=== PATIENT | male | born 1955 | race African-American/Black ===

== ENCOUNTER → 2016-08-03 | Outpatient (CLI) | payer MEDICAID, OTHER | LOC: RAD 09:10 | PROVIDERS: ATTEND Family Medicine Geriatric Medicine | DX: M54.5 Low back pain (principal); E11.9 Type 2 diabetes mellitus without complications; I10 Essential (primary) hypertension; E66.9 Obesity, unspecified; M51.37 Other intervertebral disc degeneration, lumbosacral region; M53.3 Sacrococcygeal disorders, not elsewhere classified | CPT/HCPCS: 72110; 72220 ==

== ENCOUNTER → 2016-08-04 | Outpatient (CLI) | payer MEDICAID, OTHER ==
[2016-08-04 09:24] LABS: ABSOLUTE BASOPHILS # (AUTO) 0.1 10^3/uL (0.0-0.2); ABSOLUTE LYMPHOCYTES (AUTO) 1.5 10^3/uL (0.5-4.7); ABSOLUTE MONOCYTES (AUTO) 0.6 10^3/uL (0.1-1.4); BASOPHILS % (AUTO) 0.9 % (0-2); EOSINOPHILS % (AUTO) 0.7 % (0-6); HEMATOCRIT 31.5 % (37.9-51.0); HEMOGLOBIN 10.7 g/dL (13.5-17.0); HGB HCT DIFFERENCE 0.6; LYMPHOCYTES % (AUTO) 20.6 % (13-45); MEAN CORPUSCULAR HEMOGLOBIN 28.7 pg (27.0-33.4); MEAN CORPUSCULAR HGB CONC 33.9 g/dL (32.0-36.0); MEAN CORPUSCULAR VOLUME 85 fl (80-97); MONOCYTES % (AUTO) 7.9 % (3-13); RED BLOOD COUNT 3.73 10^6/uL (4.35-5.55); RED CELL DISTRIBUTION WIDTH 14.7 % (11.5-14.0); SEGMENTED NEUTROPHILS % (AUTO) 69.9 % (42-78); WHITE BLOOD COUNT 7.1 10^3/uL (4.0-10.5)
[2016-08-04 09:46] LABS: ALANINE AMINOTRANSFERASE 23 U/L (21-72); ALBUMIN 4.2 g/dL (3.5-5.0); ALKALINE PHOSPHATASE 60 U/L (38-126); ANION GAP 15 (5-19); ASPARTATE AMINO TRANSFERASE 19 U/L (17-59); BILIRUBIN,DIRECT 0.2 mg/dL (0.0-0.4); BILIRUBIN,TOTAL 0.5 mg/dL (0.2-1.3); BLOOD UREA NITROGEN 35 mg/dL (7-20); CALCIUM 9.4 mg/dL (8.4-10.2); CARBON DIOXIDE 23 mmol/L (22-30); CHLORIDE 108 mmol/L (98-107); CHOLESTEROL 159.01 mg/dL (0-200); CREATININE RESULT 3.49 mg/dL (0.52-1.25); Direct HDL 46 mg/dL (>40); GLUCOSE 78 mg/dL (75-110); POTASSIUM 4.4 mmol/L (3.6-5.0); SODIUM 145.7 mmol/L (137-145); TOTAL PROTEIN 8.6 g/dL (6.3-8.2); TRIGLYCERIDES 89 mg/dL (<150)
[2016-08-04 09:56] LABS: DIRECT LDL 66 mg/dL (<100)
[2016-08-05 12:38] LABS: CREATININE URINE 420.9 mg/dL (Not Estab.)
[2016-08-05 13:57] LABS: MICROALBUMIN URINE 5346.1 ug/mL (Not Estab.)
== END ==
LOC: LAB 08:55
PROVIDERS: ATTEND Family Medicine Geriatric Medicine
DX: E11.9 Type 2 diabetes mellitus without complications (principal); I10 Essential (primary) hypertension; E66.9 Obesity, unspecified; Z79.899 Other long term (current) drug therapy
CPT/HCPCS: 36415; 80053; 80061; 82043; 82570; 83036; 84443; 85025

== ENCOUNTER → 2016-09-03 | Outpatient (CLI) | payer MEDICAID, OTHER ==
[2016-09-03 11:28] LABS: ABSOLUTE LYMPHOCYTES (AUTO) 0.9 10^3/uL (0.5-4.7); ABSOLUTE NEUT (AUTO) 10.5 10^3/uL (1.7-8.2); BASOPHILS % (AUTO) 0.2 % (0-2); EOSINOPHILS % (AUTO) 0.3 % (0-6); HEMOGLOBIN 10.1 g/dL (13.5-17.0); HGB HCT DIFFERENCE 0.3; LYMPHOCYTES % (AUTO) 7.6 % (13-45); MEAN CORPUSCULAR HEMOGLOBIN 28.3 pg (27.0-33.4); MEAN CORPUSCULAR HGB CONC 33.6 g/dL (32.0-36.0); MEAN CORPUSCULAR VOLUME 84 fl (80-97); MONOCYTES % (AUTO) 8.1 % (3-13); RED BLOOD COUNT 3.56 10^6/uL (4.35-5.55); RED CELL DISTRIBUTION WIDTH 14.2 % (11.5-14.0); SEGMENTED NEUTROPHILS % (AUTO) 83.8 % (42-78); WHITE BLOOD COUNT 12.5 10^3/uL (4.0-10.5)
[2016-09-03 11:56] LABS: ALANINE AMINOTRANSFERASE 91 U/L (21-72); ALBUMIN 3.8 g/dL (3.5-5.0); ALKALINE PHOSPHATASE 102 U/L (38-126); ANION GAP 16 (5-19); ASPARTATE AMINO TRANSFERASE 31 U/L (17-59); BILIRUBIN,DIRECT 0.6 mg/dL (0.0-0.4); BILIRUBIN,TOTAL 0.8 mg/dL (0.2-1.3); BLOOD UREA NITROGEN 61 mg/dL (7-20); CALCIUM 9.4 mg/dL (8.4-10.2); CARBON DIOXIDE 21 mmol/L (22-30); CHLORIDE 100 mmol/L (98-107); CREATININE RESULT 5.64 mg/dL (0.52-1.25); GLUCOSE 197 mg/dL (75-110); POTASSIUM 3.9 mmol/L (3.6-5.0); SODIUM 136.9 mmol/L (137-145); TOTAL PROTEIN 8.3 g/dL (6.3-8.2)
[2016-09-04 16:39] LABS: A/G RATIO 0.6 (0.7-1.7); ALBUMIN 2 2.9 g/dL (2.9-4.4); ALPHA-1-GLOBULIN 2 0.6 g/dL (0.0-0.4); GAMMA GLOBULIN 2.3 g/dL (0.4-1.8); PROTEIN TOTAL SERUM 7.9 g/dL (6.0-8.5)
== END ==
LOC: OD 10:36
PROVIDERS: ATTEND Internal Medicine Nephrology
DX: I12.9 Hypertensive chronic kidney disease with stage 1 through stage 4 chronic kidney disease, or unspecified chronic kidney disease (principal); N18.4 Chronic kidney disease, stage 4 (severe); E11.9 Type 2 diabetes mellitus without complications
CPT/HCPCS: 36415; 80053; 82728; 83540; 83550; 84165; 84443; 85025

== ENCOUNTER → 2016-09-03 | Outpatient (CLI) | payer MEDICAID, OTHER | LOC: OD 10:33 | PROVIDERS: ATTEND Internal Medicine Nephrology | DX: Z53.9 Procedure and treatment not carried out, unspecified reason (principal) ==

== ENCOUNTER → 2016-09-22 | Outpatient (CLI) | payer MEDICAID, OTHER ==
--- NOTE | 2016-09-22 14:01 | RADIOLOGY REPORT (SQ) ---
EXAM DESCRIPTION: U/S RETROPERITON (RENAL/AORTA) COMPLETED DATE/TIME: 09/22/2016 1:33 pm REASON FOR STUDY: CKD STAGE 4 N18.4 CHRONIC KIDNEY DISEASE, STAGE 4 (SEVERE) E11.9 TYPE 2 DIABETES MELLITUS WITHOUT COMPLICATIONS COMPARISON: 07/19/2015. TECHNIQUE: Dynamic and static grayscale images acquired of the kidneys and bladder and recorded on P ACS. Additional selected color Doppler and spectral images recorded. LIMITATIONS: None. FINDINGS: RIGHT KIDNEY: Normal size. Mild increased echogenicity. 2.6 cm cortical cyst. No carla id or suspicious masses. No hydronephrosis. No calcifications. LEFT KIDNEY: Normal size. Mild increased echogenicity. No solid or suspicious masses. No hydro nephrosis. No calcifications. BLADDER: No masses. OTHER FINDINGS: No other significant finding. IMPRESSION: MILD INCREASED ECHOGENICITY OF THE KIDNEYS CONSISTENT WITH CHRONIC RENAL DISEASE. CORTI LILY CYST IN THE RIGHT KIDNEY. NO HYDRONEPHROSIS. TECHNICAL DOCUMENTATION: JOB ID: [id number] [employer]- All Rights Reserved
== END ==
LOC: RAD 12:10
PROVIDERS: ATTEND Internal Medicine Nephrology
DX: E11.22 Type 2 diabetes mellitus with diabetic chronic kidney disease (principal); I12.9 Hypertensive chronic kidney disease with stage 1 through stage 4 chronic kidney disease, or unspecified chronic kidney disease; N18.4 Chronic kidney disease, stage 4 (severe); D64.9 Anemia, unspecified
CPT/HCPCS: 76770

== ENCOUNTER → 2016-10-19 | Outpatient (CLI) | payer MEDICAID, OTHER ==
[2016-10-19 15:27] LABS: HEMATOCRIT 29.4 % (37.9-51.0); HEMOGLOBIN 10.1 g/dL (13.5-17.0); HGB HCT DIFFERENCE 0.9; MEAN CORPUSCULAR HEMOGLOBIN 29.5 pg (27.0-33.4); MEAN CORPUSCULAR HGB CONC 34.2 g/dL (32.0-36.0); MEAN CORPUSCULAR VOLUME 86 fl (80-97); RED BLOOD COUNT 3.41 10^6/uL (4.35-5.55); WHITE BLOOD COUNT 6.4 10^3/uL (4.0-10.5)
[2016-10-19 15:51] LABS: ANION GAP 11 (5-19); BLOOD UREA NITROGEN 35 mg/dL (7-20); CALCIUM 8.7 mg/dL (8.4-10.2); CARBON DIOXIDE 25 mmol/L (22-30); CHLORIDE 106 mmol/L (98-107); GLUCOSE 126 mg/dL (75-110); PHOSPHORUS 4.4 mg/dL (2.5-4.5); POTASSIUM 4.4 mmol/L (3.6-5.0); SODIUM 141.9 mmol/L (137-145)
== END ==
LOC: LAB 14:59
PROVIDERS: ATTEND Internal Medicine Nephrology
DX: I12.9 Hypertensive chronic kidney disease with stage 1 through stage 4 chronic kidney disease, or unspecified chronic kidney disease (principal); N18.4 Chronic kidney disease, stage 4 (severe); R80.9 Proteinuria, unspecified; D64.9 Anemia, unspecified
CPT/HCPCS: 36415; 80048; 82728; 83540; 83550; 83970; 84100; 85027

== ENCOUNTER → 2016-11-03 | Outpatient (CLI) | payer MEDICAID ==
[2016-11-03 09:05] LABS: HEMATOCRIT 29.4 % (37.9-51.0); HEMOGLOBIN 10.1 g/dL (13.5-17.0); HGB HCT DIFFERENCE 0.9; MEAN CORPUSCULAR HEMOGLOBIN 29.5 pg (27.0-33.4); MEAN CORPUSCULAR HGB CONC 34.5 g/dL (32.0-36.0); MEAN CORPUSCULAR VOLUME 86 fl (80-97); RED BLOOD COUNT 3.43 10^6/uL (4.35-5.55); WHITE BLOOD COUNT 6.8 10^3/uL (4.0-10.5)
[2016-11-03 09:29] LABS: ANION GAP 11 (5-19); BLOOD UREA NITROGEN 31 mg/dL (7-20); CALCIUM 9.1 mg/dL (8.4-10.2); CARBON DIOXIDE 24 mmol/L (22-30); CHLORIDE 110 mmol/L (98-107); CREATININE RESULT 3.48 mg/dL (0.52-1.25); GLUCOSE 63 mg/dL (75-110); PHOSPHORUS 3.9 mg/dL (2.5-4.5); POTASSIUM 4.3 mmol/L (3.6-5.0); SODIUM 145.1 mmol/L (137-145)
== END ==
LOC: LAB 08:51
PROVIDERS: ATTEND Internal Medicine Nephrology
DX: I12.9 Hypertensive chronic kidney disease with stage 1 through stage 4 chronic kidney disease, or unspecified chronic kidney disease (principal); N18.4 Chronic kidney disease, stage 4 (severe); R80.9 Proteinuria, unspecified; D64.9 Anemia, unspecified; E11.9 Type 2 diabetes mellitus without complications
CPT/HCPCS: 36415; 80048; 83735; 83970; 84100; 85027

== ENCOUNTER → 2017-01-22 | Outpatient (CLI) | payer MEDICAID ==
[2017-01-22 10:51] LABS: HEMATOCRIT 31.7 % (37.9-51.0); HGB HCT DIFFERENCE 1.3; MEAN CORPUSCULAR HEMOGLOBIN 29.9 pg (27.0-33.4); MEAN CORPUSCULAR HGB CONC 34.8 g/dL (32.0-36.0); MEAN CORPUSCULAR VOLUME 86 fl (80-97); RED BLOOD COUNT 3.68 10^6/uL (4.35-5.55); RED CELL DISTRIBUTION WIDTH 14.6 % (11.5-14.0); WHITE BLOOD COUNT 6.4 10^3/uL (4.0-10.5)
[2017-01-22 11:09] LABS: ANION GAP 13 (5-19); BLOOD UREA NITROGEN 30 mg/dL (7-20); CALCIUM 9.4 mg/dL (8.4-10.2); CARBON DIOXIDE 26 mmol/L (22-30); CHLORIDE 109 mmol/L (98-107); CREATININE RESULT 3.77 mg/dL (0.52-1.25); GLUCOSE 63 mg/dL (75-110); MAGNESIUM 1.9 mg/dL (1.6-2.3); PHOSPHORUS 3.6 mg/dL (2.5-4.5); SODIUM 147.8 mmol/L (137-145)
== END ==
LOC: LAB 10:35
PROVIDERS: ATTEND Internal Medicine Nephrology
DX: I12.9 Hypertensive chronic kidney disease with stage 1 through stage 4 chronic kidney disease, or unspecified chronic kidney disease (principal); N18.4 Chronic kidney disease, stage 4 (severe); D64.9 Anemia, unspecified; R80.9 Proteinuria, unspecified; E11.9 Type 2 diabetes mellitus without complications
CPT/HCPCS: 36415; 80048; 83735; 83970; 84100; 85027

== ENCOUNTER → 2017-02-09 | Outpatient (CLI) | payer MEDICAID ==
[2017-02-09 10:48] LABS: MEAN CORPUSCULAR HEMOGLOBIN 29.7 pg (27.0-33.4); MEAN CORPUSCULAR HGB CONC 34.4 g/dL (32.0-36.0); MEAN CORPUSCULAR VOLUME 86 fl (80-97); RED BLOOD COUNT 3.71 10^6/uL (4.35-5.55); RED CELL DISTRIBUTION WIDTH 14.2 % (11.5-14.0); WHITE BLOOD COUNT 6.5 10^3/uL (4.0-10.5)
[2017-02-09 10:52] LABS: APPEARANCE,URINE SLIGHTLY-CLOUDY; BILIRUBIN,URINE NEGATIVE (NEGATIVE); GLUCOSE, URINE NEGATIVE (NEGATIVE); KETONES,URINE NEGATIVE (NEGATIVE); LEUKOCYTE ESTERASE,URINE NEGATIVE (NEGATIVE); NITRITE,URINE NEGATIVE (NEGATIVE); PROTEIN,URINE >=500 mg/dL (NEGATIVE); URINE SPECIFIC GRAVITY 1.017; UROBILINOGEN,URINE NEGATIVE mg/dL (<2.0)
[2017-02-09 11:10] LABS: ANION GAP 11 (5-19); BLOOD UREA NITROGEN 28 mg/dL (7-20); CARBON DIOXIDE 27 mmol/L (22-30); CHLORIDE 109 mmol/L (98-107); CREATININE RESULT 3.68 mg/dL (0.52-1.25); GLUCOSE 66 mg/dL (75-110); POTASSIUM 3.6 mmol/L (3.6-5.0); SODIUM 146.6 mmol/L (137-145)
[2017-02-09 11:51] LABS: URINE PROTEIN 747.9 mg/dL (<12)
== END ==
LOC: LAB 10:36
PROVIDERS: ATTEND Physician Assistant Medical
DX: N18.4 Chronic kidney disease, stage 4 (severe) (principal); E11.9 Type 2 diabetes mellitus without complications; D64.9 Anemia, unspecified; R80.9 Proteinuria, unspecified
CPT/HCPCS: 36415; 80048; 81001; 82570; 84156; 85027

== ENCOUNTER → 2017-03-25 | Outpatient (CLI) | payer MEDICAID ==
[2017-03-25 09:34] LABS: HEMOGLOBIN 10.7 g/dL (13.5-17.0); HGB HCT DIFFERENCE 1.1; MEAN CORPUSCULAR HEMOGLOBIN 29.8 pg (27.0-33.4); MEAN CORPUSCULAR HGB CONC 34.6 g/dL (32.0-36.0); MEAN CORPUSCULAR VOLUME 86 fl (80-97); RED CELL DISTRIBUTION WIDTH 14.1 % (11.5-14.0); WHITE BLOOD COUNT 7.5 10^3/uL (4.0-10.5)
[2017-03-25 09:35] LABS: APPEARANCE,URINE SLIGHTLY-CLOUDY; BILIRUBIN,URINE NEGATIVE (NEGATIVE); GLUCOSE, URINE NEGATIVE (NEGATIVE); KETONES,URINE NEGATIVE (NEGATIVE); LEUKOCYTE ESTERASE,URINE NEGATIVE (NEGATIVE); NITRITE,URINE NEGATIVE (NEGATIVE); PROTEIN,URINE >=500 mg/dL (NEGATIVE); UROBILINOGEN,URINE NEGATIVE mg/dL (<2.0)
[2017-03-25 10:15] LABS: URINE CREATININE 297.6 mg/dL (22-328)
[2017-03-25 10:36] LABS: ANION GAP 12 (5-19); BLOOD UREA NITROGEN 32 mg/dL (7-20); CARBON DIOXIDE 25 mmol/L (22-30); CHLORIDE 110 mmol/L (98-107); CREATININE RESULT 4.27 mg/dL (0.52-1.25); GLUCOSE 46 mg/dL (75-110); POTASSIUM 3.8 mmol/L (3.6-5.0); SODIUM 147.3 mmol/L (137-145)
[2017-03-25 10:38] LABS: URINE PROTEIN 953.1 mg/dL (<12)
== END ==
LOC: LAB 09:16
PROVIDERS: ATTEND Physician Assistant Medical
DX: N18.4 Chronic kidney disease, stage 4 (severe) (principal); E11.9 Type 2 diabetes mellitus without complications; D64.9 Anemia, unspecified; R80.9 Proteinuria, unspecified
CPT/HCPCS: 36415; 80048; 81001; 82570; 84156; 85027

== ENCOUNTER → 2017-05-17 | Outpatient (CLI) | payer MEDICAID ==
[2017-05-17 09:21] LABS: HEMATOCRIT 31.4 % (37.9-51.0); HEMOGLOBIN 10.8 g/dL (13.5-17.0); MEAN CORPUSCULAR HEMOGLOBIN 29.8 pg (27.0-33.4); MEAN CORPUSCULAR HGB CONC 34.4 g/dL (32.0-36.0); MEAN CORPUSCULAR VOLUME 87 fl (80-97); PLATELET COUNT 397 10^3/uL (150-450); RED BLOOD COUNT 3.62 10^6/uL (4.35-5.55); RED CELL DISTRIBUTION WIDTH 14.4 % (11.5-14.0); WHITE BLOOD COUNT 7.5 10^3/uL (4.0-10.5)
[2017-05-17 09:33] LABS: ANION GAP 9 (5-19); BLOOD UREA NITROGEN 36 mg/dL (7-20); CALCIUM 9.7 mg/dL (8.4-10.2); CARBON DIOXIDE 26 mmol/L (22-30); CHLORIDE 109 mmol/L (98-107); GLUCOSE 119 mg/dL (75-110); PHOSPHORUS 3.4 mg/dL (2.5-4.5); POTASSIUM 4.2 mmol/L (3.6-5.0); SODIUM 144.1 mmol/L (137-145)
== END ==
LOC: LAB 08:50
PROVIDERS: ATTEND Internal Medicine Nephrology
DX: N18.4 Chronic kidney disease, stage 4 (severe) (principal); R80.9 Proteinuria, unspecified; D64.9 Anemia, unspecified; E11.9 Type 2 diabetes mellitus without complications
CPT/HCPCS: 36415; 80048; 83970; 84100; 85027

== ENCOUNTER → 2017-07-27 | Outpatient (CLI) | payer MEDICAID ==
[2017-07-27 09:53] LABS: HEMATOCRIT 33.2 % (37.9-51.0); HEMOGLOBIN 11.3 g/dL (13.5-17.0); MEAN CORPUSCULAR HEMOGLOBIN 29.9 pg (27.0-33.4); MEAN CORPUSCULAR HGB CONC 34.1 g/dL (32.0-36.0); MEAN CORPUSCULAR VOLUME 88 fl (80-97); PLATELET COUNT 360 10^3/uL (150-450); RED BLOOD COUNT 3.78 10^6/uL (4.35-5.55); RED CELL DISTRIBUTION WIDTH 13.9 % (11.5-14.0); WHITE BLOOD COUNT 7.9 10^3/uL (4.0-10.5)
[2017-07-27 10:10] LABS: ANION GAP 14 (5-19); BLOOD UREA NITROGEN 49 mg/dL (7-20); CALCIUM 9.1 mg/dL (8.4-10.2); CARBON DIOXIDE 24 mmol/L (22-30); CHLORIDE 109 mmol/L (98-107); GLUCOSE 156 mg/dL (75-110); PHOSPHORUS 3.9 mg/dL (2.5-4.5); POTASSIUM 4.4 mmol/L (3.6-5.0); SODIUM 146.6 mmol/L (137-145)
== END ==
LOC: LAB 09:26
PROVIDERS: ATTEND Internal Medicine Nephrology
DX: N18.4 Chronic kidney disease, stage 4 (severe) (principal); E11.9 Type 2 diabetes mellitus without complications; D64.9 Anemia, unspecified; R80.9 Proteinuria, unspecified
CPT/HCPCS: 36415; 80048; 83970; 84100; 85027

== ENCOUNTER → 2017-09-28 | Outpatient (CLI) | payer MEDICAID ==
[2017-09-28 09:29] LABS: HEMATOCRIT 30.5 % (37.9-51.0); HEMOGLOBIN 10.5 g/dL (13.5-17.0); MEAN CORPUSCULAR HEMOGLOBIN 30.4 pg (27.0-33.4); MEAN CORPUSCULAR HGB CONC 34.3 g/dL (32.0-36.0); MEAN CORPUSCULAR VOLUME 89 fl (80-97); PLATELET COUNT 423 10^3/uL (150-450); RED BLOOD COUNT 3.44 10^6/uL (4.35-5.55); RED CELL DISTRIBUTION WIDTH 13.5 % (11.5-14.0); WHITE BLOOD COUNT 8.9 10^3/uL (4.0-10.5)
[2017-09-28 09:59] LABS: ANION GAP 11 (5-19); BLOOD UREA NITROGEN 48 mg/dL (7-20); CALCIUM 9.3 mg/dL (8.4-10.2); CARBON DIOXIDE 25 mmol/L (22-30); CHLORIDE 110 mmol/L (98-107); GLUCOSE 91 mg/dL (75-110); IRON(TIBC) 67.7 ug/dL (49-181); PHOSPHORUS 4.5 mg/dL (2.5-4.5); POTASSIUM 5.1 mmol/L (3.6-5.0); SODIUM 146.1 mmol/L (137-145)
[2017-09-28 10:00] LABS: URINE CREATININE 255.2 mg/dL (22-328)
[2017-09-28 10:14] LABS: URINE PROTEIN 520.7 mg/dL (<12)
== END ==
LOC: LAB 09:07
PROVIDERS: ATTEND Physician Assistant Medical
DX: E11.22 Type 2 diabetes mellitus with diabetic chronic kidney disease (principal); N18.4 Chronic kidney disease, stage 4 (severe); R80.9 Proteinuria, unspecified
CPT/HCPCS: 36415; 80048; 82570; 82728; 83540; 83550; 83970; 84100; 84156; 85027

== ENCOUNTER → 2017-11-29 | Outpatient (CLI) | payer MEDICAID ==
--- NOTE | 2017-11-29 11:28 | RADIOLOGY REPORT (SQ) ---
EXAM DESCRIPTION: CHEST 2 VIEWS COMPLETED DATE/TIME: 11/29/2017 11:18 am REASON FOR STUDY: SHORTNESS OF BREATH COMPARISON: AP chest 10/27/2015 EXAM PARAMETERS: NUMBER OF VIEWS: two views TECHNIQUE: Digital Frontal and Lateral radiographic views of the chest acquired. RADIATION DOSE: NA LIMITATIONS: none FINDINGS: LUNGS AND PLEURA: Trace bilateral pleural effusions right greater than left. Minimal right basilar airspace disease atelectasis versus pneumonia. No pneumothorax. MEDIASTINUM AND HILAR STRUCTURES: No masses or contour abnormalities. HEART AND VASCULAR STRUCTURES: Heart normal size. No evidence for failure. BONES: No acute findings. HARDWARE: None in the chest. OTHER: Results discussed with Dr. Briceno IMPRESSION: Trace bilateral pleural effusions right greater than left Right basilar airspace disease atelectasis versus pneumonia TECHNICAL DOCUMENTATION: JOB ID: [id number] [employer]- All Rights Reserved Reading location - IP/workstation name: [email or web address]
== END ==
LOC: RAD 11:07
PROVIDERS: ATTEND Family Medicine
DX: R06.02 Shortness of breath (principal)
CPT/HCPCS: 71046

== ENCOUNTER 2017-12-08 15:00 | Emergency (ER) | payer MEDICAID ==
--- NOTE | 2017-12-08 15:27 | ER Document Report ---
ED Medical Screen (RME) - General Chief Complaint: Breathing Difficulty Stated Complaint: DIFFICULTY BREATHING Time Seen by Provider: 12/08/17 15:26 Notes: 62 years old male presents today with shortness of breath on minimal exertion. Denies any chest pain. He has been going on for the last few days to weeks. Has a history of renal insufficiency as well as hypertension. Diabetic TRAVEL OUTSIDE OF THE [place] IN LAST 30 DAYS: No - Related Data Allergies/Adverse Reactions: No Known Allergies Allergy (Verified 09/14/15 08:13) Past Medical History - Social History Frequency of alcohol use: None Drug Abuse: None - Past Medical History Cardiac Medical History: Reports: Hx Hypercholesterolemia, Hx Hypertension Pulmonary Medical History: Reports: Hx Asthma Endocrine Medical History: Reports: Hx Diabetes Mellitus Type 1, Hx Diabetes Mellitus Type 2 - TAKES INSULIN Renal/ Medical History: Denies: Hx Peritoneal Dialysis Psychiatric Medical History: Denies: Hx Depression - Immunizations Immunizations up to date: Yes Physical Exam - Vital signs Vitals: Temp Pulse Resp BP Pulse Ox 98.4 F 78 22 H 164/76 H 99 12/08/17 15:06 12/08/17 15:06 12/08/17 15:06 12/08/17 15:06 12/08/17 15:06 Course - Vital Signs Vital signs: Temp Pulse Resp BP Pulse Ox 98.4 F 78 24 H 164/76 H 99 12/08/17 15:06 12/08/17 15:06 12/08/17 15:22 12/08/17 15:06 12/08/17 15:06 Doctor's Discharge - Discharge Referrals: JACY ARANGO MD [Primary Care Provider] - Follow up as needed
[2017-12-08 16:15] LABS: ABSOLUTE BASOPHILS # (AUTO) 0.1 10^3/uL (0.0-0.2); ABSOLUTE EOSINOPHILS # (AUTO) 0.1 10^3/uL (0.0-0.6); ABSOLUTE MONOCYTES (AUTO) 0.9 10^3/uL (0.1-1.4); ABSOLUTE NEUT (AUTO) 8.8 10^3/uL (1.7-8.2); BASOPHILS % (AUTO) 0.7 % (0-2); EOSINOPHILS % (AUTO) 0.6 % (0-6); HEMATOCRIT 25.6 % (37.9-51.0); HEMOGLOBIN 8.7 g/dL (13.5-17.0); LYMPHOCYTES % (AUTO) 8.9 % (13-45); MEAN CORPUSCULAR HEMOGLOBIN 30.3 pg (27.0-33.4); MEAN CORPUSCULAR HGB CONC 34.2 g/dL (32.0-36.0); MEAN CORPUSCULAR VOLUME 89 fl (80-97); MONOCYTES % (AUTO) 8.2 % (3-13); PLATELET COUNT 385 10^3/uL (150-450); RED BLOOD COUNT 2.88 10^6/uL (4.35-5.55); RED CELL DISTRIBUTION WIDTH 14.3 % (11.5-14.0); SEGMENTED NEUTROPHILS % (AUTO) 81.6 % (42-78); TOTAL CELLS COUNTED % (AUTO) 100 %; WHITE BLOOD COUNT 10.8 10^3/uL (4.0-10.5)
[2017-12-08 16:27] LABS: ALANINE AMINOTRANSFERASE 20 U/L (21-72); ALKALINE PHOSPHATASE 48 U/L (38-126); ANION GAP 16 (5-19); ASPARTATE AMINO TRANSFERASE 32 U/L (17-59); BILIRUBIN,DIRECT 0.4 mg/dL (0.0-0.4); BILIRUBIN,TOTAL 0.7 mg/dL (0.2-1.3); BLOOD UREA NITROGEN 51 mg/dL (7-20); CALCIUM 8.7 mg/dL (8.4-10.2); CARBON DIOXIDE 19 mmol/L (22-30); CHLORIDE 115 mmol/L (98-107); CREATINE KINASE 201 U/L (55-170); GLUCOSE 99 mg/dL (75-110); SODIUM 149.5 mmol/L (137-145); TOTAL PROTEIN 8.5 g/dL (6.3-8.2)
--- NOTE | 2017-12-08 16:29 | RADIOLOGY REPORT (SQ) ---
EXAM DESCRIPTION: CHEST SINGLE VIEW COMPLETED DATE/TIME: 12/08/2017 4:16 pm REASON FOR STUDY: Shortness of breath COMPARISON: 12/08/2017 EXAM PARAMETERS: NUMBER OF VIEWS: One view. TECHNIQUE: Single frontal radiographic view of the chest acquired. RADIATION DOSE: NA LIMITATIONS: None. FINDINGS: LUNGS AND PLEURA: Minimal residual left effusion slightly less prominent than on the prior study. No right effusion. Lungs appear free of active infiltrates. MEDIASTINUM AND HILAR STRUCTURES: No masses. Contour normal. HEART AND VASCULAR STRUCTURES: Heart normal in size. Normal vasculature. BONES: No acute findings. HARDWARE: None in the chest. OTHER: No other significant finding. IMPRESSION: Minimal residual left effusion. TECHNICAL DOCUMENTATION: JOB ID: [id number] [employer])- All Rights Reserved Reading location - IP/workstation name: [email or web address]
[2017-12-08 16:35] LABS: CREATINE KINASE MB 2.71 ng/mL (<4.55); TROPONIN I 0.015 ng/mL
--- NOTE | 2017-12-08 18:52 | ER Document Report ---
ED Respiratory Problem - HPI Patient complains to provider of: COPD Onset: Other - Past 2 months Duration: Continuous Quality of pain: No pain Severity: None Pain Level: Denies Context: Other - Remote history of "asthma" Short of Breath: Moderate Cough: Nonproductive Sputum amount: None Sputum color: denies: Brown, Clear, Creamy, [place], Green, [place] tinged, Red (blood ), Red Specks, Rust, Small Clots, Gant, White, Yellow At home treatment: denies: Bronchodilators, CPAP, Diuretics, Inhaled steroids, Oral steroids, Oxygen, Singulair, Theophylline EMS treatments: No: Bronchodilators, CPAP, Diuretics, Epinephrine, Nitrates, Oxygen, Solumedrol Associated symptoms: Ankle/leg swelling, Cough, Difficulty breathing Similar symptoms previously: Yes Recently seen / treated by doctor: Yes <MALINI WHELAN - Last Filed: 12/09/17 03:16> - General TRAVEL OUTSIDE OF THE [place] IN LAST 30 DAYS: No <RHONDA HARMON - Last Filed: 12/09/17 13:38> - General Chief Complaint: Breathing Difficulty Stated Complaint: DIFFICULTY BREATHING Time Seen by Provider: 12/08/17 15:26 Notes: Patient says that he has been short of breath and "cannot breathe" for the past couple of weeks or more. Says he cannot walk across the room without getting short of breath. He was seen at a local office yesterday and had some labs ordered to be done as an outpatient today and they showed worsening of his kidney disease and he was referred here for further workup and evaluation. Patient has been seen by Dr. Jade, local operating system programmer, and has had discussions of the possibility of needing dialysis eventually. His last visit with Dr. Jade was a couple of months ago. He does not have as much coughing, just shortness of breath. He has a history of asthma but not COPD. He has inhalers that he uses for his asthma. Has not been diagnosed with COPD. Last smoked cigarettes over 20 years ago. PMH: IDDM. Hypertension. (RHONDA HARMON) - Related Data Allergies/Adverse Reactions: No Known Allergies Allergy (Verified 09/14/15 08:13) Past Medical History - General Information source: Patient - Social History Cigarette use (# per day): No Chew tobacco use (# tins/day): No Lives with: Family <MALINI WHELAN - Last Filed: 12/09/17 03:16> - Social History Smoking Status: Former Smoker Frequency of alcohol use: None Drug Abuse: None Family History: Reviewed & Not Pertinent, Hypertension. denies: CAD, CVA Patient has suicidal ideation: No Patient has homicidal ideation: No - Past Medical History Cardiac Medical History: Reports: Hx Hypercholesterolemia, Hx Hypertension Pulmonary Medical History: Reports: Hx Asthma Endocrine Medical History: Reports: Hx Diabetes Mellitus Type 1, Hx Diabetes Mellitus Type 2 - TAKES INSULIN Renal/ Medical History: Reports: Hx Renal Insufficiency. Denies: Hx Peritoneal Dialysis - Immunizations Immunizations up to date: Yes <RHONDA HARMON - Last Filed: 12/09/17 13:38> Review of Systems - Review of Systems Constitutional: denies: Chills, Fever EENT: No symptoms reported Cardiovascular: denies: Chest pain, Palpitations, Heart racing, Orthopnea Respiratory: Cough, Short of breath Gastrointestinal: denies: Abdominal pain, Diarrhea, Vomiting Genitourinary: No symptoms reported Male Genitourinary: No symptoms reported Musculoskeletal: No symptoms reported Skin: No symptoms reported Hematologic/Lymphatic: No symptoms reported Neurological/Psychological: No symptoms reported <MALINI WHELAN - Last Filed: 12/09/17 03:16> <RHONDA HARMON - Last Filed: 12/09/17 13:38> - Review of Systems Notes: REVIEW OF SYSTEMS: CONSTITUTIONAL : Denies fever. EENT: Denies eye, ear, nose or mouth or throat pain or other symptoms. CARDIOVASCULAR: Denies chest pain. Denies swelling of either lower extremities. No pain in either lower extremity. RESPIRATORY: See HPI. GASTROINTESTINAL: Denies abdominal pain or nausea, vomiting, or diarrhea. GENITOURINARY: Denies difficulty or painful urinating, urinary frequency, blood in urine. MUSCULOSKELETAL: Denies back or neck pain. Denies joint pain or swelling. SKIN: Denies rash or skin lesions. NEUROLOGICAL: Denies LOC or altered mental status. Denies headache. Denies sensory loss or motor deficits. ALL OTHER SYSTEMS REVIEWED AND NEGATIVE. (RHONDA HARMON) Physical Exam <TIPMALINI - Last Filed: 12/09/17 03:16> - Vital signs Interpretation: Hypertensive - Minor <RHONDA HARMON - Last Filed: 12/09/17 13:38> - Vital signs Vitals: Temp Pulse Resp BP Pulse Ox 98.4 F 78 22 H 164/76 H 99 12/08/17 15:06 12/08/17 15:06 12/08/17 15:06 12/08/17 15:06 12/08/17 15:06 Notes: Physical exam: GENERAL: 62-year-old man, alert oriented 3 HEAD: Atraumatic, normocephalic. EYES: Pupils equal round and reactive to light, extraocular movements intact, sclera anicteric, conjunctiva are normal. ENT: TMs normal, nares patent, oropharynx clear without exudates. Moist mucous membranes. NECK: Normal range of motion, supple without obvious mass or JVD. LUNGS: Decreased breath sounds bilaterally HEART: Regular rate and rhythm without murmurs, rubs or gallops. ABDOMEN: Soft, normoactive bowel sounds. No tenderness to palpation. No guarding, no rebound. No masses appreciated. EXTREMITIES: Mild edema distally. Left arm AV shunt (not used yet). NEUROLOGICAL: Cranial nerves II through XII grossly intact. Normal speech, moving all extremities. PSYCH: Normal mood, normal affect. SKIN: Warm, Dry, normal turgor, no rashes or lesions noted. (MALINI WHELAN) - Notes Notes: PHYSICAL EXAMINATION: GENERAL: Well-appearing, in no acute distress. Vital signs all essentially normal with only recent blood pressure. Patient does exhibit some grunting sort of respirations with movement about on the stretcher. Says it improves his breathing when he sits up. Seems to worsen his breathing when he ambulates. HEAD: Atraumatic, normocephalic. EYES: Pupils equal round and reactive to light, extraocular movements intact. ENT: oropharynx clear without exudates. Moist mucous membranes. NECK: Normal range of motion, supple. LUNGS: Only a few scattered rhonchi noted in the bases posteriorly. No wheezes heard. HEART: Regular rate and rhythm without murmurs. ABDOMEN: Soft, nontender. No guarding or rebound. No masses. BACK: No tenderness throughout entire back. EXTREMITIES: Normal range of motion without pain. Negative Homans bilaterally. No significant pretibial pitting edema of either lower extremity. NEUROLOGICAL: Normal speech, normal gait. Normal sensory, motor, and reflex exams. Awake, alert, and oriented x3. Cranial nerves normal. PSYCH: Normal mood, normal affect SKIN: Warm, dry, no rashes. (HRONDA HARMON) Course - Laboratory Result Diagrams: 12/08/17 15:50 12/08/17 15:50 - Diagnostic Test Radiology reviewed: Image reviewed, Reports reviewed - VQ scan shows no evidence of PE. <MALINI WHELAN - Last Filed: 12/09/17 03:16> - Laboratory Result Diagrams: 12/08/17 15:50 12/08/17 15:50 - EKG Interpretation by Me EKG shows normal: Sinus rhythm Rate: Normal Rhythm: NSR <RHONDA HARMON - Last Filed: 12/09/17 13:38> - Re-evaluation Re-evalutation: 12/08/17 23:18 I had a long conversation with the patient and family members regarding the etiology of the patient's shortness of breath. His kidney function is definitely worse and we are just trying to prolong dialysis as long as possible. This is what the patient wants. He did have a remote history of asthma and wheezing and I did give him a nebulizer and he felt better after, so I will send him home with a nebulizer machine, albuterol and an inhaler. He will follow-up with Dr. Jade of nephrology. 12/09/17 03:19 (MALINI WHELAN) 12/08/17 19:02 Relistened to patient and still does not have any acute findings on auscultation. Patient's O2 sat on room air is 95%. I discussed this case with Dr. Eric Jade, this patient's operating system programmer. Dr. Jade recommended we do a VQ lung scan blood gases and reassess the situation at that time. (RHONDA HARMON) - Vital Signs Vital signs: Temp Pulse Resp BP Pulse Ox 97.8 F 78 19 159/89 H 98 12/08/17 23:42 12/08/17 15:06 12/08/17 23:38 12/08/17 23:38 12/08/17 23:38 - Laboratory Laboratory results interpreted by me: 12/08/17 12/08/17 12/08/17 15:50 15:50 15:50 WBC 10.8 H RBC 2.88 L Hgb 8.7 L Hct 25.6 L RDW 14.3 H Seg Neutrophils % 81.6 H Lymphocytes % 8.9 L Absolute Neutrophils 8.8 H ABG pH ABG pO2 ABG HCO3 ABG Total CO2 Sodium 149.5 H Chloride 115 H Carbon Dioxide 19 L BUN 51 H Creatinine 5.33 H Est GFR ( Amer) 13 L Est GFR (Non-Af Amer) 11 L ALT 20 L Creatine Kinase 201 H NT-Pro-B Natriuret Pep 9980 H Total Protein 8.5 H Urine Protein Urine Blood 12/08/17 12/08/17 20:40 21:46 WBC RBC Hgb Hct RDW Seg Neutrophils % Lymphocytes % Absolute Neutrophils ABG pH 7.33 L ABG pO2 78.2 L ABG HCO3 19.8 L ABG Total CO2 21.0 L Sodium Chloride Carbon Dioxide BUN Creatinine Est GFR ( Amer) Est GFR (Non-Af Amer) ALT Creatine Kinase NT-Pro-B Natriuret Pep Total Protein Urine Protein 100 H Urine Blood SMALL H - Diagnostic Test Radiology results interpreted by me: 12/08/17 19:14 Chest x-ray shows some residual left pleural effusion. Patient has had a previous chest x-ray here on November 29 that had shown trace pleural effusions bilaterally. (RHONDA HARMON) Discharge <MALINI WHELAN - Last Filed: 12/09/17 03:16> <RHONDA HARMON - Last Filed: 12/09/17 13:38> - Discharge Clinical Impression: Shortness of breath, CKD (chronic kidney disease), stage III, Diabetes mellitus type 1, Chronic renal insufficiency, Reactive airway disease Condition: Stable Disposition: HOME, SELF-CARE Additional Instructions: As we discussed, your lungs did sound better after nebulizer treatment. Some of your shortness of breath could be due to some reactive airway disease (i.e. wheezing). I have given you a nebulizer with some albuterol as well as an inhaler in case he may get some benefit from this. I do believe a significant component of your shortness of breath ultimately is that your kidney function is worsening. I do want you to follow-up with Dr. Jade. The lung scan this evening showed no blood clots. The oxygen level and your blood test was quite good. Return to the emergency room for any worsening shortness of breath or any concerns or getting worse. You can use the nebulizer: Every 6 hours, 1 vial of albuterol via nebulizer. When not using the nebulizer, you can use the inhaler: 2 puffs every 6 hours for wheezing or shortness of breath. Continue all other medicines. Prescriptions: Albuterol Sulfate [Albuterol Sulfate 2.5mg/3 mL] 1 vial IH Q4 PRN #10 vial PRN Reason: Nebulizer [Nebulizer Machine] 1 each MC ASDIR PRN #1 kit PRN Reason: Referrals: Helder JADE MD [ACTIVE STAFF] - Follow up in 3-5 days JACY ARANGO MD [Primary Care Provider] - Follow up in 3-5 days
--- NOTE | 2017-12-08 19:21 | EKG REPORT ---
SEVERITY:- BORDERLINE ECG - SINUS RHYTHM PROBABLE LEFT ATRIAL ABNORMALITY NONSPECIFIC ST-T CHANGES LATERAL LEADS : Confirmed by: Pradeep Navarrete MD 08-Dec-2017 19:20:47
--- NOTE | 2017-12-08 20:28 | RADIOLOGY REPORT (SQ) ---
EXAM DESCRIPTION: NM LUNG VENT/PERF SCAN COMPLETED DATE/TIME: 12/08/2017 8:02 pm REASON FOR STUDY: Shortness of breath COMPARISON: Earlier chest radiograph RADIONUCLIDE AND DOSE: 5.15 millicuries TC-99m MAA Intravenous 30.3 millicuries TC-99m DTPA Inhaled aerosol TECHNIQUE: Eight views of the lungs acquired post ventilation of DTPA aerosol. Eight matching views of the lungs acquired following injection of MAA. LIMITATIONS: None. FINDINGS: VENTILATION: Heterogeneous centralized distribution of DTPA aerosol during ventilatory pha se. PERFUSION: Perfusion images with normal homogenous activity and no wedge-shaped or segmental defects. No ventilation-perfusion mismatches. OTHER: No other significant finding. IMPRESSION: No ventilation-perfusion mismatches. TECHNICAL DOCUMENTATION: JOB ID: [id number] 2010 [employer]- All Rights Reserved Reading location - IP/workstation name: [email or web address]
[2017-12-08 20:58] LABS: ARTERIAL BLOOD BASE EXCESS -5.6 mmol/L; ARTERIAL BLOOD H2CO3 1.16 mmol/L (1.05-1.35); ARTERIAL BLOOD HCO3 19.8 mmol/L (20-24); ARTERIAL BLOOD O2 SATURATION 94.8 % (94-98); ARTERIAL BLOOD PCO2 38.4 mmHg (35-45); ARTERIAL BLOOD PH 7.33 (7.35-7.45); ARTERIAL BLOOD PO2 78.2 mmHg (80-100)
[2017-12-08 21:00] LABS: ARTERIAL BLOOD FIO2 ROOMAIR
[2017-12-08] MEDS ORDERED: IPRATROPIUM/ALBUTEROL 0.5-2.5 MG/3 ML AMPUL NEB ONE (21:54)
[2017-12-08] MEDS ORDERED: NITROGLYCERIN 2% OINTMENT 1 GM PACKET TP ONE (21:54)
[2017-12-08 21:57] LABS: APPEARANCE,URINE CLEAR; BILIRUBIN,URINE NEGATIVE (NEGATIVE); COLOR,URINE YELLOW; GLUCOSE, URINE NEGATIVE (NEGATIVE); KETONES,URINE NEGATIVE (NEGATIVE); LEUKOCYTE ESTERASE,URINE NEGATIVE (NEGATIVE); NITRITE,URINE NEGATIVE (NEGATIVE); PROTEIN,URINE 100 mg/dL (NEGATIVE); URINE SPECIFIC GRAVITY 1.013; UROBILINOGEN,URINE NEGATIVE mg/dL (<2.0)
[2017-12-08] MEDS ORDERED: ALBUTEROL SULFATE HFA (90 MCG/PUFF) 8 GM MDI (1 MDI/ER DISP) IH PRN (23:19)
[2017-12-08 23:40] VITALS: BP 159/89
== END 2017-12-08 23:44 | disposition home or self-care (01) ==
LOC: ER 15:00
DX: R06.02 Shortness of breath (principal); E10.22 Type 1 diabetes mellitus with diabetic chronic kidney disease; I12.9 Hypertensive chronic kidney disease with stage 1 through stage 4 chronic kidney disease, or unspecified chronic kidney disease; N18.3 Chronic kidney disease, stage 3 (moderate); Z87.891 Personal history of nicotine dependence; J44.9 Chronic obstructive pulmonary disease, unspecified; E78.00 Pure hypercholesterolemia, unspecified; Z79.4 Long term (current) use of insulin
CPT/HCPCS: 93005; 94640; 99285; 36415; 82553; 82803; 82550; 85025; 80053; 81001; 84484; 83880; 71045; 78582; 93010; A9540; A9567; J3490 ×2; J7620; Q9969

== ENCOUNTER → 2017-12-08 | Outpatient (CLI) | payer MEDICAID ==
--- NOTE | 2017-12-08 09:56 | RADIOLOGY REPORT (SQ) ---
EXAM DESCRIPTION: CHEST 2 VIEWS COMPLETED DATE/TIME: 12/08/2017 9:42 am REASON FOR STUDY: OTHER FORMS OF DYSPNEA COMPARISON: 11/29/2017 EXAM PARAMETERS: NUMBER OF VIEWS: two views TECHNIQUE: Digital Frontal and Lateral radiographic views of the chest acquired. RADIATION DOSE: NA LIMITATIONS: none FINDINGS: LUNGS AND PLEURA: Small left pleural effusion remains. Right pleural effusion is signific antly smaller in size. No consolidation. No pneumothorax. MEDIASTINUM AND HILAR STRUCTURES: No masses or contour abnormalities. HEART AND VASCULAR STRUCTURES: Heart normal size. No evidence for failure. BONES: No acute findings. HARDWARE: None in the chest. OTHER: No other significant finding. IMPRESSION: Small residual left pleural effusion remains. No other significant findings. TECHNICAL DOCUMENTATION: JOB ID: [id number] [employer]- All Rights Reserved Reading location - IP/workstation name: [email or web address]
[2017-12-08 10:12] LABS: ABSOLUTE EOSINOPHILS # (AUTO) 0.1 10^3/uL (0.0-0.6); ABSOLUTE LYMPHOCYTES (AUTO) 1.1 10^3/uL (0.5-4.7); ABSOLUTE NEUT (AUTO) 8.4 10^3/uL (1.7-8.2); BASOPHILS % (AUTO) 0.3 % (0-2); EOSINOPHILS % (AUTO) 0.7 % (0-6); HEMATOCRIT 25.8 % (37.9-51.0); HEMOGLOBIN 8.8 g/dL (13.5-17.0); LYMPHOCYTES % (AUTO) 10.8 % (13-45); MEAN CORPUSCULAR HEMOGLOBIN 30.2 pg (27.0-33.4); MEAN CORPUSCULAR HGB CONC 34.1 g/dL (32.0-36.0); MEAN CORPUSCULAR VOLUME 89 fl (80-97); MONOCYTES % (AUTO) 9.4 % (3-13); PLATELET COUNT 375 10^3/uL (150-450); RED BLOOD COUNT 2.91 10^6/uL (4.35-5.55); SEGMENTED NEUTROPHILS % (AUTO) 78.8 % (42-78); TOTAL CELLS COUNTED % (AUTO) 100 %; WHITE BLOOD COUNT 10.7 10^3/uL (4.0-10.5)
[2017-12-08 10:50] LABS: ALANINE AMINOTRANSFERASE 26 U/L (21-72); ALBUMIN 3.9 g/dL (3.5-5.0); ALKALINE PHOSPHATASE 45 U/L (38-126); ANION GAP 14 (5-19); ASPARTATE AMINO TRANSFERASE 14 U/L (17-59); BILIRUBIN,DIRECT 0.4 mg/dL (0.0-0.4); BILIRUBIN,TOTAL 0.5 mg/dL (0.2-1.3); BLOOD UREA NITROGEN 47 mg/dL (7-20); CALCIUM 8.8 mg/dL (8.4-10.2); CARBON DIOXIDE 19 mmol/L (22-30); CHLORIDE 116 mmol/L (98-107); GLUCOSE 70 mg/dL (75-110); POTASSIUM 4.3 mmol/L (3.6-5.0); SODIUM 149.4 mmol/L (137-145); TOTAL PROTEIN 8.2 g/dL (6.3-8.2)
== END ==
LOC: RAD 09:24
PROVIDERS: ATTEND Family Medicine
DX: J90 Pleural effusion, not elsewhere classified (principal); R06.09 Other forms of dyspnea
CPT/HCPCS: 36415; 71046; 80053; 83880; 84443; 85025

== ENCOUNTER → 2017-12-15 | Outpatient (CLI) | payer MEDICAID ==
[2017-12-15 10:45] LABS: ANION GAP 12 (5-19); BLOOD UREA NITROGEN 41 mg/dL (7-20); CALCIUM 9.4 mg/dL (8.4-10.2); CARBON DIOXIDE 19 mmol/L (22-30); CHLORIDE 113 mmol/L (98-107); GLUCOSE 62 mg/dL (75-110); POTASSIUM 4.3 mmol/L (3.6-5.0); SODIUM 143.9 mmol/L (137-145)
== END ==
LOC: LAB 10:02
PROVIDERS: ATTEND Family Medicine
DX: N18.5 Chronic kidney disease, stage 5 (principal)
CPT/HCPCS: 36415; 80048

== ENCOUNTER → 2018-01-03 | Outpatient (CLI) | payer MEDICAID ==
[2018-01-04 09:54] LABS: IRON(TIBC) 52.2 ug/dL (49-181)
== END ==
LOC: OD 10:02
PROVIDERS: ATTEND Physician Assistant Medical
DX: I12.9 Hypertensive chronic kidney disease with stage 1 through stage 4 chronic kidney disease, or unspecified chronic kidney disease (principal); E11.22 Type 2 diabetes mellitus with diabetic chronic kidney disease; N18.4 Chronic kidney disease, stage 4 (severe); D64.9 Anemia, unspecified
CPT/HCPCS: 36415; 82728; 83540; 83550

== ENCOUNTER → 2018-03-23 | Outpatient (CLI) | payer MEDICARE, MEDICAID ==
[2018-03-23 12:17] LABS: HEMATOCRIT 31.5 % (37.9-51.0); HEMOGLOBIN 10.7 g/dL (13.5-17.0); MEAN CORPUSCULAR HEMOGLOBIN 28.6 pg (27.0-33.4); MEAN CORPUSCULAR HGB CONC 33.9 g/dL (32.0-36.0); MEAN CORPUSCULAR VOLUME 84 fl (80-97); PLATELET COUNT 331 10^3/uL (150-450); RED BLOOD COUNT 3.74 10^6/uL (4.35-5.55); RED CELL DISTRIBUTION WIDTH 15.5 % (11.5-14.0); WHITE BLOOD COUNT 7.1 10^3/uL (4.0-10.5)
[2018-03-23 12:28] LABS: APPEARANCE,URINE CLEAR; BILIRUBIN,URINE NEGATIVE (NEGATIVE); COLOR,URINE YELLOW; GLUCOSE, URINE NEGATIVE (NEGATIVE); KETONES,URINE NEGATIVE (NEGATIVE); LEUKOCYTE ESTERASE,URINE NEGATIVE (NEGATIVE); NITRITE,URINE NEGATIVE (NEGATIVE); PROTEIN,URINE >=500 mg/dL (NEGATIVE); URINE SPECIFIC GRAVITY 1.016; UROBILINOGEN,URINE NEGATIVE mg/dL (<2.0)
[2018-03-23 12:39] LABS: ANION GAP 9 (5-19); BLOOD UREA NITROGEN 37 mg/dL (7-20); CALCIUM 9.4 mg/dL (8.4-10.2); CARBON DIOXIDE 28 mmol/L (22-30); CHLORIDE 108 mmol/L (98-107); GLUCOSE 75 mg/dL (75-110); PHOSPHORUS 3.9 mg/dL (2.5-4.5); POTASSIUM 4.3 mmol/L (3.6-5.0); SODIUM 145.1 mmol/L (137-145)
== END ==
LOC: LAB 11:40
PROVIDERS: ATTEND Physician Assistant Medical
DX: I12.9 Hypertensive chronic kidney disease with stage 1 through stage 4 chronic kidney disease, or unspecified chronic kidney disease (principal); E11.22 Type 2 diabetes mellitus with diabetic chronic kidney disease; N18.4 Chronic kidney disease, stage 4 (severe); R80.9 Proteinuria, unspecified; D64.9 Anemia, unspecified
CPT/HCPCS: 36415; 80048; 81001; 83970; 84100; 85027

== ENCOUNTER → 2018-06-06 | Outpatient (CLI) | payer MEDICARE, MEDICAID ==
[2018-06-07 12:16] LABS: IRON(TIBC) 60.8 ug/dL (49-181)
== END ==
LOC: LAB 10:40
PROVIDERS: ATTEND Internal Medicine Nephrology
DX: D64.9 Anemia, unspecified (principal); N18.4 Chronic kidney disease, stage 4 (severe)
CPT/HCPCS: 36415; 82728; 83540; 83550

== ENCOUNTER → 2018-07-11 | Outpatient (CLI) | payer MEDICARE, MEDICAID ==
[2018-07-11 10:59] LABS: ANION GAP 11 (5-19); BLOOD UREA NITROGEN 40 mg/dL (7-20); CALCIUM 9.1 mg/dL (8.4-10.2); CARBON DIOXIDE 21 mmol/L (22-30); CHLORIDE 111 mmol/L (98-107); GLUCOSE 69 mg/dL (75-110); POTASSIUM 4.3 mmol/L (3.6-5.0); SODIUM 142.5 mmol/L (137-145)
[2018-07-12 14:38] LABS: CREATININE URINE 104.2 mg/dL (Not Estab.)
[2018-07-12 14:55] LABS: MICROALBUMIN URINE 2047.2 ug/mL (Not Estab.)
== END ==
LOC: LAB 10:07
PROVIDERS: ATTEND Family Medicine
DX: E11.22 Type 2 diabetes mellitus with diabetic chronic kidney disease (principal); N18.9 Chronic kidney disease, unspecified
CPT/HCPCS: 36415; 80048; 82043; 82570; 83036

== ENCOUNTER → 2018-11-24 | Outpatient (CLI) | payer MEDICARE, MEDICAID ==
[2018-11-24 11:29] LABS: ANION GAP 12 (5-19); BLOOD UREA NITROGEN 50 mg/dL (7-20); CALCIUM 9.5 mg/dL (8.4-10.2); CARBON DIOXIDE 22 mmol/L (22-30); CHLORIDE 108 mmol/L (98-107); GLUCOSE 152 mg/dL (75-110); PHOSPHORUS 4.4 mg/dL (2.5-4.5); POTASSIUM 4.6 mmol/L (3.6-5.0)
== END ==
LOC: LAB 10:38
PROVIDERS: ATTEND Physician Assistant Medical
DX: E11.22 Type 2 diabetes mellitus with diabetic chronic kidney disease (principal); I12.9 Hypertensive chronic kidney disease with stage 1 through stage 4 chronic kidney disease, or unspecified chronic kidney disease; N18.4 Chronic kidney disease, stage 4 (severe); D63.1 Anemia in chronic kidney disease; N25.0 Renal osteodystrophy; R60.9 Edema, unspecified
CPT/HCPCS: 36415; 80048; 83970; 84100

== ENCOUNTER → 2018-11-25 | Outpatient (CLI) | payer MEDICARE, MEDICAID ==
[2018-11-25 11:39] LABS: IRON(TIBC) 53.2 ug/dL (49-181)
== END ==
LOC: OD 10:22
PROVIDERS: ATTEND Physician Assistant Medical
DX: N18.9 Chronic kidney disease, unspecified (principal); D63.1 Anemia in chronic kidney disease
CPT/HCPCS: 36415; 82728; 83540; 83550; 84466

== ENCOUNTER → 2018-12-22 | Outpatient (CLI) | payer MEDICARE, MEDICAID ==
[2018-12-22 12:48] LABS: ANION GAP 14 (5-19); BLOOD UREA NITROGEN 50 mg/dL (7-20); CALCIUM 9.6 mg/dL (8.4-10.2); CARBON DIOXIDE 19 mmol/L (22-30); CHLORIDE 108 mmol/L (98-107); GLUCOSE 91 mg/dL (75-110); POTASSIUM 4.2 mmol/L (3.6-5.0)
== END ==
LOC: LAB 11:56
PROVIDERS: ATTEND Physician Assistant Medical
DX: I12.9 Hypertensive chronic kidney disease with stage 1 through stage 4 chronic kidney disease, or unspecified chronic kidney disease (principal); N18.4 Chronic kidney disease, stage 4 (severe); E11.22 Type 2 diabetes mellitus with diabetic chronic kidney disease; R80.9 Proteinuria, unspecified; N25.0 Renal osteodystrophy; D64.9 Anemia, unspecified
CPT/HCPCS: 36415; 80048

== ENCOUNTER → 2019-02-16 | Outpatient (CLI) | payer MEDICARE, MEDICAID ==
[2019-02-16 12:40] LABS: ABSOLUTE EOSINOPHILS # (AUTO) 0.1 10^3/uL (0.0-0.6); ABSOLUTE LYMPHOCYTES (AUTO) 1.3 10^3/uL (0.5-4.7); ABSOLUTE MONOCYTES (AUTO) 0.4 10^3/uL (0.1-1.4); ABSOLUTE NEUT (AUTO) 5.1 10^3/uL (1.7-8.2); BASOPHILS % (AUTO) 0.5 % (0-2); EOSINOPHILS % (AUTO) 0.8 % (0-6); HEMATOCRIT 25.5 % (37.9-51.0); HEMOGLOBIN 8.7 g/dL (13.5-17.0); LYMPHOCYTES % (AUTO) 19.3 % (13-45); MEAN CORPUSCULAR HEMOGLOBIN 31.1 pg (27.0-33.4); MEAN CORPUSCULAR HGB CONC 34.3 g/dL (32.0-36.0); MEAN CORPUSCULAR VOLUME 91 fl (80-97); MONOCYTES % (AUTO) 5.7 % (3-13); PLATELET COUNT 346 10^3/uL (150-450); RED BLOOD COUNT 2.81 10^6/uL (4.35-5.55); RED CELL DISTRIBUTION WIDTH 16.5 % (11.5-14.0); SEGMENTED NEUTROPHILS % (AUTO) 73.7 % (42-78); TOTAL CELLS COUNTED % (AUTO) 100 %; WHITE BLOOD COUNT 6.9 10^3/uL (4.0-10.5)
[2019-02-16 13:02] LABS: ANION GAP 13 (5-19); BLOOD UREA NITROGEN 38 mg/dL (7-20); CALCIUM 9.4 mg/dL (8.4-10.2); CARBON DIOXIDE 22 mmol/L (22-30); CHLORIDE 110 mmol/L (98-107); GLUCOSE 76 mg/dL (75-110); PHOSPHORUS 3.6 mg/dL (2.5-4.5); POTASSIUM 3.8 mmol/L (3.6-5.0)
[2019-02-16 13:16] LABS: URINE CREATININE 138.8 mg/dL (22-328)
[2019-02-16 14:30] LABS: UR PRO/CREAT RATIO RESULT 4.2 mg/mg (0.0-0.2); URINE PROTEIN 580.3 mg/dL (<12)
[2019-02-16 15:47] LABS: IRON(TIBC) 58.6 ug/dL (49-181)
== END ==
LOC: LAB 12:10
PROVIDERS: ATTEND Physician Assistant Medical
DX: I12.0 Hypertensive chronic kidney disease with stage 5 chronic kidney disease or end stage renal disease (principal); N18.5 Chronic kidney disease, stage 5; E11.22 Type 2 diabetes mellitus with diabetic chronic kidney disease; N25.0 Renal osteodystrophy; E87.2 Acidosis
CPT/HCPCS: 36415; 80048; 82570; 82728; 83540; 83550; 83970; 84100; 84156; 84443; 85025; 87086

== ENCOUNTER 2019-03-20 10:29 | Emergency (ER) | payer MEDICARE, MEDICAID ==
--- NOTE | 2019-03-20 11:35 | ER Document Report ---
ED Medical Screen (RME) - General Chief Complaint: Breathing Difficulty Stated Complaint: DIFFICULTY BREATHING Time Seen by Provider: 03/20/19 11:29 Primary Care Provider: KINGSLEY KENNY PA-C [Primary Care Provider] - Follow up as needed Mode of Arrival: Ambulatory Information source: Patient Notes: 63-year-old male presented to ED for complaint of right chest pain shortness of breath to the point that he cannot walk across the room without getting very short of breath and fatigue, intermittent diarrhea and constipation, and states his stomach gets very tight and has poor appetite. He states is not all been going on intermittently for a month and getting worse. He states he went to his primary doctor 2 weeks ago and they sent him to the emergency room. He states he did not come to the emergency room at that time but is getting worse so now he is coming to the emergency room. I have updated his medical history in the chart. Lung sounds are clear to auscultation. I have greeted and performed a rapid initial assessment of this patient. A comprehensive ED assessment and evaluation of the patient, analysis of test results and completion of medical decision making process will be conducted by an additional ED providers. TRAVEL OUTSIDE OF THE [place] IN LAST 30 DAYS: No - Related Data Allergies/Adverse Reactions: No Known Allergies Allergy (Verified 09/14/15 08:13) Past Medical History - Social History Cigarette use (# per day): No - former Frequency of alcohol use: None Drug Abuse: None Lives with: Alone - Past Medical History Cardiac Medical History: Reports: Hx Hypercholesterolemia, Hx Hypertension Pulmonary Medical History: Reports: Hx Asthma Endocrine Medical History: Reports: Hx Diabetes Mellitus Type 2 - TAKES INSULIN Renal/ Medical History: Reports: Hx Renal Insufficiency - Immunizations Immunizations up to date: Yes Doctor's Discharge - Discharge Referrals: KINGSLEY KENNY PA-C [Primary Care Provider] - Follow up as needed
--- NOTE | 2019-03-20 12:34 | RADIOLOGY REPORT (SQ) ---
EXAM DESCRIPTION: CHEST 2 VIEWS COMPLETED DATE/TIME: 03/20/2019 12:21 pm REASON FOR STUDY: short of breath right chest pain COMPARISON: 12/08/2017 EXAM PARAMETERS: NUMBER OF VIEWS: two views TECHNIQUE: Digital Frontal and Lateral radiographic views of the chest acquired. RADIATION DOSE: NA LIMITATIONS: none FINDINGS: LUNGS AND PLEURA: No opacities, masses or pneumothorax. No pleural effusion. MEDIASTINUM AND HILAR STRUCTURES: No masses or contour abnormalities. HEART AND VASCULAR STRUCTURES: Mild cardiomegaly. No evidence for failure. BONES: No acute findings. HARDWARE: None in the chest. OTHER: No other significant finding. IMPRESSION: NO ACUTE RADIOGRAPHIC FINDING IN THE CHEST. TECHNICAL DOCUMENTATION: JOB ID: [id number] [employer]- All Rights Reserved Reading location - IP/workstation name: [email or web address]
[2019-03-20 13:22] LABS: ABSOLUTE MONOCYTES (AUTO) 0.6 10^3/uL (0.1-1.4); ABSOLUTE NEUT (AUTO) 5.6 10^3/uL (1.7-8.2); BASOPHILS % (AUTO) 0.4 % (0-2); EOSINOPHILS % (AUTO) 0.5 % (0-6); HEMATOCRIT 29.6 % (37.9-51.0); HEMOGLOBIN 9.6 g/dL (13.5-17.0); LYMPHOCYTES % (AUTO) 13.7 % (13-45); MEAN CORPUSCULAR HEMOGLOBIN 30.1 pg (27.0-33.4); MEAN CORPUSCULAR HGB CONC 32.3 g/dL (32.0-36.0); MEAN CORPUSCULAR VOLUME 93 fl (80-97); MONOCYTES % (AUTO) 8.4 % (3-13); PLATELET COUNT 379 10^3/uL (150-450); RED BLOOD COUNT 3.19 10^6/uL (4.35-5.55); TOTAL CELLS COUNTED % (AUTO) 100 %; WHITE BLOOD COUNT 7.3 10^3/uL (4.0-10.5)
[2019-03-20 13:46] LABS: ALKALINE PHOSPHATASE 43 U/L (38-126); ANION GAP 12 (5-19); ASPARTATE AMINO TRANSFERASE 37 U/L (17-59); BILIRUBIN,DIRECT 0.4 mg/dL (0.0-0.4); BILIRUBIN,TOTAL 0.9 mg/dL (0.2-1.3); BLOOD UREA NITROGEN 53 mg/dL (7-20); CALCIUM 9.3 mg/dL (8.4-10.2); CARBON DIOXIDE 24 mmol/L (22-30); CHLORIDE 109 mmol/L (98-107); GLUCOSE 78 mg/dL (75-110); POTASSIUM 4.8 mmol/L (3.6-5.0); TOTAL PROTEIN 8.5 g/dL (6.3-8.2)
[2019-03-20 13:59] LABS: TROPONIN I 0.029 ng/mL
--- NOTE | 2019-03-20 18:29 | EKG REPORT ---
SEVERITY:- ABNORMAL ECG - SINUS RHYTHM with PVC. LEFT ATRIAL ABNORMALITY NONSPECIFIC T ABNORMALITIES, LATERAL LEADS : Confirmed by: Pradeep Navarrete MD 20-Mar-2019 18:28:48
--- NOTE | 2019-03-20 20:03 | RADIOLOGY REPORT (SQ) ---
EXAM DESCRIPTION: U/S RETROPERITON LTD COMPLETED DATE/TIME: 03/20/2019 7:41 pm REASON FOR STUDY: dopplers to assess flow/ htn sob COMPARISON: 09/22/2016 TECHNIQUE: Dynamic and static grayscale images acquired of the kidneys and bladder and recorded on P ACS. Additional selected color Doppler and spectral images recorded. LIMITATIONS: None. FINDINGS: RIGHT KIDNEY: Normal size. Mildly increased cortical echogenicity. No solid or suspicious masses. 2.1 cm lower pole cyst. No hydronephrosis. No calcifications. LEFT KIDNEY: Normal size. Mildly increased cortical echogenicity. No solid or suspicious masses. No hydronephrosis. No calcifications. BLADDER: No masses. OTHER: No other significant finding. IMPRESSION: NO HYDRONEPHROSIS. Stable exam. TECHNICAL DOCUMENTATION: JOB ID: [id number] 2010 [employer]- All Rights Reserved Reading location - IP/workstation name: [email or web address]
[2019-03-20] MEDS ORDERED: FUROSEMIDE INJ/PF 40 MG/4 ML SDV IV ONE (20:12)
--- NOTE | 2019-03-20 20:32 | ER Document Report ---
ED General - General Chief Complaint: Shortness Of Breath Stated Complaint: DIFFICULTY BREATHING Time Seen by Provider: 03/20/19 11:29 Primary Care Provider: KINGSLEY KENNY PA-C [ALLIED HEALTH PROFESSIONAL] - Follow up as needed Mode of Arrival: Ambulatory Information source: Patient TRAVEL OUTSIDE OF THE [place] IN LAST 30 DAYS: No - HPI Notes: Patient arrives with a complaint of shortness of breath. He states he has had this for a month that has progressively been getting worse. He states it is worse with exertion and better with rest. It is mild to moderate in intensity. It is intermittent. He denies any chest pain. He states that his abdomen has felt distended and bloated. He states he had no lower extremity swelling however. He denies any previous history of DVTs or PEs. He states he said no cough cold or congestion. He states he just saw his employment attorney 4 days ago. There is no known radiation of symptoms. Patient has not been lightheaded or dizzy. - Related Data Allergies/Adverse Reactions: No Known Allergies Allergy (Verified 09/14/15 08:13) Past Medical History - General Information source: Patient - Social History Smoking Status: Former Smoker Cigarette use (# per day): No - former Frequency of alcohol use: None Drug Abuse: None Lives with: Alone Family History: Reviewed & Not Pertinent, Hypertension. denies: CAD, CVA Patient has suicidal ideation: No Patient has homicidal ideation: No - Past Medical History Cardiac Medical History: Reports: Hx Hypercholesterolemia, Hx Hypertension Pulmonary Medical History: Reports: Hx Asthma Endocrine Medical History: Reports: Hx Diabetes Mellitus Type 2 - TAKES INSULIN Renal/ Medical History: Reports: Hx Renal Insufficiency - Immunizations Immunizations up to date: Yes Review of Systems - Review of Systems Constitutional: denies: Chills, Fever Cardiovascular: denies: Chest pain, Palpitations Respiratory: Short of breath. denies: Cough -: Yes All other systems reviewed and negative Physical Exam - Vital signs Vitals: Temp Pulse Resp BP Pulse Ox 98.2 F 72 16 177/81 H 98 03/20/19 11:31 03/20/19 11:31 03/20/19 11:31 03/20/19 11:31 03/20/19 11:31 Interpretation: Hypertensive - General General appearance: Appears well, Alert In distress: None - HEENT Head: Normocephalic, Atraumatic Eyes: Normal Pupils: PERRL - Respiratory Respiratory status: No respiratory distress Chest status: Nontender Breath sounds: Decreased air movement - Bilateral Chest palpation: Normal - Cardiovascular Rhythm: Regular Heart sounds: Normal auscultation Murmur: No - Abdominal Inspection: Normal Distension: Distended Bowel sounds: Normal Tenderness: Nontender Organomegaly: No organomegaly - Back Back: Normal, Nontender - Extremities General upper extremity: Normal inspection, Nontender, Normal color, Normal ROM, Normal temperature General lower extremity: Normal inspection, Nontender, Normal color, Normal ROM, Normal temperature, Normal weight bearing. No: Sergo's sign - Neurological Neuro grossly intact: Yes Cognition: Normal Orientation: AAOx4 [place] Coma Scale Eye Opening: Spontaneous [place] Coma Scale Verbal: Oriented [place] Coma Scale Motor: Obeys Commands Nikole Coma Scale Total: 15 Speech: Normal Motor strength normal: LUE, RUE, LLE, RLE Sensory: Normal - Psychological Associated symptoms: Normal affect, Normal mood - Skin Skin Temperature: Warm Skin Moisture: Dry Skin Color: Normal Course - Re-evaluation Re-evalutation: 03/20/19 20:28 Patient presents with shortness of breath. No obvious cause can be found. Patient has no evidence of myocardial infarction. Troponins are stable. He is not anemic. His kidney function is also stable. He has no evidence of an infectious process. When he is lying in the bed reclining he states that he feels "normal". Of note he is able to recline almost fully. His saturations are 100% on room air. His lungs are relatively clear other than some mild decreased breath sounds. He is not tachycardic. Patient is most to take a water pill but does not take it. I have called and discussed the case with the patient's employment attorney, Dr. Jade. He asked me to give the patient a dose of IV Lasix and send the patient home on Lasix. He also states that the patient's blood pressure is elevated and he would like me to start the patient on amlodipine 5 mg. He states he will recheck the patient in the office. Patient was advised of these instruction and is in agreement. Patient's BNP is elevated and he has some mild cardiomegaly on x-ray. However there is no evidence of failure on x-ray and there is no peripheral edema. 03/20/19 20:30 - Vital Signs Vital signs: Temp Pulse Resp BP Pulse Ox 97.6 F 72 18 181/82 H 98 03/20/19 17:03 03/20/19 11:31 03/20/19 19:01 03/20/19 19:01 03/20/19 19:01 - Laboratory Result Diagrams: 03/20/19 13:00 03/20/19 13:00 Laboratory results interpreted by me: 03/20/19 03/20/19 03/20/19 13:00 13:00 13:00 RBC 3.19 L Hgb 9.6 L Hct 29.6 L RDW 17.0 H Chloride 109 H BUN 53 H Creatinine 5.78 H Est GFR ( Amer) 12 L Est GFR (MDRD) Non-Af 10 L NT-Pro-B Natriuret Pep 31226 H Total Protein 8.5 H - Diagnostic Test Radiology reviewed: Image reviewed, Reports reviewed - EKG Interpretation by Me EKG shows normal: Sinus rhythm Rate: Normal - 64 Rhythm: NSR [place]asp[place]/QRS: No: Right axis deviation, Left axis deviation Discharge - Discharge Clinical Impression: Dyspnea Qualifiers: Dyspnea type: dyspnea on exertion Qualified Code(s): R06.09 - Other forms of dyspnea Condition: Stable Disposition: HOME, SELF-CARE Instructions: Dyspnea, Nonspecific ([facility]) Additional Instructions: Please call Dr. Jade first thing in the morning to arrange for a recheck Prescriptions: Furosemide [Lasix 20 mg Tablet] 20 mg PO QAM #30 tablet Amlodipine Besylate [Norvasc 5 mg Tablet] 5 mg PO DAILY #30 tablet Referrals: CARMEN ELMORE MD [ACTIVE STAFF] - Follow up in 3-5 days Helder JADE MD [ACTIVE STAFF] - Follow up tomorrow
--- NOTE | 2019-03-20 21:09 | ER Document Report ---
Doctor's Note Notes: 03/20/19 21:08 Primary ED provider off shift and nursing staff noted that prescriptions had not been signed. Prescriptions were reprinted by myself and signed and given to nursing staff.
[2019-03-20 21:19] VITALS: BP 175/117
== END 2019-03-20 21:00 | disposition home or self-care (01) ==
LOC: ER 10:29
DX: J45.909 Unspecified asthma, uncomplicated (principal); R06.09 Other forms of dyspnea; R06.02 Shortness of breath; R14.0 Abdominal distension (gaseous); E11.9 Type 2 diabetes mellitus without complications; I11.9 Hypertensive heart disease without heart failure; Z87.891 Personal history of nicotine dependence
CPT/HCPCS: 93005; 99285; 96374; 36415; 83735; 85025; 80053; 84484; 83880; 71046; 76775; 93010; J1940; C1751

== ENCOUNTER → 2019-06-28 | Outpatient (CLI) | payer MEDICARE, MEDICAID ==
[2019-06-28 09:59] LABS: ABSOLUTE LYMPHOCYTES (AUTO) 0.5 10^3/uL (0.5-4.7); ABSOLUTE MONOCYTES (AUTO) 0.4 10^3/uL (0.1-1.4); ABSOLUTE NEUT (AUTO) 4.3 10^3/uL (1.7-8.2); BASOPHILS % (AUTO) 0.4 % (0-2); EOSINOPHILS % (AUTO) 0.8 % (0-6); HEMATOCRIT 27.1 % (37.9-51.0); LYMPHOCYTES % (AUTO) 8.7 % (13-45); MEAN CORPUSCULAR HEMOGLOBIN 28.9 pg (27.0-33.4); MEAN CORPUSCULAR HGB CONC 33.3 g/dL (32.0-36.0); MEAN CORPUSCULAR VOLUME 87 fl (80-97); MONOCYTES % (AUTO) 7.9 % (3-13); RED BLOOD COUNT 3.12 10^6/uL (4.35-5.55); SEGMENTED NEUTROPHILS % (AUTO) 82.2 % (42-78); TOTAL CELLS COUNTED % (AUTO) 100 %; WHITE BLOOD COUNT 5.2 10^3/uL (4.0-10.5)
[2019-06-28 10:03] LABS: APPEARANCE,URINE CLEAR; BILIRUBIN,URINE NEGATIVE (NEGATIVE); COLOR,URINE YELLOW; GLUCOSE, URINE NEGATIVE (NEGATIVE); KETONES,URINE NEGATIVE (NEGATIVE); LEUKOCYTE ESTERASE,URINE NEGATIVE (NEGATIVE); NITRITE,URINE NEGATIVE (NEGATIVE); PROTEIN,URINE 100 mg/dL (NEGATIVE); URINE SPECIFIC GRAVITY 1.012; UROBILINOGEN,URINE NEGATIVE mg/dL (<2.0)
[2019-06-28 10:22] LABS: ALBUMIN 4.1 g/dL (3.5-5.0); ANION GAP 12 (5-19); BLOOD UREA NITROGEN 47 mg/dL (7-20); CALCIUM 9.4 mg/dL (8.4-10.2); CARBON DIOXIDE 24 mmol/L (22-30); CHLORIDE 106 mmol/L (98-107); PHOSPHORUS 4.5 mg/dL (2.5-4.5); POTASSIUM 4.9 mmol/L (3.6-5.0)
[2019-06-28 10:27] LABS: GLUCOSE 63 mg/dL (75-110)
[2019-06-28 10:32] LABS: URINE CREATININE 107.3 mg/dL (22-328)
[2019-06-28 10:33] LABS: PLATELET COUNT 339 10^3/uL (150-450)
[2019-06-28 10:49] LABS: URINE PROTEIN 326.2 mg/dL (<12)
== END ==
LOC: OD 09:27
PROVIDERS: ATTEND Physician Assistant Medical
DX: I12.0 Hypertensive chronic kidney disease with stage 5 chronic kidney disease or end stage renal disease (principal); N18.5 Chronic kidney disease, stage 5; E11.22 Type 2 diabetes mellitus with diabetic chronic kidney disease; R80.9 Proteinuria, unspecified; E87.2 Acidosis; D64.9 Anemia, unspecified
CPT/HCPCS: 36415; 80069; 81001; 82570; 83970; 84156; 85025

== ENCOUNTER 2019-09-19 11:45 | Inpatient (IN) | payer MEDICARE, MEDICAID ==
[2019-09-19 12:44] LABS: HEMATOCRIT 29.2 % (37.9-51.0); HEMOGLOBIN 9.4 g/dL (13.5-17.0); MEAN CORPUSCULAR HEMOGLOBIN 27.1 pg (27.0-33.4); MEAN CORPUSCULAR HGB CONC 32.1 g/dL (32.0-36.0); MEAN CORPUSCULAR VOLUME 85 fl (80-97); PLATELET COUNT 405 10^3/uL (150-450); RED BLOOD COUNT 3.45 10^6/uL (4.35-5.55); RED CELL DISTRIBUTION WIDTH 17.5 % (11.5-14.0); WHITE BLOOD COUNT 10.8 10^3/uL (4.0-10.5)
[2019-09-19 12:54] LABS: ALBUMIN 3.7 g/dL (3.5-5.0); ALKALINE PHOSPHATASE 49 U/L (38-126); ANION GAP 9 (5-19); ASPARTATE AMINO TRANSFERASE 20 U/L (17-59); BILIRUBIN,DIRECT 0.3 mg/dL (0.0-0.4); BILIRUBIN,TOTAL 0.8 mg/dL (0.2-1.3); BLOOD UREA NITROGEN 81 mg/dL (7-20); CALCIUM 8.9 mg/dL (8.4-10.2); CARBON DIOXIDE 19 mmol/L (22-30); CHLORIDE 110 mmol/L (98-107); GLUCOSE 129 mg/dL (75-110)
[2019-09-19 13:02] LABS: ABSOLUTE LYMPHOCYTES# (MANUAL) 0.2 10^3/uL (0.5-4.7); ABSOLUTE MONOCYTES # (MANUAL) 0.1 10^3/uL (0.1-1.4); BAND NEUTROPHILS % (MANUAL) 1 % (3-5); BASOPHILS % (MANUAL) 0 % (0-2); EOSINOPHILS % (MANUAL) 0 % (0-6); LYMPHOCYTES % (MANUAL) 2 % (13-45); MONOCYTES % (MANUAL) 1 % (3-13); SEGMENTED NEUTROPHILS % (MAN) 96 % (42-78); TOTAL CELLS COUNTED 100
[2019-09-19 13:04] LABS: ANISOCYTOSIS 1+; BURR CELLS SLIGHT; OVALOCYTES 1+; PLATELET CLUMPS PRESENT; PLATELET COMMENT ADEQUATE; POIKILOCYTOSIS 1+
[2019-09-19] MEDS ORDERED: METRONIDAZOLE 500 MG/NS RTU 500 MG/100 ML RTUPB IV ONE (13:32)
[2019-09-19] MEDS ORDERED: CEFTRIAXONE 2 GM/D5W RTU 2 GM/50 ML RTUPB IV ONE (13:32)
--- NOTE | 2019-09-19 13:32 | RADIOLOGY REPORT (SQ) ---
EXAM DESCRIPTION: CHEST SINGLE VIEW IMAGES COMPLETED DATE/TIME: 09/19/2019 12:54 pm REASON FOR STUDY: Possible aspiration COMPARISON: 03/20/2019 EXAM PARAMETERS: NUMBER OF VIEWS: One view. TECHNIQUE: Single frontal radiographic view of the chest acquired. RADIATION DOSE: NA LIMITATIONS: None. FINDINGS: LUNGS AND PLEURA: Diffuse airspace disease in the left lower lobe. Right hilar density pr obably secondary to technique. MEDIASTINUM AND HILAR STRUCTURES: See above. HEART AND VASCULAR STRUCTURES: Heart normal in size. Normal vasculature. BONES: No acute findings. HARDWARE: None in the chest. OTHER: No other significant finding. IMPRESSION: Left lower lobe pneumonia. TECHNICAL DOCUMENTATION: JOB ID: [id number] 2010 [employer]- All Rights Reserved Reading location - IP/workstation name: [email or web address]
[2019-09-19] MEDS ORDERED: NORMAL SALINE 1000 ML 1,000 ML IV ONE (13:36)
--- NOTE | 2019-09-19 13:46 | ER Document Report ---
ED General - General Chief Complaint: Shortness Of Breath Stated Complaint: DESATURATION DURING PROCEDURE Time Seen by Provider: 09/19/19 12:07 Primary Care Provider: KINGSLEY KENNY PA-C [Primary Care Provider] - Follow up as needed Mode of Arrival: Medic Information source: Patient TRAVEL OUTSIDE OF THE [place] IN LAST 30 DAYS: No - HPI Notes: Patient was transferred from outpatient surgery center. History is that patient was under propofol sedation for colonoscopy when he began to desaturate. The notes state that they tried to intubate him apparently twice and were unsuccessful however they were able to bag the patient. He arrives complaining that he feels short of breath. This is worse with exertion better with rest. He states it is mild to moderate currently but feels better than it did. Patient does have multiple chronic comorbidities. There is been no known vomiting or fevers. However there was some concern the patient may have aspirated. Patient symptoms are currently constant. They are moderate to s evere. Patient denies any current pain. - Related Data Allergies/Adverse Reactions: No Known Allergies Allergy (Verified 09/14/15 08:13) Past Medical History - General Information source: Patient, Transfer Record, Emergency Med Personnel - Social History Smoking Status: Never Smoker Frequency of alcohol use: None Drug Abuse: None Family History: Reviewed & Not Pertinent, Hypertension. denies: CAD, CVA Patient has homicidal ideation: No - Past Medical History Cardiac Medical History: Reports: Hx Hypercholesterolemia, Hx Hypertension Pulmonary Medical History: Reports: Hx Asthma Endocrine Medical History: Reports: Hx Diabetes Mellitus Type 2 - TAKES INSULIN Renal/ Medical History: Reports: Hx Renal Insufficiency - Immunizations Immunizations up to date: Yes Review of Systems - Review of Systems Constitutional: denies: Chills, Fever Cardiovascular: denies: Chest pain, Palpitations Respiratory: Cough, Short of breath -: Yes All other systems reviewed and negative Physical Exam - Vital signs Vitals: Temp Pulse Resp BP Pulse Ox 97.6 F 78 16 169/84 H 93 09/19/19 11:49 09/19/19 11:49 09/19/19 11:49 09/19/19 11:49 09/19/19 11:49 Interpretation: Hypoxic - General General appearance: Alert In distress: Mild - HEENT Head: Normocephalic, Atraumatic Eyes: Normal Pupils: PERRL - Respiratory Respiratory status: Respiratory distress - Mild Chest status: Nontender Breath sounds: Normal Chest palpation: Normal - Cardiovascular Rhythm: Regular Heart sounds: Normal auscultation Murmur: No - Abdominal Inspection: Normal Distension: Distended Bowel sounds: Normal Tenderness: Nontender Organomegaly: No organomegaly - Back Back: Normal, Nontender - Extremities General upper extremity: Normal inspection, Nontender, Normal color, Normal ROM, Normal temperature General lower extremity: Normal inspection, Nontender, Edema - 2+ bilaterally, Normal color, Normal temperature. No: Sergo's sign - Neurological Neuro grossly intact: Yes Cognition: Normal Orientation: AAOx4 [place] Coma Scale Eye Opening: Spontaneous [place] Coma Scale Verbal: Oriented [place] Coma Scale Motor: Obeys Commands [place] Coma Scale Total: 15 Speech: Normal Motor strength normal: LUE, RUE, LLE, RLE Sensory: Normal - Psychological Associated symptoms: Normal affect, Normal mood - Skin Skin Temperature: Warm Skin Moisture: Dry Skin Color: Normal Course - Re-evaluation Re-evalutation: 09/19/19 13:41 Patient arrived after desaturation at outpatient surgery center. He was apparently a difficult intubation as this was attempted twice without success. He was able to be bagged back up to a relatively normal saturation. He does arrive hypoxic on room air and been placed on 4 L. Over the course of about 2 hours in the emergency department he has become hypoxic on the 4 L. He has been placed on BiPAP. He is doing better on BiPAP. Chest x-ray shows a left lower lobe pneumonia possibly consistent with aspiration pneumonia. Therefore patient has been covered with Rocephin and Flagyl. Patient's creatinine is elevated but this is slightly more than his chronic elevation. - Vital Signs Vital signs: Temp Pulse Resp BP Pulse Ox 97.6 F 78 85 H 174/92 H 94 09/19/19 11:49 09/19/19 11:49 09/19/19 13:28 09/19/19 13:01 09/19/19 12:03 - Laboratory Result Diagrams: 09/19/19 12:19 09/19/19 12:19 Laboratory results interpreted by me: 09/19/19 09/19/19 09/19/19 12:19 12:19 12:19 WBC 10.8 H RBC 3.45 L Hgb 9.4 L Hct 29.2 L RDW 17.5 H Seg Neuts % (Manual) 96 H Band Neutrophils % 1 L Lymphocytes % (Manual) 2 L Monocytes % (Manual) 1 L Abs Neuts (Manual) 10.5 H Abs Lymphs (Manual) 0.2 L Chloride 110 H Carbon Dioxide 19 L BUN 81 H Creatinine 7.37 H Est GFR ( Amer) 9 L Est GFR (MDRD) Non-Af 7 L Glucose 129 H NT-Pro-B Natriuret Pep 80013 H - Diagnostic Test Radiology reviewed: Image reviewed, Reports reviewed - EKG Interpretation by Me EKG shows normal: Sinus rhythm Rate: Normal - 77 Rhythm: NSR [place]/QRS: No: Right axis deviation, Left axis deviation Critical Care Note - Critical Care Note Total time excluding time spent on procedures (mins): 40 Comments: Approximately 40 minutes of critical care time were spent on this patient with hypoxic pneumonia. This time was spent doing multiple reassessments. He was spent reviewing old records. It was spent reviewing imaging and laboratory data. It was spent talking with multiple consultants. Discharge - Discharge Clinical Impression: Hypoxia, Overweight Aspiration pneumonia Qualifiers: Aspiration pneumonia type: due to gastric secretions Laterality: left Lung location: lower lobe of lung Qualified Code(s): J69.0 - Pneumonitis due to in halation of food and vomit Chronic renal insufficiency Qualifiers: Chronic kidney disease stage: stage 4 (severe) Qualified Code(s): N18.4 - Chronic kidney disease, stage 4 (severe) Condition: Stable Disposition: ADMITTED INPATIENT Admitting Provider: Elena (Hospitalist) - edgardo to admit Unit Admitted: IMCU Referrals: KINGSLEY KENNY PA-C [Primary Care Provider] - Follow up as needed
[2019-09-19] MEDS ORDERED: HYDRALAZINE HCL INJ/PF 20 MG/1 ML SDV IV PRN (14:35)
[2019-09-19] MEDS ORDERED: GLUCAGON,HUMAN RECOMB 1 MG INJ IM PRN (14:35)
[2019-09-19] MEDS ORDERED: DEXTROSE 40% GEL 15 GM TUBE PO PRN ×2 (14:35)
[2019-09-19] MEDS ORDERED: DEXTROSE 50%-WATER 25 GM/50 ML DISP.SYRIN IV PRN ×2 (14:35)
[2019-09-19] MEDS ORDERED: PROMETHAZINE HCL INJ 25 MG/1 ML VIAL IV PRN (14:36)
[2019-09-19] MEDS ORDERED: MAG HYDROX/AL HYDROX/SIMETH SUSP 30 ML UDCUP PO PRN (14:36)
[2019-09-19] MEDS ORDERED: ACETAMINOPHEN 325 MG TABLET PO PRN (14:36)
[2019-09-19] MEDS ORDERED: ONDANSETRON HCL INJ/PF 4 MG/2 ML SDV IV PRN (14:36)
[2019-09-19] MEDS ORDERED: IPRATROPIUM/ALBUTEROL 0.5-2.5 MG/3 ML AMPUL NEB PRN (14:36)
[2019-09-19] MEDS ORDERED: ALBUTEROL SULFATE 0.083% NEB 2.5 MG/3 ML AMPUL NEB PRN (14:36)
[2019-09-19] MEDS ORDERED: FUROSEMIDE INJ/PF 20 MG/2 ML SDV IV ONE (15:21)
--- NOTE | 2019-09-19 16:14 | PDOC H&P ---
History of Present Illness Admission Date/PCP: 09/19/19 13:58 KINGSLEY KENNY PA-C Patient complains of: dyspnea History of Present Illness: ESTUARDO HULL is a 64 year old male with a past medical history of CKD 4 (followed by Dr. Jade), hypertension, chronic respiratory failure (Home O2 @ 2lpm) diabetes, hyperlipidemia, sleep apnea, and obesity (home CPAP) who presented to the emergency department today via EMS from the [facility] where he was undergoing a colonoscopy had a desaturation event into the 70s requiring airway support with BVM. Two separate attempts were made to intubate the patient but were unsuccessful. Per surgical clinic staff, there was high suspicion for aspiration event. Fortunately, the patient's mentation improved; he became alert and was able to maintain his own airway, though with continued hypoxia. Evaluation in the emergency department revealed hypertension (182/84) tachypnea (RR 28), hypoxia on room air, leukocytosis (WBC is 10.8) baseline anemia (hemoglobin 9.4), HSI/CKD (Cr 7.37/BUN 81), and chest x-ray showing left lower lobe pneumonia. He was placed on BiPAP and provided IV Rocephin and metronidazole. He is referred to the hospitalist service for admission and management of the above-stated complaints and findings. Past Medical History Cardiac Medical History: Reports: Hyperlipidema, Hypertension Denies: Myocardial Infarction Pulmonary Medical History: Reports: Asthma EENT Medical History: Reports: None Neurological Medical History: Reports: None Endocrine Medical History: Reports: Diabetes Mellitus Type 2 - IDDM, Obesity Denies: Hypothyroidism Renal/ Medical History: Reports: Chronic Kidney Disease Malignancy Medical History: Reports: None GI Medical History: Reports: Gastroesophageal Reflux Disease Musculoskeltal Medical History: Reports: None Skin Medical History: Reports: None Traumatic Medical History: Reports: None Hematology: Reports: Anemia Infectious Medical History: Reports: None Social History Information Source: Patient Lives with: Family Smoking Status: Never Smoker Frequency of Alcohol Use: Occasional Hx Recreational Drug Use: No Drugs: None Hx Prescription Drug Abuse: No - Advance Directive Resuscitation Status: Do Not Intubate Family History Family History: Reviewed & Not Pertinent, Hypertension. denies: CAD, CVA Parental Family History Reviewed: Yes Children Family History Reviewed: Yes Sibling(s) Family History Reviewed.: Yes Medication/Allergy Home Medications: Hum Insulin NPH/Reg Insulin Hm [Insulin 70-30 (NPH/Reg) 100 unit/mL] 10 unit SUBCUT QPM 10/28/15 Hum Insulin NPH/Reg Insulin Hm [Insulin 70-30 (NPH/Reg) 100 unit/mL] 15 unit SUBCUT QAM 10/28/15 Aspirin [Aspirin 81 mg Chewable Tablet] 81 mg PO DAILY #30 tab.chew 10/31/15 Atorvastatin Calcium [Lipitor 20 mg Tablet] 20 mg PO QHS #30 tablet 10/31/15 Hydralazine HCl 50 mg PO Q8 #90 tablet 10/31/15 Metoprolol Succinate [Toprol Xl 50 mg Tab.sr] 100 mg PO BID #60 tab.sr.24h 10/31/15 Nifedipine [Procardia XL 30 mg Tablet] 90 mg PO DAILY #30 tab.er.24 10/31/15 Albuterol Sulfate [Albuterol Sulfate 2.5mg/3 mL] 1 vial IH Q4 PRN #10 vial 12/08/17 Nebulizer [Nebulizer Machine] 1 each ASDIR PRN #1 kit 12/08/17 Amlodipine Besylate [Norvasc 5 mg Tablet] 5 mg PO DAILY #30 tablet 03/20/19 Amlodipine Besylate [Norvasc 5 mg Tablet] 5 mg PO DAILY #30 tablet 03/20/19 Furosemide [Lasix 20 mg Tablet] 20 mg PO QAM #30 tablet 03/20/19 Furosemide [Lasix 20 mg Tablet] 20 mg PO QAM #30 tablet 03/20/19 Allergies/Adverse Reactions: No Known Allergies Allergy (Verified 09/14/15 08:13) Review of Systems Constitutional: ABSENT: chills, fever(s), headache(s), weight gain, weight loss Eyes: ABSENT: visual disturbances Ears: ABSENT: hearing changes Cardiovascular: ABSENT: chest pain, dyspnea on exertion, edema, orthropnea, palpitations Respiratory: PRESENT: cough, dyspnea. ABSENT: hemoptysis Gastrointestinal: PRESENT: bloating, nausea. ABSENT: abdominal pain, constipation, diarrhea, hematemesis, hematochezia, vomiting Genitourinary: ABSENT: dysuria, hematuria Musculoskeletal: ABSENT: joint swelling Integumentary: ABSENT: rash, wounds Neurological: ABSENT: abnormal gait, abnormal speech, confusion, dizziness, focal weakness, syncope Psychiatric: ABSENT: anxiety, depression, homidical ideation, suicidal ideation Endocrine: ABSENT: cold intolerance, heat intolerance, polydipsia, polyuria Hematologic/Lymphatic: ABSENT: easy bleeding, easy bruising Physical Exam Vital Signs: Temp Pulse Resp BP Pulse Ox 97.8 F 78 28 H 173/90 H 94 09/19/19 13:58 09/19/19 11:49 09/19/19 14:01 09/19/19 14:01 09/19/19 14:01 Intake & Output 09/18/19 09/19/19 09/20/19 06:59 06:59 06:59 Intake Total 50 Balance 50 Weight 99.5 kg General appearance: PRESENT: cooperative, mild distress, obese, well-developed, well-nourished Head exam: PRESENT: atraumatic, normocephalic Eye exam: PRESENT: conjunctiva pink, EOMI, PERRLA. ABSENT: scleral icterus Ear exam: PRESENT: normal external ear exam Mouth exam: PRESENT: moist, tongue midline Neck exam: ABSENT: carotid bruit, JVD, lymphadenopathy, thyromegaly Respiratory exam: PRESENT: accessory muscle use, rhonchi - L>R, symmetrical, tachypnea, other - BiPAP. ABSENT: rales, wheezes Cardiovascular exam: PRESENT: RRR. ABSENT: diastolic murmur, rubs, systolic murmur Pulses: PRESENT: normal dorsalis pedis pul Vascular exam: PRESENT: normal capillary refill GI/Abdominal exam: PRESENT: distended, hypoactive bowel sounds, soft. ABSENT: guarding, mass, organolmegaly, rebound, tenderness Rectal exam: PRESENT: deferred Extremities exam: PRESENT: full ROM. ABSENT: calf tenderness, clubbing, pedal edema Neurological exam: PRESENT: alert, awake, oriented to person, oriented to place, oriented to time, oriented to situation, CN II-XII grossly intact. ABSENT: motor sensory deficit Psychiatric exam: PRESENT: appropriate affect, normal mood. ABSENT: homicidal ideation, suicidal ideation Skin exam: PRESENT: dry, intact, warm. ABSENT: cyanosis, rash Results Laboratory Results: 09/19/19 12:19 09/19/19 12:19 09/19/19 09/19/19 12:19 12:19 WBC 10.8 H RBC 3.45 L Hgb 9.4 L Hct 29.2 L MCV 85 MCH 27.1 MCHC 32.1 RDW 17.5 H Plt Count 405 Seg Neutrophils % Not Reportable Sodium 138.1 Potassium 5.0 Chloride 110 H Carbon Dioxide 19 L Anion Gap 9 BUN 81 H Creatinine 7.37 H Est GFR ( Amer) 9 L Glucose 129 H Calcium 8.9 Total Bilirubin 0.8 AST 20 Alkaline Phosphatase 49 Total Protein 8.0 Albumin 3.7 09/19/19 09/19/19 12:19 12:19 Troponin I 0.030 NT-Pro-B Natriuret Pep 44975 H Impressions: Chest X-Ray 09/19/19 12:03 IMPRESSION: Left lower lobe pneumonia. Assessment and Plan - Diagnosis (1) Acute respiratory failure with hypoxia Is this a current diagnosis for this admission?: Yes Plan: Secondary to aspiration pneumonia. Patient is admitted to [facility] on continuous cardiac telemetry. Supplemental oxygen as needed maintain saturations greater than 89%. (Utilizes 2 L/min at home) BiPAP nightly and as needed. Scheduled and as needed nebulizer treatments. Mucinex twice daily. Encourage pulmonary toilet. (2) Aspiration pneumonia Qualifiers: Aspiration pneumonia type: due to gastric secretions Laterality: left Lung location: lower lobe of lung Qualified Code(s): J69.0 - Pneumonitis due to inhalation of food and vomit Is this a current diagnosis for this admission?: Yes Plan: Blood and sputum cultures pending. IV Rocephin and metronidazole. Consider steroid therapy. Aspiration precautions. Remaining management as above. (3) Hypertension Qualifiers: Hypertension type: essential hypertension Qualified Code(s): I10 - Essential (primary) hypertension Is this a current diagnosis for this admission?: Yes Plan: Home medication regiment of amlodipine, metoprolol, clonidine, and hydralazine are continued. IV hydralazine as needed for blood pressure control. Consistent carb/cardiac/prerenal diet. 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 Accu-Cheks before meals and at bedtime with Humalog for sliding scale coverage. Hypoglycemia protocol in place. Registered dietitian and natural resources extension educator consulted. (5) CKD (chronic kidney disease) stage 5, GFR less than 15 ml/min Is this a current diagnosis for this admission?: Yes Plan: Dr. Jade is consulted. Continue home dose calcitriol. Avoid nephrotoxic medications; renally dose as able. Follow-up chemistry. - Time Time Spent with patient: 35 or more minutes Medications reviewed and adjusted accordingly: Yes - We will add Zetia now full Anticipated discharge: Home - Inpatient Certification Based on my medical assessment, after consideration of the patient's comorbidities, presenting symptoms, or acuity I expect that the services needed warrant INPATIENT care.: Yes I certify that my determination is in accordance with my understanding of Medicare's requirements for reasonable and necessary INPATIENT services [42 CFR 412.3e].: Yes Medical Necessity: Significant Comorbidiites Make Outpatient Treatment Too Risky, Need Close Monitoring Due to Risk of Patient Decompensation, Need for Nebulizer Therapy and Monitoring of Response, Need for IV Antibiotics
[2019-09-19] MEDS: INSULIN LISPRO 100 UNIT/ML 3 ML VIAL SUBCUT SCH ×2 (16:48→21:32)
[2019-09-19] MEDS: METRONIDAZOLE 500 MG/NS RTU 500 MG/100 ML RTUPB IV SCH ×2 (18:52→23:11)
--- NOTE | 2019-09-19 20:29 | EKG REPORT ---
SEVERITY:- BORDERLINE ECG - SINUS RHYTHM PROBABLE LEFT ATRIAL ABNORMALITY : Confirmed by: Nickie Zhang MD 19-Sep-2019 20:29:04
[2019-09-19] MEDS: METOPROLOL TARTRATE 50 MG TABLET PO SCH (21:29)
[2019-09-19] MEDS: CLONIDINE HCL 0.1 MG TABLET PO SCH (21:29)
[2019-09-19] MEDS: HEPARIN SOD (PORCINE) 5,000 UNIT/ML 1 ML VIAL SUBCUT SCH (21:29)
[2019-09-19] MEDS: HYDRALAZINE HCL 50 MG TABLET PO SCH (21:29)
[2019-09-19] MEDS: GUAIFENESIN 600 MG TABLET.SA PO SCH (21:29)
[2019-09-19] MEDS: FLUTICASONE PROPIONATE HFA 110 MCG/PUFF 12 GM MDI IH SCH (21:29)
[2019-09-19] MEDS: AMLODIPINE BESYLATE 10 MG TABLET PO SCH (21:29)
[2019-09-19] MEDS ORDERED: ATORVASTATIN CALCIUM 20 MG TABLET PO SCH (22:00)
[2019-09-20] MEDS: METRONIDAZOLE 500 MG/NS RTU 500 MG/100 ML RTUPB IV SCH ×4 (05:30→23:16)
[2019-09-20] MEDS: PANTOPRAZOLE SODIUM 40 MG TABLET.DR PO SCH (05:30)
[2019-09-20] MEDS: HYDRALAZINE HCL 50 MG TABLET PO SCH ×3 (05:30→21:14)
[2019-09-20] MEDS: HEPARIN SOD (PORCINE) 5,000 UNIT/ML 1 ML VIAL SUBCUT SCH ×3 (05:31→21:23)
[2019-09-20 06:03] LABS: ANION GAP 8 (5-19); BLOOD UREA NITROGEN 85 mg/dL (7-20); CALCIUM 8.5 mg/dL (8.4-10.2); CARBON DIOXIDE 20 mmol/L (22-30); CHLORIDE 110 mmol/L (98-107); GLUCOSE 105 mg/dL (75-110); POTASSIUM 5.2 mmol/L (3.6-5.0)
[2019-09-20] MEDS: PHENOL/SODIUM PHENOLATE 100 SPRAY/177 ML BOTTLE PO PRN ×2 (06:40→21:41)
[2019-09-20 06:49] LABS: HEMATOCRIT 23.2 % (37.9-51.0); MEAN CORPUSCULAR HEMOGLOBIN 26.9 pg (27.0-33.4); MEAN CORPUSCULAR HGB CONC 32.6 g/dL (32.0-36.0); MEAN CORPUSCULAR VOLUME 83 fl (80-97); PLATELET COUNT 332 10^3/uL (150-450); RED BLOOD COUNT 2.81 10^6/uL (4.35-5.55); RED CELL DISTRIBUTION WIDTH 17.6 % (11.5-14.0); WHITE BLOOD COUNT 9.4 10^3/uL (4.0-10.5)
[2019-09-20 06:52] LABS: ABSOLUTE LYMPHOCYTES# (MANUAL) 0.4 10^3/uL (0.5-4.7); ABSOLUTE MONOCYTES # (MANUAL) 0.2 10^3/uL (0.1-1.4); BASOPHILS % (MANUAL) 0 % (0-2); EOSINOPHILS % (MANUAL) 0 % (0-6); LYMPHOCYTES % (MANUAL) 4 % (13-45); MONOCYTES % (MANUAL) 2 % (3-13); SEGMENTED NEUTROPHILS % (MAN) 94 % (42-78); TOTAL CELLS COUNTED 100
[2019-09-20 06:53] LABS: ANISOCYTOSIS 1+; BURR CELLS 1+; HYPOCHROMASIA SLIGHT; OVALOCYTES 1+; PLATELET COMMENT ADEQUATE; POIKILOCYTOSIS 1+; POLYCHROMASIA SLIGHT; SCHISTOCYTES SLIGHT; TEAR DROP CELLS SLIGHT; TOXIC GRANULATION SLIGHT
[2019-09-20 06:55] LABS: HEMOGLOBIN 7.6 g/dL (13.5-17.0)
[2019-09-20] MEDS: INSULIN LISPRO 100 UNIT/ML 3 ML VIAL SUBCUT SCH ×4 (07:59→21:39)
[2019-09-20] MEDS: CALCITRIOL 0.25 MCG CAPSULE PO SCH (09:09)
[2019-09-20] MEDS: GUAIFENESIN 600 MG TABLET.SA PO SCH ×2 (09:09→21:15)
[2019-09-20] MEDS: DOCUSATE SODIUM 100 MG CAPSULE PO SCH (09:09)
[2019-09-20] MEDS: CLONIDINE HCL 0.1 MG TABLET PO SCH ×2 (09:09→21:13)
[2019-09-20] MEDS: METOPROLOL TARTRATE 50 MG TABLET PO SCH ×2 (09:09→21:15)
[2019-09-20] MEDS: CETIRIZINE 10 MG TABLET PO SCH (09:09)
[2019-09-20] MEDS: FLUTICASONE PROPIONATE HFA 110 MCG/PUFF 12 GM MDI IH SCH ×2 (09:11→21:21)
[2019-09-20] MEDS: FLUTICASONE NASAL SPRAY 50 MCG/SPRY 120 SPRAY/16 GM NASL SCH (09:12)
[2019-09-20] MEDS: CEFTRIAXONE 1 GM/D5W RTU 1 GM/50 ML RTUPB IV SCH (09:13)
--- NOTE | 2019-09-20 10:40 | PDOC CONSULTATION ---
Consultation Consult Date: 09/20/19 Provider Consulted: Helder TIJERINA Consult reason:: SHI on CKD 5 History of Present Illness Admission Date/PCP: 09/19/19 13:58 KINGSLEY KENNY PA-C History of Present Illness: ESTUARDO HULL is a 64 year old male with a history of CKD 5 in the background of Diabetes/Hypertension, Anemia, Osteoarthritis proteinuria.He was admitted from the [facility] where he was undergoing colonoscopy and he desaturated. Currently he is doing better. He denies any history of chest pains or shortness of breath when he is laying down. However he mentions that he has been having progressive shortness of breath with exertion with a limited tolerance of approximately 50 yards over the last 1 month and has noticed some amount of progressive swelling of his legs. No complaints of any coughing spells fever or chills. Appetite has become rather poor but without any history of nausea vomiting. No complaints of any abdominal pains. Labs and medications were reviewed.His current admission creatinine was 7.3 yesterday and today is at 6.9. He is nonoliguric. He was last seen in my office in June and reviewing labs from 06/27 showed a creatinine of 6.4 compared to the previous 5.9, upc was 3.0g/day from 3.1g/day, hemoglobin is 9.0 on retacrit. No s/s of uremia. Patient denies any cough spells, chest pain. No c/o abdominal pain, nausea, vomiting, Diarrhea, melena, hematochezia. No c/o Headache, visual disturbances. No urinary c/o dysuria, hematuria.No c/o skin rashes , pruritus.No altered mental changes, focal deficits. Patient is compliant with RX and trying to stay on an appropriate diet. adequately hydrating. Past Medical History Cardiac Medical History: Reports: Hyperlipidemia, Hypertension-primary Denies: Myocardial Infarction Pulmonary Medical History: Reports: Asthma EENT Medical History: Reports: None Neurological Medical History: Reports: None Endocrine Medical History: Reports: Diabetes Mellitus Type 2 - IDDM, Obesity Denies: Hypothyroidism Complications of Diabetes: Reports: None Renal/ Medical History: Reports: Secondary Hyperparathyroidism Malignancy Medical History: Reports: None GI Medical History: Reports: Gastroesophageal Reflux Disease Musculoskeltal Medical History: Reports: None Skin Medical History: Reports: None Psychiatric Medical History: Denies: Depression Traumatic Medical History: Reports: None Infectious Medical History: Reports: None Hematology Medical History: Reports Anemia of Chronic Kidney Disease Social History Lives with: Family Smoking Status: Never Smoker Number of Years Smokin Frequency of Alcohol Use: Occasional Hx Recreational Drug Use: No Drugs: None Hx Prescription Drug Abuse: No - Advance Directive Resuscitation Status: Do Not Intubate Family History Parental Family History Reviewed: Yes - Negative for ESRD. Children Family History Reviewed: No Sibling(s) Family History Reviewed.: No Medication/Allergy Home Medications: Hum Insulin NPH/Reg Insulin Hm [Insulin 70-30 (NPH/Reg) 100 unit/mL] 7 unit SUBCUT QPM 10/28/15 Hum Insulin NPH/Reg Insulin Hm [Insulin 70-30 (NPH/Reg) 100 unit/mL] 15 unit SUBCUT QAM 10/28/15 Hydralazine HCl 50 mg PO Q8 #90 tablet 10/31/15 Metoprolol Succinate [Toprol Xl 50 mg Tab.sr] 100 mg PO BID #60 tab.sr.24h 10/31/15 Amlodipine Besylate [Norvasc 10 mg Tablet] 10 mg PO DAILY 09/19/19 Atorvastatin Calcium [Lipitor 20 mg Tablet] 20 mg PO DAILY 09/19/19 Calcitriol [Rocaltrol 0.25 mcg Capsule] 0.25 mcg PO DAILY 09/19/19 Cetirizine HCl 10 mg PO Q48HP PRN 09/19/19 Clonidine HCl [Catapres 0.1 mg Tablet] 0.1 mg PO BID 09/19/19 Flovent Hfa 220 Mcg 1 puff IH BID 09/19/19 Fluticasone Propionate [Flonase Nasal Sims 50 Mcg/Sims 16 gm] 1 applic NASL DAILY 09/19/19 Levofloxacin [Levaquin 500 mg Tablet] 500 mg PO DAILY 09/19/19 Omeprazole 40 mg PO DAILY 09/19/19 Vit B Comp No.3/Folic/C/Biotin [Celina-Kerri Rx Tablet] 1 each PO DAILY 09/19/19 Allergies/Adverse Reactions: No Known Allergies Allergy (Verified 09/14/15 08:13) Review of Systems Constitutional: PRESENT: anorexia, fatigue, weakness. ABSENT: fever(s), headache(s), night sweats Nose, Mouth, and Throat: ABSENT: mouth pain, sore throat Cardiovascular: PRESENT: dyspnea on exertion, edema. ABSENT: chest pain, orthropnea Respiratory: PRESENT: dyspnea. ABSENT: cough, hemoptysis Gastrointestinal: ABSENT: abdominal pain, bloating, coffee ground emesis, diarrhea, dysphagia, heartburn, hematemesis, nausea, vomiting Genitourinary: ABSENT: dysuria, hematuria Musculoskeletal: ABSENT: deformity, joint swelling Integumentary: ABSENT: lesions, pruritus, rash Neurological: ABSENT: abnormal movements, abnormal speech, confusion, focal weakness, frequent falls Endocrine: ABSENT: heat intolerance Hematologic/Lymphatic: ABSENT: easy bruising, lymphadenopathy Physical Exam Vital Signs: Temp Pulse Resp BP Pulse Ox 98.0 F 73 15 136/68 H 100 09/20/19 03:08 09/20/19 07:00 09/20/19 04:34 09/20/19 03:08 09/20/19 03:08 Intake & Output 09/19/19 09/20/19 09/21/19 06:59 06:59 06:59 Intake Total 1450 50 Output Total 775 Balance 675 50 Weight 100.1 kg General appearance: PRESENT: no acute distress Eye exam: PRESENT: EOMI, PERRLA. ABSENT: scleral icterus Ear exam: PRESENT: normal external ear exam Mouth exam: PRESENT: neck supple. ABSENT: moist Neck exam: ABSENT: meningismus, tenderness, thyromegaly, tracheal deviation Respiratory exam: PRESENT: clear to auscultation kay, decreased breath sounds. ABSENT: crackles Cardiovascular exam: PRESENT: +S1, +S2, systolic murmur Vascular exam: PRESENT: other - Functioning left upper arm AV fistula GI/Abdominal exam: PRESENT: normal bowel sounds, soft. ABSENT: organomegaly, tenderness Extremities exam: PRESENT: +1 edema. ABSENT: calf tenderness Neurological exam: PRESENT: alert, awake, oriented to person, oriented to place Psychiatric exam: PRESENT: appropriate affect Skin exam: ABSENT: erythema, mottled, rash Results Laboratory Results: 09/20/19 05:29 09/20/19 05:29 09/19/19 09/19/19 09/20/19 12:19 12:19 05:29 WBC 10.8 H 9.4 RBC 3.45 L 2.81 L Hgb 9.4 L 7.6 L Hct 29.2 L 23.2 L MCV 85 83 MCH 27.1 26.9 L MCHC 32.1 32.6 RDW 17.5 H 17.6 H Plt Count 405 332 Seg Neutrophils % Not Reportable Not Reportable Sodium 138.1 Potassium 5.0 Chloride 110 H Carbon Dioxide 19 L Anion Gap 9 BUN 81 H Creatinine 7.37 H Est GFR ( Amer) 9 L Glucose 129 H Calcium 8.9 Total Bilirubin 0.8 AST 20 Alkaline Phosphatase 49 Total Protein 8.0 Albumin 3.7 09/20/19 05:29 WBC RBC Hgb Hct MCV MCH MCHC RDW Plt Count Seg Neutrophils % Sodium 137.7 Potassium 5.2 H Chloride 110 H Carbon Dioxide 20 L Anion Gap 8 BUN 85 H Creatinine 6.94 H Est GFR ( Amer) 10 L Glucose 105 Calcium 8.5 Total Bilirubin AST Alkaline Phosphatase Total Protein Albumin 09/19/19 14:43 Blood Blood Culture (PCR) - Final 09/19/19 09/19/19 12:19 12:19 Troponin I 0.030 NT-Pro-B Natriuret Pep [id number] H Impressions: Chest X-Ray 09/19/19 12:03 IMPRESSION: Left lower lobe pneumonia. Assessment & Plan - Diagnosis (1) SHI (acute kidney injury) Plan: Patient has acute decompensation from his underlying CKD stage V where his base creatinine was 6.5 as of June of this year. Is possibly from his poor in take/ATN from his left lower lobe pneumonia. Currently he is got mild features suggestive of uremia and fluid overload. See how he responds to current guidelines and we will see if he needs to be dialyzed in the next couple of days based on clinical and chemical response. He has got a functioning left upper arm AV fistula. (2) Acute respiratory failure with hypoxia Is this a current diagnosis for this admission?: Yes Plan: Patient decompensated while undergoing colonoscopy. Chest x-ray shows left lower lobe pneumonia. Currently on antibiotics. (3) CKD (chronic kidney disease) stage 5, GFR less than 15 ml/min Is this a current diagnosis for this admission?: Yes Plan: Patient is got underlying CKD stage V from diabetic kidney disease. Currently he has got mild decompensation. He has got clinical symptoms of mild uremia and an early heart failure. See the response to current guidelines and if not we will plan to dialyze him in the next day or 2 using his left upper arm AV fistula. (4) Diabetes Qualifiers: Diabetes mellitus type: type 2 Diabetes mellitus salvage determiner insulin use: with residential use Chronic kidney disease stage: stage 5, not on chronic dialysis Is this a current diagnosis for this admission?: Yes Plan: Poorly controlled. (5) Hypertension Qualifiers: Hypertension type: essential hypertension Qualified Code(s): I10 - Essential (primary) hypertension Is this a current diagnosis for this admission?: Yes Plan: Controlled. Monitor. (6) Sleep apnea syndrome Qualifiers: Sleep apnea type: unspecified type Qualified Code(s): G47.30 - Sleep apnea, unspecified Plan: Status quo. (7) Left lower lobe pneumonia Plan: On antibiotics. Please dose medications for GFR of approximately 20 cc/min.
--- NOTE | 2019-09-20 12:02 | PDOC PROGRESS REPORT ---
Subjective Progress Note for:: 09/20/19 Subjective:: ESTUARDO HULL is a 64 year old male with a past medical history of CKD 4 (followed by Dr. Jade), hypertension, chronic respiratory failure (Home O2 @ 2lpm) diabetes, hyperlipidemia, sleep apnea, and obesity (home CPAP) who presented to the emergency department today via EMS from the [facility] where he was undergoing a colonoscopy had a desaturation event into the 70s requiring airway support with BVM. Two separate attempts were made to intubate the patient but were unsuccessful. Per surgical clinic staff, there was high suspicion for aspiration event. Fortunately, the patient's mentation improved; he became alert and was able to maintain his own airway, though with continued hypoxia. Evaluation in the emergency department revealed hypertension (182/84) tachypnea (RR 28), hypoxia on room air, leukocytosis (WBC is 10.8) baseline anemia (hemog lobin 9.4), SHI/CKD (Cr 7.37/BUN 81), and chest x-ray showing left lower lobe pneumonia. He was placed on BiPAP and provided IV Rocephin and metronidazole. He is referred to the hospitalist service for admission and management of the above-stated complaints and findings. 09/20/2019. Comfortably sitting with no apparent distress. Alert and oriented x3. Denies any fever, chills, nausea, vomiting, diarrhea, constipation or any urinary symptoms. P.o. tolerant. Having normal bowel and bladder movements. Reason For Visit: ACUTE RESPIRATORY FAILURE, ASPIRATION PNA Physical Exam Vital Signs: Temp Pulse Resp BP Pulse Ox 98.0 F 73 15 136/68 H 100 09/20/19 03:08 09/20/19 07:00 09/20/19 04:34 09/20/19 03:08 09/20/19 03:08 Intake & Output 09/19/19 09/20/19 09/21/19 06:59 06:59 06:59 Intake Total 1450 50 Output Total 775 Balance 675 50 Weight 100.1 kg General appearance: PRESENT: obese Head exam: PRESENT: atraumatic, normocephalic Respiratory exam: PRESENT: clear to auscultation kay. ABSENT: rales, rhonchi, wheezes Cardiovascular exam: PRESENT: RRR. ABSENT: diastolic murmur, rubs, systolic murmur GI/Abdominal exam: PRESENT: normal bowel sounds, soft. ABSENT: distended, guarding, mass, organolmegaly, rebound, tenderness Extremities exam: PRESENT: +1 edema Neurological exam: PRESENT: alert, awake, oriented to person, oriented to place, oriented to time, oriented to situation, CN II-XII grossly intact. ABSENT: motor sensory deficit Results Laboratory Results: 09/20/19 05:29 09/20/19 05:29 09/19/19 09/19/19 09/20/19 12:19 12:19 05:29 WBC 10.8 H 9.4 RBC 3.45 L 2.81 L Hgb 9.4 L 7.6 L Hct 29.2 L 23.2 L MCV 85 83 MCH 27.1 26.9 L MCHC 32.1 32.6 RDW 17.5 H 17.6 H Plt Count 405 332 Seg Neutrophils % Not Reportable Not Reportable Sodium 138.1 Potassium 5.0 Chloride 110 H Carbon Dioxide 19 L Anion Gap 9 BUN 81 H Creatinine 7.37 H Est GFR ( Amer) 9 L Glucose 129 H Calcium 8.9 Total Bilirubin 0.8 AST 20 Alkaline Phosphatase 49 Total Protein 8.0 Albumin 3.7 09/20/19 05:29 WBC RBC Hgb Hct MCV MCH MCHC RDW Plt Count Seg Neutrophils % Sodium 137.7 Potassium 5.2 H Chloride 110 H Carbon Dioxide 20 L Anion Gap 8 BUN 85 H Creatinine 6.94 H Est GFR ( Amer) 10 L Glucose 105 Calcium 8.5 Total Bilirubin AST Alkaline Phosphatase Total Protein Albumin 09/19/19 14:43 Blood Blood Culture (PCR) - Final 09/19/19 09/19/19 12:19 12:19 Troponin I 0.030 NT-Pro-B Natriuret Pep [id number] H Impressions: Chest X-Ray 09/19/19 12:03 IMPRESSION: Left lower lobe pneumonia. Assessment and Plan - Diagnosis (1) Acute respiratory failure with hypoxia Is this a current diagnosis for this admission?: Yes Plan: Improving. SPO2 WNL on 5 L nasal cannula. Most likely due to secondary to aspiration pneumonia. Day 2 empiric IV antibiotics. Day 2 IV ceftriaxone. Day 2 IV metronidazole. Continue Funk IV antibiotics. Continue supplemental oxygen as needed maintain saturations greater than 89%. (Utilizes 2 L/min at home) Continue BiPAP nightly and as needed. Continue scheduled and as needed nebulizer treatments. Encourage pulmonary toilet. (2) Aspiration pneumonia Qualifiers: Aspiration pneumonia type: due to gastric secretions Laterality: left Lung location: lower lobe of lung Qualified Code(s): J69.0 - Pneumonitis due to inhalation of food and vomit Is this a current diagnosis for this admission?: Yes Plan: Plan as per #1. (3) CKD (chronic kidney disease) stage 5, GFR less than 15 ml/min Is this a current diagnosis for this admission?: Yes Plan: Stage V CKD not on hemodialysis. AV fistula in place. Hemodialysis anticipated in the future. Dr. Jade has quality reviewer consulted. Recommendations noted. Strict in and out, monitor electrolytes, monitor vitals, replace electrolytes as needed. Continue calcitriol, avoid nephrotoxic meds. (4) Diabetes Qualifiers: Diabetes mellitus type: type 2 Diabetes mellitus salvage determiner insulin use: with salvage determiner use Chronic kidney disease stage: stage 5, not on chronic dialysis Is this a current diagnosis for this admission?: Yes Plan: Controlled. Hemoglobin A1c 5.7 as of 2019. Diabetic diet. Sliding scale insulin. Accu-Cheks. Hypoglycemic protocol. Some home meds upon discharge. Outpatient PCP follow-up. Registered dietitian and software educator consulted. (5) Hypertension Qualifiers: Hypertension type: essential hypertension Qualified Code(s): I10 - Essential (primary) hypertension Is this a current diagnosis for this admission?: Yes Plan: Controlled. Home medication regiment of amlodipine, metoprolol, clonidine, and hydralazine. Resume home meds. PRN IV hydralazine and beta-blockers. Cardiac diet. Outpatient PCP follow-up.
[2019-09-20] MEDS: AMLODIPINE BESYLATE 10 MG TABLET PO SCH (21:13)
[2019-09-20] MEDS: ATORVASTATIN CALCIUM 40 MG TABLET PO SCH (21:14)
[2019-09-20] MEDS: FUROSEMIDE INJ/PF 20 MG/2 ML SDV IV SCH (21:24)
[2019-09-20] MEDS ORDERED: ATORVASTATIN CALCIUM 20 MG TABLET PO SCH (22:00)
[2019-09-21] MEDS: HYDRALAZINE HCL 50 MG TABLET PO SCH ×3 (05:23→21:37)
[2019-09-21] MEDS: METRONIDAZOLE 500 MG/NS RTU 500 MG/100 ML RTUPB IV SCH ×3 (05:23→17:19)
[2019-09-21] MEDS: HEPARIN SOD (PORCINE) 5,000 UNIT/ML 1 ML VIAL SUBCUT SCH ×3 (05:24→21:38)
[2019-09-21] MEDS: PANTOPRAZOLE SODIUM 40 MG TABLET.DR PO SCH (05:24)
[2019-09-21 06:07] LABS: ABSOLUTE EOSINOPHILS # (AUTO) 0.1 10^3/uL (0.0-0.6); ABSOLUTE LYMPHOCYTES (AUTO) 0.4 10^3/uL (0.5-4.7); ABSOLUTE MONOCYTES (AUTO) 0.7 10^3/uL (0.1-1.4); ABSOLUTE RETICS # 0.038 10^6/uL (0.028-0.122); BASOPHILS % (AUTO) 0.5 % (0-2); EOSINOPHILS % (AUTO) 0.8 % (0-6); LYMPHOCYTES % (AUTO) 5.5 % (13-45); MEAN CORPUSCULAR HEMOGLOBIN 27.6 pg (27.0-33.4); MEAN CORPUSCULAR HGB CONC 32.8 g/dL (32.0-36.0); MEAN CORPUSCULAR VOLUME 84 fl (80-97); MONOCYTES % (AUTO) 9.4 % (3-13); PLATELET COUNT 326 10^3/uL (150-450); RED BLOOD COUNT 2.73 10^6/uL (4.35-5.55); RED CELL DISTRIBUTION WIDTH 17.5 % (11.5-14.0); RETICULOCYTE COUNT (AUTO) 1.38 % (0.66-2.85); SEGMENTED NEUTROPHILS % (AUTO) 83.8 % (42-78); TOTAL CELLS COUNTED % (AUTO) 100 %; WHITE BLOOD COUNT 7.2 10^3/uL (4.0-10.5)
[2019-09-21 06:17] LABS: HEMOGLOBIN 7.5 g/dL (13.5-17.0)
[2019-09-21 06:18] LABS: ANION GAP 10 (5-19); BLOOD UREA NITROGEN 82 mg/dL (7-20); CARBON DIOXIDE 20 mmol/L (22-30); CHLORIDE 109 mmol/L (98-107); GLUCOSE 95 mg/dL (75-110); IRON(TIBC) 22.5 ug/dL (49-181); PHOSPHORUS 5.1 mg/dL (2.5-4.5); POTASSIUM 5.1 mmol/L (3.6-5.0)
[2019-09-21] MEDS: INSULIN LISPRO 100 UNIT/ML 3 ML VIAL SUBCUT SCH ×4 (08:22→21:39)
[2019-09-21] MEDS ORDERED: FERRIC CARBOXYMALTOSE INJ 750 MG/15 ML VIAL IV SCH (09:00)
[2019-09-21] MEDS: CEFTRIAXONE 1 GM/D5W RTU 1 GM/50 ML RTUPB IV SCH (09:32)
[2019-09-21] MEDS: METOPROLOL TARTRATE 50 MG TABLET PO SCH ×2 (09:32→21:37)
[2019-09-21] MEDS: FUROSEMIDE INJ/PF 20 MG/2 ML SDV IV SCH ×2 (09:32→21:38)
[2019-09-21] MEDS: CALCITRIOL 0.25 MCG CAPSULE PO SCH (09:32)
[2019-09-21] MEDS: CETIRIZINE 10 MG TABLET PO SCH (09:32)
[2019-09-21] MEDS: GUAIFENESIN 600 MG TABLET.SA PO SCH ×2 (09:32→21:37)
[2019-09-21] MEDS: CLONIDINE HCL 0.1 MG TABLET PO SCH ×2 (09:32→21:37)
[2019-09-21] MEDS: DOCUSATE SODIUM 100 MG CAPSULE PO SCH (09:32)
[2019-09-21] MEDS: FLUTICASONE PROPIONATE HFA 110 MCG/PUFF 12 GM MDI IH SCH ×2 (09:33→21:39)
[2019-09-21] MEDS: FLUTICASONE NASAL SPRAY 50 MCG/SPRY 120 SPRAY/16 GM NASL SCH (09:33)
[2019-09-21] MEDS ORDERED: FERRIC CARBOXYMALTOSE 750 MG in NORMAL SALINE 100 ML IV ONE (10:00)
--- NOTE | 2019-09-21 11:21 | PDOC PROGRESS REPORT ---
Subjective Progress Note for:: 09/21/19 Reason For Visit: Patient seen today. He generally feels better. However he finds he still short of breath with minimal exertion. He denies any chest pain, fever or chills. Labs and medications reviewed shows worsening creatinine. He states his speech is better and not as garbled as it was earlier. His appetite is fair and no history of nausea vomiting. Physical Exam Vital Signs: Temp Pulse Resp BP Pulse Ox 97.5 F 69 18 145/68 H 100 09/21/19 07:38 09/21/19 07:38 09/21/19 07:38 09/21/19 07:38 09/21/19 07:38 Intake & Output 09/20/19 09/21/19 09/22/19 06:59 06:59 06:59 Intake Total 1450 1377 150 Output Total 775 850 Balance 675 527 150 Weight 100.1 kg 101.4 kg General appearance: PRESENT: no acute distress Respiratory exam: PRESENT: clear to auscultation kay, decreased breath sounds. ABSENT: crackles Cardiovascular exam: PRESENT: +S1, +S2, systolic murmur GI/Abdominal exam: PRESENT: normal bowel sounds, soft. ABSENT: organomegaly, tenderness Extremities exam: PRESENT: +1 edema Neurological exam: PRESENT: alert, awake, oriented to person Psychiatric exam: PRESENT: appropriate affect Skin exam: ABSENT: erythema, mottled, rash Results Laboratory Results: 09/21/19 05:46 09/21/19 05:46 09/21/19 09/21/19 09/21/19 05:46 05:46 05:46 WBC 7.2 RBC 2.73 L Hgb 7.5 L Hct 23.0 L MCV 84 MCH 27.6 MCHC 32.8 RDW 17.5 H Plt Count 326 Seg Neutrophils % 83.8 H Retic Count (auto) 1.38 Sodium 138.7 Potassium 5.1 H Chloride 109 H Carbon Dioxide 20 L Anion Gap 10 BUN 82 H Creatinine 7.28 H Est GFR ( Amer) 9 L Glucose 95 Calcium 9.0 Phosphorus 5.1 H Magnesium 2.2 Iron 22.5 L TIBC 259 % Saturation 9 Transferrin 177.77 L Ferritin 62.70 Vitamin B12 635.0 Folate 18.50 09/19/19 14:43 Blood Blood Culture (PCR) - Final 09/19/19 09/19/19 12:19 12:19 Troponin I 0.030 NT-Pro-B Natriuret Pep [id number] H Impressions: Chest X-Ray 09/19/19 12:03 IMPRESSION: Left lower lobe pneumonia. Assessment & Plan - Diagnosis (1) SHI (acute kidney injury) Plan: Patient continues to have worsening renal numbers even though he remains nonoliguric. However patient still has got features of history of early uremia as well as heart failure. Patient is got a functioning left upper arm AV fistula and he was expecting dialysis sooner than later. Procedure and complications of dialysis was again explained and patient willing to proceed. Plan for initiation of hemodialysis in the morning. (2) Acute respiratory failure with hypoxia Is this a current diagnosis for this admission?: Yes Plan: Improving. Backdrop of pneumonia. (3) CKD (chronic kidney disease) stage 5, GFR less than 15 ml/min Is this a current diagnosis for this admission?: Yes Plan: Secondary to diabetic kidney disease. Now patient showing features of early uremia and fluid overload. Initiate hemodialysis in the morning. Hepatitis serologies have been ordered as well as PPD being placed. We will start him on a short dialysis treatment tomorrow and then plan for further dialysis down the road. He should feel better and he should be able to be discharged from a renal point of view as long as we arrange social workers to arrange for outpatient dialysis with [facility]. He therefore needs social work consult to initiate dialysis arrangements as outpatient with [facility]. Once that is in place from a renal standpoint of view he will be ready to be discharged. (4) Diabetes Qualifiers: Diabetes mellitus type: type 2 Diabetes mellitus group home insulin use: with group home use Chronic kidney disease stage: stage 5, not on chronic dialysis Is this a current diagnosis for this admission?: Yes Plan: Advised tight control to prevent other complications of diabetes. (5) Hypertension Qualifiers: Hypertension type: essential hypertension Qualified Code(s): I10 - Essential (primary) hypertension Is this a current diagnosis for this admission?: Yes Plan: Controlled with room for improvement. Monitor. See response to dialysis. (6) Sleep apnea syndrome Qualifiers: Sleep apnea type: unspecified type Qualified Code(s): G47.30 - Sleep apnea, unspecified Plan: Advised compliance with CPAP. (7) Left lower lobe pneumonia Plan: Improving on antibiotics. (8) Anemia Plan: Has got a combination of iron deficiency indicis along with anemia of chronic kidney disease. We will plan to inject him with 1 dose of IV iron followed by initiation of erythropoietin on dialysis tomorrow. Explained allergic reaction/anaphylaxis and the adverse effects of IV iron and patient willing to proceed. Also had a brief discussion on erythropoietin including adverse effects of hypertension and strokes and cardiovascular effects and patient willing to proceed.
[2019-09-21] MEDS ORDERED: TUBERCULIN,PURIF.PROT.DERIV. 5 TU/0.1 ML TEST 1 ML VIAL ID PRN (12:00)
--- NOTE | 2019-09-21 12:59 | PDOC PROGRESS REPORT ---
Subjective Progress Note for:: 09/21/19 Subjective:: ESTUARDO HULL is a 64 year old male with a past medical history of CKD 4 (followed by Dr. Jade), hypertension, chronic respiratory failure (Home O2 @ 2lpm) diabetes, hyperlipidemia, sleep apnea, and obesity (home CPAP) who presented to the emergency department today via EMS from the [facility] where he was undergoing a colonoscopy had a desaturation event into the 70s requiring airway support with BVM. Two separate attempts were made to intubate the patient but were unsuccessful. Per surgical clinic staff, there was high suspicion for aspiration event. Fortunately, the patient's mentation improved; he became alert and was able to maintain his own airway, though with continued hypoxia. Evaluation in the emergency department revealed hypertension (182/84) tachypnea (RR 28), hypoxia on room air, leukocytosis (WBC is 10.8) baseline anemia (hemog lobin 9.4), SHI/CKD (Cr 7.37/BUN 81), and chest x-ray showing left lower lobe pneumonia. He was placed on BiPAP and provided IV Rocephin and metronidazole. He is referred to the hospitalist service for admission and management of the above-stated complaints and findings. 09/20/2019. Comfortably sitting with no apparent distress. Alert and oriented x3. Denies any fever, chills, nausea, vomiting, diarrhea, constipation or any urinary symptoms. P.o. tolerant. Having normal bowel and bladder movements. 09/21/2019. No acute events overnight. Comfortably stable no apparent distress. Shortness of breath improved, denies any fever, chills, nausea, vomiting, diarrhea, constipation or any urinary symptoms. Nonoliguric however no significant changes on his creatinine level, nephrology on board, for hemodialysis possibly tomorrow. Reason For Visit: ACUTE RESPIRATORY FAILURE, ASPIRATION PNA Physical Exam Vital Signs: Temp Pulse Resp BP Pulse Ox 98.0 F 72 18 163/66 H 98 09/21/19 11:47 09/21/19 11:47 09/21/19 11:47 09/21/19 11:47 09/21/19 11:47 Intake & Output 09/20/19 09/21/19 09/22/19 06:59 06:59 06:59 Intake Total 1450 1377 150 Output Total 775 850 Balance 675 527 150 Weight 100.1 kg 101.4 kg General appearance: PRESENT: no acute distress, well-developed, well-nourished Head exam: PRESENT: atraumatic, normocephalic Respiratory exam: PRESENT: clear to auscultation kay, crackles. ABSENT: rales, rhonchi, wheezes Cardiovascular exam: PRESENT: RRR. ABSENT: diastolic murmur, rubs, systolic murmur GI/Abdominal exam: PRESENT: normal bowel sounds, soft. ABSENT: distended, guarding, mass, organolmegaly, rebound, tenderness Extremities exam: PRESENT: +1 edema Neurological exam: PRESENT: alert, awake, oriented to person, oriented to place, oriented to time, oriented to situation, CN II-XII grossly intact. ABSENT: motor sensory deficit Results Laboratory Results: 09/21/19 05:46 09/21/19 05:46 09/21/19 09/21/19 09/21/19 05:46 05:46 05:46 WBC 7.2 RBC 2.73 L Hgb 7.5 L Hct 23.0 L MCV 84 MCH 27.6 MCHC 32.8 RDW 17.5 H Plt Count 326 Seg Neutrophils % 83.8 H Retic Count (auto) 1.38 Sodium 138.7 Potassium 5.1 H Chloride 109 H Carbon Dioxide 20 L Anion Gap 10 BUN 82 H Creatinine 7.28 H Est GFR ( Amer) 9 L Glucose 95 Calcium 9.0 Phosphorus 5.1 H Magnesium 2.2 Iron 22.5 L TIBC 259 % Saturation 9 Transferrin 177.77 L Ferritin 62.70 Vitamin B12 635.0 Folate 18.50 09/19/19 14:43 Blood Blood Culture (PCR) - Final 09/19/19 09/19/19 12:19 12:19 Troponin I 0.030 NT-Pro-B Natriuret Pep [id number] H Impressions: Chest X-Ray 09/19/19 12:03 IMPRESSION: Left lower lobe pneumonia. Assessment and Plan - Diagnosis (1) Acute respiratory failure with hypoxia Is this a current diagnosis for this admission?: Yes Plan: Improving. SPO2 WNL on 3 L nasal cannula. Most likely due to secondary to aspiration pneumonia. Day 3 empiric IV antibiotics. Day 3 IV ceftriaxone. Day 3 IV metronidazole. Continue empiric IV antibiotics. Continue supplemental oxygen as needed maintain saturations greater than 89%. (Utilizes 2 L/min at home) Continue BiPAP nightly and as needed. Continue scheduled and as needed nebulizer treatments. Encourage pulmonary toilet. (2) Acute CHF (congestive heart failure) Qualifiers: Heart failure type: systolic Qualified Code(s): I50.21 - Acute systolic (congestive) heart failure Is this a current diagnosis for this admission?: Yes Plan: Acute systolic heart failure. Denies any chest pain. No recent echo available. Echo from 10/30/2015 Left ventricular ejection fraction WNL. Grade 1/4 mild diastolic dysfunction. proBNP 29,900 up from baseline of 10,000. Strict in and out, IV diuretics, beta-blockers, will start on MOMO once kidney function stabilizes. (3) Aspiration pneumonia Qualifiers: Aspiration pneumonia type: due to gastric secretions Laterality: left Lung location: lower lobe of lung Qualified Code(s): J69.0 - Pneumonitis due to inhalation of food and vomit Is this a current diagnosis for this admission?: Yes Plan: Plan as per #1. (4) CKD (chronic kidney disease) stage 5, GFR less than 15 ml/min Is this a current diagnosis for this admission?: Yes Plan: Nonoliguric. BUN and creatinine unchanged from yesterday. Mild hyperkalemia. No acute EKG changes. Stage V CKD not on hemodialysis. AV fistula in place. Possible hemodialysis tomorrow. Nephrology on board. Strict in and out, monitor electrolytes, monitor vitals, replace electrolytes as needed. Continue calcitriol, avoid nephrotoxic meds. (5) Diabetes Qualifiers: Diabetes mellitus type: type 2 Diabetes mellitus dental associate insulin use: with intermediate use Chronic kidney disease stage: stage 5, not on chronic dialysis Is this a current diagnosis for this admission?: Yes Plan: Controlled. Hemoglobin A1c 5.7 as of 2019. Diabetic diet. Sliding scale insulin. Accu-Cheks. Hypoglycemic protocol. Some home meds upon discharge. Outpatient PCP follow-up. Registered dietitian and ems educator consulted. (6) Hypertension Qualifiers: Hypertension type: essential hypertension Qualified Code(s): I10 - Essential (primary) hypertension Is this a current diagnosis for this admission?: Yes Plan: Improving. Not optimized. Home medication regiment of amlodipine, metoprolol, clonidine, and hydralazine. Resume home meds. PRN IV hydralazine and beta-blockers. Cardiac diet. Outpatient PCP follow-up. (7) Anemia Qualifiers: Anemia type: due to chronic kidney disease Is this a current diagnosis for this admission?: Yes Plan: Likely combination of iron deficiency anemia anemia of chronic disease. Denies any easy bleeding, hematuria, hematochezia, melena, hemoptysis or hematemesis. Received 1 dose of Injectafer on 09/21/2019. Scheduled to receive erythropoietin during hemodialysis on 09/22/2019. Monitor H&H. Avoid transfusion if possible given patient is developing end- stage renal disease and may need kidney transplant in the future. (8) Hyperkalemia Is this a current diagnosis for this admission?: Yes Plan: Due to end-stage renal disease. No acute EKG changes. Hyperkalemia protocol. Potassium level tomorrow.
[2019-09-21] MEDS ORDERED: SODIUM POLYSTYRENE SULFONATE 15 GM/60 ML PO ONE (14:00)
[2019-09-21] MEDS: AMLODIPINE BESYLATE 10 MG TABLET PO SCH (21:37)
[2019-09-21] MEDS: ATORVASTATIN CALCIUM 40 MG TABLET PO SCH (21:37)
--- NOTE | 2019-09-21 23:46 | XCELERA REPORT ---
[address] [address] Transthoracic Echocardiogram Report Name: ESTUARDO HULL Age: 64 yrs Gender: Male : 1955 Patient Status: Inpatient Patient Location: [address] [place], [place] [id number] Study Date: 09/21/2019 04:19 PM History: CHF Height: 70 in Weight: 223 lb BSA: 2.2 m2 Procedure: A complete two-dimensional transthoracic echocardiogram was performed (2D, M-mode, spectral and color flow Doppler). Reason For Study: worsening CHF Ordering Physician: JONNY ROES Performed By: Joana Spears Interpretation Summary Left ventricular systolic function is normal. The Ejection Fraction estimate is 55-60% The right ventricle is moderately dilated. The right ventricular systolic function is mild to moderately reduced. There is a mild amount of mitral regurgitation There is no aortic valve stenosis There is a moderate amount of tricuspid regurgitation There is moderate to severe pulmonary hypertension by echo There is no pericardial effusion. MMode/2D Measurements & Calculations RVDd: 3.8 cm LVIDd: 5.4 cm FS: 35.9 % Ao root diam: 3.4 cm IVSd: 1.6 cm LVIDs: 3.4 cm EDV(Teich): 140.3 ml Ao root area: 8.8 cm2 LVPWd: 1.0 cm ESV(Teich): 49.1 ml LA dimension: 5.3 cm EF(Teich): 65.0 % Doppler Measurements & Calculations MV E max ghanshyam: MV P1/2t max ghanshyam: Ao V2 max: LV V1 max P.4 cm/sec 141.2 cm/sec 172.6 cm/sec 8.6 mmHg MV A max ghanshyam: MV P1/2t: 89.0 msec Ao max PG: LV V1 max: 75.1 cm/sec MVA(P1/2t): 2.5 cm2 11.9 mmHg 147.0 cm/sec MV E/A: 1.8 MV dec slope: 464.5 cm/sec2 MV dec time: 0.23 sec PA V2 max: PI end-d ghanshyam: TR max ghanshyam: MV P1/2t-pr_phl: 109.1 cm/sec 139.0 cm/sec 348.8 cm/sec 89.0 msec PA max P.8 mmHg TR max P.7 mmHg Left Ventricle The left ventricle is grossly normal size. There is moderate to severe concentric left ventricular hypertrophy. Left ventricular systolic function is normal. The Ejection Fraction estimate is 55-60%. Doppler measurements suggest pseudonormalized left ventricular relaxation, which is associated with grade II/IV or mild to moderate diastolic dysfunction. Right Ventricle The right ventricle is moderately dilated. The right ventricular systolic function is mild to moderately reduced. Atria The right atrium is moderately dilated. The left atrium is moderately dilated. Mitral Valve The mitral valve is grossly normal. There is no mitral valve stenosis. There is a mild amount of mitral regurgitation. Aortic Valve The aortic valve is trileaflet. The aortic valve opens well. The aortic valve is sclerotic, but shows no functional abnormality. There is no aortic valve stenosis. No aortic regurgitation is present. Tricuspid Valve The tricuspid valve is normal in structure but shows some degree of being functionally abnormal. There is a moderate amount of tricuspid regurgitation. Right ventricular systolic pressure is estimated to be elevated at 50-60mmHg. There is moderate to severe pulmonary hypertension by echo. Pulmonic Valve The pulmonic valve is not well seen, but is grossly normal. There is a mild amount of pulmonic regurgitation. Great Vessels The aortic root is normal size. The IVC is dilated and has no respiratory collapse suggesting significantly high central venous pressures. Effusions There is no pericardial effusion. : JONNY ROSE Anil
[2019-09-22] MEDS: METRONIDAZOLE 500 MG/NS RTU 500 MG/100 ML RTUPB IV SCH ×3 (01:11→15:42)
[2019-09-22] MEDS: HYDRALAZINE HCL 50 MG TABLET PO SCH ×3 (05:41→21:31)
[2019-09-22] MEDS: PANTOPRAZOLE SODIUM 40 MG TABLET.DR PO SCH (05:42)
[2019-09-22] MEDS: HEPARIN SOD (PORCINE) 5,000 UNIT/ML 1 ML VIAL SUBCUT SCH ×3 (05:42→21:32)
[2019-09-22 07:04] LABS: HEMATOCRIT 24.6 % (37.9-51.0); MEAN CORPUSCULAR HEMOGLOBIN 27.2 pg (27.0-33.4); MEAN CORPUSCULAR HGB CONC 32.3 g/dL (32.0-36.0); MEAN CORPUSCULAR VOLUME 84 fl (80-97); PLATELET COUNT 339 10^3/uL (150-450); RED BLOOD COUNT 2.93 10^6/uL (4.35-5.55); RED CELL DISTRIBUTION WIDTH 17.7 % (11.5-14.0); WHITE BLOOD COUNT 7.1 10^3/uL (4.0-10.5)
[2019-09-22 07:14] LABS: ANION GAP 11 (5-19); BLOOD UREA NITROGEN 84 mg/dL (7-20); CALCIUM 9.2 mg/dL (8.4-10.2); CARBON DIOXIDE 18 mmol/L (22-30); CHLORIDE 109 mmol/L (98-107); GLUCOSE 100 mg/dL (75-110); PHOSPHORUS 4.6 mg/dL (2.5-4.5); POTASSIUM 5.5 mmol/L (3.6-5.0)
[2019-09-22 07:20] LABS: HEMOGLOBIN 7.9 g/dL (13.5-17.0)
[2019-09-22 07:38] LABS: HEPATITS B SURFACE ANTIGEN Negative (Negative)
[2019-09-22 07:52] LABS: HEPATITIS B CORE AB TOT Negative (Negative)
[2019-09-22] MEDS: INSULIN LISPRO 100 UNIT/ML 3 ML VIAL SUBCUT SCH ×4 (08:13→22:00)
[2019-09-22] MEDS ORDERED: EPOETIN ALFA-EPBX 2,000 UNIT, EPOETIN ALFA-EPBX 3,000 UNIT, EPOETIN ALFA-EPBX 20,000 UN... IV PRN ×4 (08:15)
[2019-09-22] MEDS: GUAIFENESIN 600 MG TABLET.SA PO SCH ×2 (09:29→21:32)
[2019-09-22] MEDS: FLUTICASONE PROPIONATE HFA 110 MCG/PUFF 12 GM MDI IH SCH ×2 (09:29→21:37)
[2019-09-22] MEDS: FLUTICASONE NASAL SPRAY 50 MCG/SPRY 120 SPRAY/16 GM NASL SCH (09:29)
[2019-09-22] MEDS: METOPROLOL TARTRATE 50 MG TABLET PO SCH ×2 (09:29→21:31)
[2019-09-22] MEDS: CLONIDINE HCL 0.1 MG TABLET PO SCH ×2 (09:29→21:30)
[2019-09-22] MEDS: FUROSEMIDE INJ/PF 20 MG/2 ML SDV IV SCH ×2 (09:29→21:32)
[2019-09-22] MEDS: CALCITRIOL 0.25 MCG CAPSULE PO SCH (09:29)
[2019-09-22] MEDS: DOCUSATE SODIUM 100 MG CAPSULE PO SCH (09:29)
[2019-09-22] MEDS: CETIRIZINE 10 MG TABLET PO SCH (09:29)
[2019-09-22] MEDS: CEFTRIAXONE 1 GM/D5W RTU 1 GM/50 ML RTUPB IV SCH (09:32)
--- NOTE | 2019-09-22 09:42 | PDOC PROGRESS REPORT ---
Subjective Progress Note for:: 09/22/19 Subjective:: ESTUARDO HULL is a 64 year old male with a past medical history of CKD 4 (followed by Dr. Jade), hypertension, chronic respiratory failure (Home O2 @ 2lpm) diabetes, hyperlipidemia, sleep apnea, and obesity (home CPAP) who presented to the emergency department today via EMS from the [facility] where he was undergoing a colonoscopy had a desaturation event into the 70s requiring airway support with BVM. Two separate attempts were made to intubate the patient but were unsuccessful. Per surgical clinic staff, there was high suspicion for aspiration event. Fortunately, the patient's mentation improved; he became alert and was able to maintain his own airway, though with continued hypoxia. Evaluation in the emergency department revealed hypertension (182/84) tachypnea (RR 28), hypoxia on room air, leukocytosis (WBC is 10.8) baseline anemia (hemog lobin 9.4), SHI/CKD (Cr 7.37/BUN 81), and chest x-ray showing left lower lobe pneumonia. He was placed on BiPAP and provided IV Rocephin and metronidazole. He is referred to the hospitalist service for admission and management of the above-stated complaints and findings. 09/20/2019. Comfortably sitting with no apparent distress. Alert and oriented x3. Denies any fever, chills, nausea, vomiting, diarrhea, constipation or any urinary symptoms. P.o. tolerant. Having normal bowel and bladder movements. 09/21/2019. No acute events overnight. Comfortably stable no apparent distress. Shortness of breath improved, denies any fever, chills, nausea, vomiting, diarrhea, constipation or any urinary symptoms. Nonoliguric however no significant changes on his creatinine level, nephrology on board, for hemodialysis possibly tomorrow. 09/22/2019. No acute events overnight. Comfortably stable no apparent distress. Shortness of breath improving, endorses lower urine output than yesterday, de nies any chest pain, nausea, vomiting, diarrhea, constipation or any urinary symptoms. Scheduled for his hemodialysis today. Reason For Visit: ACUTE RESPIRATORY FAILURE, ASPIRATION PNA Physical Exam Vital Signs: Temp Pulse Resp BP Pulse Ox 98.1 F 82 16 149/70 H 97 09/21/19 19:28 09/22/19 06:34 09/21/19 20:43 09/21/19 19:28 09/22/19 05:46 Intake & Output 09/21/19 09/22/19 09/23/19 06:59 06:59 06:59 Intake Total 1377 1050 100 Output Total 850 475 Balance 527 575 100 Weight 101.4 kg 102 kg General appearance: PRESENT: no acute distress, well-developed, well-nourished Head exam: PRESENT: atraumatic, normocephalic Respiratory exam: PRESENT: clear to auscultation kay, decreased breath sounds. ABSENT: rales, rhonchi, wheezes Cardiovascular exam: PRESENT: RRR. ABSENT: diastolic murmur, rubs, systolic murmur GI/Abdominal exam: PRESENT: normal bowel sounds, soft. ABSENT: distended, guarding, mass, organolmegaly, rebound, tenderness Extremities exam: PRESENT: +1 edema Neurological exam: PRESENT: alert, awake, oriented to person, oriented to place, oriented to time, oriented to situation, CN II-XII grossly intact. ABSENT: motor sensory deficit Results Laboratory Results: 09/22/19 06:45 09/22/19 06:45 09/22/19 09/22/19 09/22/19 06:45 06:45 06:45 WBC 7.1 RBC 2.93 L Hgb 7.9 L Hct 24.6 L MCV 84 MCH 27.2 MCHC 32.3 RDW 17.7 H Plt Count 339 Sodium 138.0 Potassium 5.5 H Chloride 109 H Carbon Dioxide 18 L Anion Gap 11 BUN 84 H Creatinine 7.43 H Est GFR ( Amer) 9 L Glucose 100 Calcium 9.2 Phosphorus 4.6 H PTH Intact 84.3 H 09/19/19 14:43 Blood Blood Culture (PCR) - Final 09/19/19 09/19/19 12:19 12:19 Troponin I 0.030 NT-Pro-B Natriuret Pep [id number] H Impressions: Chest X-Ray 09/19/19 12:03 IMPRESSION: Left lower lobe pneumonia. Assessment and Plan - Diagnosis (1) Acute respiratory failure with hypoxia Is this a current diagnosis for this admission?: Yes Plan: Improving. SPO2 WNL on 3 L nasal cannula. Most likely due to secondary to aspiration pneumonia. Day 4 empiric IV antibiotics. Day 4 IV ceftriaxone. Day 4 IV metronidazole. Continue empiric IV antibiotics. Continue supplemental oxygen as needed maintain saturations greater than 89%. (Utilizes 2 L/min at home) Continue BiPAP nightly and as needed. Continue scheduled and as needed nebulizer treatments. Encourage pulmonary toilet. (2) Acute CHF (congestive heart failure) Qualifiers: Heart failure type: systolic Qualified Code(s): I50.21 - Acute systolic (congestive) heart failure Is this a current diagnosis for this admission?: Yes Plan: Acute systolic heart failure. Denies any chest pain. No recent echo available. Echo from 10/30/2015 Left ventricular ejection fraction WNL. Grade 1/4 mild diastolic dysfunction. proBNP 29,900 up from baseline of 10,000. Continue strict in and out, IV diuretics, beta-blockers, will start on MOMO once kidney function stabilizes. Pending 2D echo. (3) Aspiration pneumonia Qualifiers: Aspiration pneumonia type: due to gastric secretions Laterality: left Lung location: lower lobe of lung Qualified Code(s): J69.0 - Pneumonitis due to inhalation of food and vomit Is this a current diagnosis for this admission?: Yes Plan: Plan as per #1. (4) CKD (chronic kidney disease) stage 5, GFR less than 15 ml/min Is this a current diagnosis for this admission?: Yes Plan: Nonoliguric. BUN and creatinine unchanged from yesterday. Mild hyperkalemia. No acute EKG changes. Stage V CKD not on hemodialysis. AV fistula in place. Hemodialysis today. Nephrology on board. Strict in and out, monitor electrolytes, monitor vitals, replace electrolytes as needed. Continue calcitriol, avoid nephrotoxic meds. (5) Diabetes Qualifiers: Diabetes mellitus type: type 2 Diabetes mellitus senior living insulin use: with intermodal dispatcher use Chronic kidney disease stage: stage 5, not on chronic dialysis Is this a current diagnosis for this admission?: Yes Plan: Controlled. Hemoglobin A1c 5.7 as of 2019. Diabetic diet. Sliding scale insulin. Accu-Cheks. Hypoglycemic protocol. Some home meds upon discharge. Outpatient PCP follow-up. Registered dietitian and telehealth nurse educator consulted. (6) Hypertension Qualifiers: Hypertension type: essential hypertension Qualified Code(s): I10 - Essential (primary) hypertension Is this a current diagnosis for this admission?: Yes Plan: Improving. Not optimized. Home medication regiment of amlodipine, metoprolol, clonidine, and hydralazine. Resume home meds. PRN IV hydralazine and beta-blockers. Cardiac diet. Outpatient PCP follow-up. (7) Anemia Qualifiers: Anemia type: due to chronic kidney disease Is this a current diagnosis for this admission?: Yes Plan: H&H stable. Trending up. Likely combination of iron deficiency anemia anemia of chronic disease. Denies any easy bleeding, hematuria, hematochezia, melena, hemoptysis or hematemesis. Received 1 dose of Injectafer on 09/21/2019. Scheduled to receive erythropoietin during hemodialysis on 09/22/2019. Monitor H&H. Avoid transfusion if possible given patient is developing end- stage renal disease and may need kidney transplant in the future. (8) Hyperkalemia Is this a current diagnosis for this admission?: Yes Plan: Due to end-stage renal disease. No acute EKG changes. Hyperkalemia protocol. Hemodialysis today. Potassium level tomorrow.
--- NOTE | 2019-09-22 14:39 | PDOC PROGRESS REPORT ---
Subjective Progress Note for:: 09/22/19 Reason For Visit: Patient seen in the hospital today. He thinks his breathing is better but if he does not hardly exert much. His appetite is not very good. His urine output has been dropping slowly but surely over the last couple of days since admission. Labs and medications reviewed shows worsening renal functions with increasing potassium and acidosis. Anemia is same but he received IV iron. Labs and medications were discussed with him. He is all ready for hemodialysis and I will be seeing him again later on today while on dialysis.Patient is subsequently seen while on dialysis. He is undergoing dialysis without any issues through his left upper upper arm AV fistula. The left upper arm AV fistula is a bit stenotic and would need to be worked on once he is discharged. Labs and medications were reviewed with the treating nurse. Dialysis orders were reviewed with her as well. Physical Exam Vital Signs: Temp Pulse Resp BP Pulse Ox 97.6 F 70 18 149/73 H 98 09/22/19 11:58 09/22/19 14:00 09/22/19 11:58 09/22/19 11:58 09/22/19 11:58 Intake & Output 09/21/19 09/22/19 09/23/19 06:59 06:59 06:59 Intake Total 1377 1050 630 Output Total 850 475 225 Balance 527 575 405 Weight 101.4 kg 102 kg General appearance: PRESENT: no acute distress Respiratory exam: PRESENT: clear to auscultation kay, decreased breath sounds. ABSENT: crackles Cardiovascular exam: PRESENT: +S1, +S2, systolic murmur GI/Abdominal exam: PRESENT: normal bowel sounds, soft. ABSENT: organomegaly, tenderness Extremities exam: PRESENT: +1 edema Neurological exam: PRESENT: alert, awake, oriented to person, oriented to place Psychiatric exam: PRESENT: appropriate affect Results Laboratory Results: 09/22/19 06:45 09/22/19 06:45 09/22/19 09/22/19 09/22/19 06:45 06:45 06:45 WBC 7.1 RBC 2.93 L Hgb 7.9 L Hct 24.6 L MCV 84 MCH 27.2 MCHC 32.3 RDW 17.7 H Plt Count 339 Sodium 138.0 Potassium 5.5 H Chloride 109 H Carbon Dioxide 18 L Anion Gap 11 BUN 84 H Creatinine 7.43 H Est GFR ( Amer) 9 L Glucose 100 Calcium 9.2 Phosphorus 4.6 H PTH Intact 84.3 H 09/19/19 14:43 Blood Blood Culture (PCR) - Final 09/19/19 14:43 Blood Blood Culture - Final Acinetobacter Species 09/19/19 09/19/19 12:19 12:19 Troponin I 0.030 NT-Pro-B Natriuret Pep [id number] H Impressions: Chest X-Ray 09/19/19 12:03 IMPRESSION: Left lower lobe pneumonia. Assessment & Plan - Diagnosis (1) SHI (acute kidney injury) Plan: Patient continues to have worsening renal numbers even though he remains nonoliguric but dropping urine output. However patient still has got features of history of early uremia as well as heart failure. Patient is got a functioning left upper arm AV fistula and he was expecting dialysis sooner than later. Patient was subsequently seen on dialysis. Patient undergoing dialysis without any issues. Vital signs are stable. Plan to remove approx 2.5 to 3 L as tolerated. Dialysis orders were reviewed with the treating dialysis nurse. (2) CKD (chronic kidney disease) stage 5, GFR less than 15 ml/min Is this a current diagnosis for this admission?: Yes Plan: Secondary to diabetic kidney disease. Now patient showing features of early uremia and fluid overload. Initiated hemodialysis and the patient currently on dialysis. Dialysis is being going on without any issues. Vital signs are stable. Dialysis being supervised to ensure safe and smooth procedure. Plan to remove approximately 3 L of fluid as tolerated. He should feel better and he should be able to be discharged from a renal point of view as long as we arrange social workers to arrange for outpatient dialysis with [facility]. He therefore needs social work consult to initiate dialysis arrangements as outpatient with [facility]. Once that is in place from a renal standpoint of view he will be ready to be discharged. (3) Acute respiratory failure with hypoxia Is this a current diagnosis for this admission?: Yes Plan: Improving. Backdrop of pneumonia. (4) Diabetes Qualifiers: Diabetes mellitus type: type 2 Diabetes mellitus alf insulin use: with terminal gauger use Chronic kidney disease stage: stage 5, not on chronic dialysis Is this a current diagnosis for this admission?: Yes Plan: Advised tight control to prevent other complications of diabetes. (5) Hypertension Qualifiers: Hypertension type: essential hypertension Qualified Code(s): I10 - Essential (primary) hypertension Is this a current diagnosis for this admission?: Yes Plan: Controlled with room for improvement. Monitor. See response to dialysis. (6) Sleep apnea syndrome Qualifiers: Sleep apnea type: unspecified type Qualified Code(s): G47.30 - Sleep apnea, unspecified Plan: Advised compliance with CPAP. (7) Left lower lobe pneumonia Plan: Improving on antibiotics. (8) Anemia Qualifiers: Anemia type: due to chronic kidney disease Is this a current diagnosis for this admission?: Yes Plan: Patient was given IV iron the day before. Currently he is also been given erythropoietin after his adverse effects were explained..
[2019-09-22] MEDS ORDERED: METRONIDAZOLE 500 MG/NS RTU 500 MG/100 ML RTUPB IV SCH (21:00)
[2019-09-22] MEDS: ATORVASTATIN CALCIUM 40 MG TABLET PO SCH (21:31)
[2019-09-22] MEDS: AMLODIPINE BESYLATE 10 MG TABLET PO SCH (21:41)
[2019-09-22] MEDS ORDERED: CEFEPIME 1 GM/D5W RTU 1 GM/50 ML RTUPB IV SCH (22:00)
[2019-09-23] MEDS: HEPARIN SOD (PORCINE) 5,000 UNIT/ML 1 ML VIAL SUBCUT SCH ×3 (05:28→21:52)
[2019-09-23] MEDS: HYDRALAZINE HCL 50 MG TABLET PO SCH ×3 (05:29→21:54)
[2019-09-23] MEDS: PANTOPRAZOLE SODIUM 40 MG TABLET.DR PO SCH (05:29)
[2019-09-23 06:37] LABS: HEMATOCRIT 22.1 % (37.9-51.0); MEAN CORPUSCULAR HEMOGLOBIN 27.1 pg (27.0-33.4); MEAN CORPUSCULAR HGB CONC 32.2 g/dL (32.0-36.0); MEAN CORPUSCULAR VOLUME 84 fl (80-97); PLATELET COUNT 334 10^3/uL (150-450); RED BLOOD COUNT 2.63 10^6/uL (4.35-5.55); RED CELL DISTRIBUTION WIDTH 17.4 % (11.5-14.0); WHITE BLOOD COUNT 7.4 10^3/uL (4.0-10.5)
[2019-09-23 06:46] LABS: HEMOGLOBIN 7.1 g/dL (13.5-17.0)
[2019-09-23 06:57] LABS: ANION GAP 8 (5-19); BLOOD UREA NITROGEN 65 mg/dL (7-20); CALCIUM 8.7 mg/dL (8.4-10.2); CARBON DIOXIDE 23 mmol/L (22-30); CHLORIDE 106 mmol/L (98-107); GLUCOSE 83 mg/dL (75-110); PHOSPHORUS 3.9 mg/dL (2.5-4.5); POTASSIUM 4.6 mmol/L (3.6-5.0)
[2019-09-23] MEDS: INSULIN LISPRO 100 UNIT/ML 3 ML VIAL SUBCUT SCH ×4 (08:30→21:45)
[2019-09-23] MEDS: FUROSEMIDE 40 MG TABLET PO SCH ×2 (09:32→18:00)
[2019-09-23] MEDS: METOPROLOL TARTRATE 50 MG TABLET PO SCH ×2 (09:32→21:53)
[2019-09-23] MEDS: GUAIFENESIN 600 MG TABLET.SA PO SCH ×2 (09:32→21:53)
[2019-09-23] MEDS: CLONIDINE HCL 0.1 MG TABLET PO SCH ×2 (09:32→21:54)
[2019-09-23] MEDS: CALCITRIOL 0.25 MCG CAPSULE PO SCH (09:32)
[2019-09-23] MEDS: FLUTICASONE NASAL SPRAY 50 MCG/SPRY 120 SPRAY/16 GM NASL SCH (09:33)
[2019-09-23] MEDS: CETIRIZINE 10 MG TABLET PO SCH (09:33)
[2019-09-23] MEDS: FLUTICASONE PROPIONATE HFA 110 MCG/PUFF 12 GM MDI IH SCH ×2 (09:33→21:52)
[2019-09-23] MEDS: DOCUSATE SODIUM 100 MG CAPSULE PO SCH (09:33)
--- NOTE | 2019-09-23 09:41 | PDOC PROGRESS REPORT ---
Subjective Progress Note for:: 09/23/19 Subjective:: ESTUARDO HULL is a 64 year old male with a past medical history of CKD 4 (followed by Dr. Jade), hypertension, chronic respiratory failure (Home O2 @ 2lpm) diabetes, hyperlipidemia, sleep apnea, and obesity (home CPAP) who presented to the emergency department today via EMS from the [facility] where he was undergoing a colonoscopy had a desaturation event into the 70s requiring airway support with BVM. Two separate attempts were made to intubate the patient but were unsuccessful. Per surgical clinic staff, there was high suspicion for aspiration event. Fortunately, the patient's mentation improved; he became alert and was able to maintain his own airway, though with continued hypoxia. Evaluation in the emergency department revealed hypertension (182/84) tachypnea (RR 28), hypoxia on room air, leukocytosis (WBC is 10.8) baseline anemia (hemog lobin 9.4), SHI/CKD (Cr 7.37/BUN 81), and chest x-ray showing left lower lobe pneumonia. He was placed on BiPAP and provided IV Rocephin and metronidazole. He is referred to the hospitalist service for admission and management of the above-stated complaints and findings. 09/20/2019. Comfortably sitting with no apparent distress. Alert and oriented x3. Denies any fever, chills, nausea, vomiting, diarrhea, constipation or any urinary symptoms. P.o. tolerant. Having normal bowel and bladder movements. 09/21/2019. No acute events overnight. Comfortably stable no apparent distress. Shortness of breath improved, denies any fever, chills, nausea, vomiting, diarrhea, constipation or any urinary symptoms. Nonoliguric however no significant changes on his creatinine level, nephrology on board, for hemodialysis possibly tomorrow. 09/22/2019. No acute events overnight. Comfortably stable no apparent distress. Shortness of breath improving, endorses lower urine output than yesterday, de nies any chest pain, nausea, vomiting, diarrhea, constipation or any urinary symptoms. Scheduled for his hemodialysis today. 09/23/2019. No acute events overnight. Patient comfortably sitting on the edge of the bed in no apparent distress, stating that he is feeling much better today, lower extremity edema are improving, denies any shortness of breath, chest pain, nausea, vomiting, diarrhea, constipation or any urinary symptoms. Reason For Visit: ACUTE RESPIRATORY FAILURE, ASPIRATION PNA Physical Exam Vital Signs: Temp Pulse Resp BP Pulse Ox 98.4 F 78 18 150/70 H 90 L 09/23/19 08:09 09/23/19 08:09 09/23/19 08:09 09/23/19 08:09 09/23/19 08:09 Intake & Output 09/22/19 09/23/19 09/24/19 06:59 06:59 06:59 Intake Total 1050 1455 Output Total 475 4300 Balance 575 -2845 Weight 102 kg 99.4 kg General appearance: PRESENT: no acute distress, obese, well-developed, well- nourished Head exam: PRESENT: atraumatic, normocephalic Respiratory exam: PRESENT: clear to auscultation kay, decreased breath sounds. ABSENT: rales, rhonchi, wheezes Cardiovascular exam: PRESENT: RRR. ABSENT: diastolic murmur, rubs, systolic murmur GI/Abdominal exam: PRESENT: normal bowel sounds, soft. ABSENT: distended, guarding, mass, organolmegaly, rebound, tenderness Extremities exam: PRESENT: full ROM, +1 edema. ABSENT: calf tenderness, clubbing, pedal edema Neurological exam: PRESENT: alert, awake, oriented to person, oriented to place, oriented to time, oriented to situation, CN II-XII grossly intact. ABSENT: motor sensory deficit Results Laboratory Results: 09/23/19 05:20 09/23/19 05:20 09/23/19 09/23/19 05:20 05:20 WBC 7.4 RBC 2.63 L Hgb 7.1 L Hct 22.1 L MCV 84 MCH 27.1 MCHC 32.2 RDW 17.4 H Plt Count 334 Sodium 137.4 Potassium 4.6 Chloride 106 Carbon Dioxide 23 Anion Gap 8 BUN 65 H Creatinine 5.70 H Est GFR ( Amer) 12 L Glucose 83 Calcium 8.7 Phosphorus 3.9 Magnesium 2.0 09/19/19 14:43 Blood Blood Culture (PCR) - Final 09/19/19 14:43 Blood Blood Culture - Final Acinetobacter Species 09/19/19 09/19/19 12:19 12:19 Troponin I 0.030 NT-Pro-B Natriuret Pep 76608 H Impressions: Chest X-Ray 09/19/19 12:03 IMPRESSION: Left lower lobe pneumonia. Assessment and Plan - Diagnosis (1) Acute respiratory failure with hypoxia Is this a current diagnosis for this admission?: Yes Plan: Significant improvement postdialysis. SPO2 WNL on 1 L nasal cannula. Most likely due to secondary to aspiration pneumonia complicated by underlying CHF and end-stage renal disease. Day 5 empiric IV antibiotics. Day 1 IV meropenem. Received 1 day of IV cefepime. Received 4 days of IV ceftriaxone. Received 4 days of IV metronidazole. Continue empiric IV antibiotics. Continue supplemental oxygen as needed maintain saturations greater than 89%. (Utilizes 2 L/min at home) Continue BiPAP nightly and as needed. Continue scheduled and as needed nebulizer treatments. Encourage pulmonary toilet. (2) Gram-negative bacteremia Is this a current diagnosis for this admission?: Yes Plan: Blood culture from admission growing Acinetobacter species. Repeat blood cultures negative. Day 5 empiric IV antibiotics. Day 1 IV meropenem. Received 1 day of IV cefepime. Received 4 days of IV ceftriaxone. Received 4 days of IV metronidazole. Continue empiric IV antibiotics. Follow-up repeat blood culture. Infectious disease specialist consulted for recommendation or length of therapy. (3) Acute CHF (congestive heart failure) Qualifiers: Heart failure type: combined systolic and diastolic Qualified Code(s): I50.41 - Acute combined systolic (congestive) and diastolic (congestive) heart failure Is this a current diagnosis for this admission?: Yes Plan: Improving. Compensated. Acute combined systolic and diastolic heart failure. Denies any chest pain. 09/22/2019. 2D echo left ventricular systolic function normal. LVEF 55 to 60%. Right ventricle moderately dilated. Moderate to severe pulmonary hypertension by echo. 10/30/2015. 2D echo left ventricular ejection fraction WNL. Grade 1/4 mild diastolic dysfunction. proBNP 29,900 up from baseline of 10,000. Continue strict in and out, IV diuretics, beta-blockers, will start on MOMO once kidney function stabilizes. (4) Aspiration pneumonia Qualifiers: Aspiration pneumonia type: due to gastric secretions Laterality: left Lung location: lower lobe of lung Qualified Code(s): J69.0 - Pneumonitis due to inhalation of food and vomit Is this a current diagnosis for this admission?: Yes Plan: Plan as per #1. (5) CKD (chronic kidney disease) stage 5, GFR less than 15 ml/min Is this a current diagnosis for this admission?: Yes Plan: Nonoliguric. Status post first hemodialysis 09/22/2019. Strict in and out, monitor electrolytes, monitor vitals, replace electrolytes as needed. Continue calcitriol, avoid nephrotoxic meds. (6) Diabetes Qualifiers: Diabetes mellitus type: type 2 Diabetes mellitus long-term insulin use: with terminal make up operator use Chronic kidney disease stage: stage 5, not on chronic dialysis Is this a current diagnosis for this admission?: Yes Plan: Controlled. Hemoglobin A1c 5.7 as of 2019. Diabetic diet. Sliding scale insulin. Accu-Cheks. Hypoglycemic protocol. Some home meds upon discharge. Outpatient PCP follow-up. Registered dietitian and prosthodontist/educator consulted. (7) Hypertension Qualifiers: Hypertension type: essential hypertension Qualified Code(s): I10 - Essential (primary) hypertension Is this a current diagnosis for this admission?: Yes Plan: Improving. Not optimized. Home medication regiment of amlodipine, metoprolol, clonidine, and hydralazine. Resume home meds. PRN IV hydralazine and beta-blockers. Cardiac diet. Outpatient PCP follow-up. (8) Anemia Qualifiers: Anemia type: due to chronic kidney disease Is this a current diagnosis for this admission?: Yes Plan: Worsening anemia. Likely combination of iron deficiency anemia anemia of chronic disease. Denies any easy bleeding, hematuria, hematochezia, melena, hemoptysis or hematemesis. Received 1 dose of Injectafer on 09/21/2019. Received erythropoietin during hemodialysis on 09/22/2019. Monitor H&H. Avoid transfusion if possible given patient is developing end- stage renal disease and may need kidney transplant in the future. Transfuse if symptomatic or hemoglobin drops below 7. Switch cefepime to meropenem. (9) Hyperkalemia Is this a current diagnosis for this admission?: Yes Plan: Resolved. Due to end-stage renal disease. Daily potassium level.
[2019-09-23] MEDS ORDERED: LISINOPRIL 5 MG TABLET PO SCH (10:00)
[2019-09-23] MEDS ORDERED: MEROPENEM 1 GM in NORMAL SALINE 50 ML IV SCH (14:00)
[2019-09-23 15:36] LABS: HEPATITIS C QUANTITATION HCV Not Detected IU/mL (.)
[2019-09-23] MEDS: MEROPENEM 500 MG in NORMAL SALINE 50 ML IV SCH (18:00)
[2019-09-23] MEDS: ATORVASTATIN CALCIUM 40 MG TABLET PO SCH (21:53)
[2019-09-23] MEDS: AMLODIPINE BESYLATE 10 MG TABLET PO SCH (21:56)
[2019-09-24] MEDS: PANTOPRAZOLE SODIUM 40 MG TABLET.DR PO SCH (05:43)
[2019-09-24] MEDS: HYDRALAZINE HCL 50 MG TABLET PO SCH ×3 (05:43→21:22)
[2019-09-24] MEDS: HEPARIN SOD (PORCINE) 5,000 UNIT/ML 1 ML VIAL SUBCUT SCH ×3 (05:44→21:21)
[2019-09-24 06:04] LABS: ABSOLUTE EOSINOPHILS # (AUTO) 0.1 10^3/uL (0.0-0.6); ABSOLUTE LYMPHOCYTES (AUTO) 0.4 10^3/uL (0.5-4.7); ABSOLUTE NEUT (AUTO) 5.6 10^3/uL (1.7-8.2); BASOPHILS % (AUTO) 0.5 % (0-2); EOSINOPHILS % (AUTO) 0.8 % (0-6); HEMATOCRIT 22.5 % (37.9-51.0); MEAN CORPUSCULAR HEMOGLOBIN 27.1 pg (27.0-33.4); MEAN CORPUSCULAR HGB CONC 32.3 g/dL (32.0-36.0); MEAN CORPUSCULAR VOLUME 84 fl (80-97); MONOCYTES % (AUTO) 14.2 % (3-13); PLATELET COUNT 330 10^3/uL (150-450); RED BLOOD COUNT 2.68 10^6/uL (4.35-5.55); RED CELL DISTRIBUTION WIDTH 17.6 % (11.5-14.0); SEGMENTED NEUTROPHILS % (AUTO) 78.5 % (42-78); TOTAL CELLS COUNTED % (AUTO) 100 %; WHITE BLOOD COUNT 7.2 10^3/uL (4.0-10.5)
[2019-09-24 06:08] LABS: HEMOGLOBIN 7.3 g/dL (13.5-17.0)
[2019-09-24 06:31] LABS: ANION GAP 7 (5-19); BLOOD UREA NITROGEN 63 mg/dL (7-20); CALCIUM 8.7 mg/dL (8.4-10.2); CARBON DIOXIDE 23 mmol/L (22-30); CHLORIDE 106 mmol/L (98-107); GLUCOSE 83 mg/dL (75-110); PHOSPHORUS 3.8 mg/dL (2.5-4.5); POTASSIUM 4.6 mmol/L (3.6-5.0)
[2019-09-24] MEDS: INSULIN LISPRO 100 UNIT/ML 3 ML VIAL SUBCUT SCH ×4 (08:22→22:38)
--- NOTE | 2019-09-24 09:09 | PDOC PROGRESS REPORT ---
Subjective Progress Note for:: 09/24/19 Subjective:: ESUTARDO HULL is a 64 year old male with a past medical history of CKD 4 (followed by Dr. Jade), hypertension, chronic respiratory failure (Home O2 @ 2lpm) diabetes, hyperlipidemia, sleep apnea, and obesity (home CPAP) who presented to the emergency department today via EMS from the [facility] where he was undergoing a colonoscopy had a desaturation event into the 70s requiring airway support with BVM. Two separate attempts were made to intubate the patient but were unsuccessful. Per surgical clinic staff, there was high suspicion for aspiration event. Fortunately, the patient's mentation improved; he became alert and was able to maintain his own airway, though with continued hypoxia. Evaluation in the emergency department revealed hypertension (182/84) tachypnea (RR 28), hypoxia on room air, leukocytosis (WBC is 10.8) baseline anemia (hemog lobin 9.4), SHI/CKD (Cr 7.37/BUN 81), and chest x-ray showing left lower lobe pneumonia. He was placed on BiPAP and provided IV Rocephin and metronidazole. He is referred to the hospitalist service for admission and management of the above-stated complaints and findings. 09/20/2019. Comfortably sitting with no apparent distress. Alert and oriented x3. Denies any fever, chills, nausea, vomiting, diarrhea, constipation or any urinary symptoms. P.o. tolerant. Having normal bowel and bladder movements. 09/21/2019. No acute events overnight. Comfortably stable no apparent distress. Shortness of breath improved, denies any fever, chills, nausea, vomiting, diarrhea, constipation or any urinary symptoms. Nonoliguric however no significant changes on his creatinine level, nephrology on board, for hemodialysis possibly tomorrow. 09/22/2019. No acute events overnight. Comfortably stable no apparent distress. Shortness of breath improving, endorses lower urine output than yesterday, de nies any chest pain, nausea, vomiting, diarrhea, constipation or any urinary symptoms. Scheduled for his hemodialysis today. 09/23/2019. No acute events overnight. Patient comfortably sitting on the edge of the bed in no apparent distress, stating that he is feeling much better today, lower extremity edema are improving, denies any shortness of breath, chest pain, nausea, vomiting, diarrhea, constipation or any urinary symptoms. 09/24/2019. No acute events overnight. Patient feeling much better compared to yesterday, denies any shortness of breath, lower extremity edema has improved significantly, patient resting in bed comfortably no apparent distress, alert and oriented and cooperative with physical examination, denies any fever, chills, nausea, vomiting, diarrhea, constipation or any urinary symptoms. Reason For Visit: ACUTE RESPIRATORY FAILURE, ASPIRATION PNA Physical Exam Vital Signs: Temp Pulse Resp BP Pulse Ox 97.8 F 74 18 147/67 H 100 09/24/19 07:00 09/24/19 07:00 09/24/19 07:00 09/24/19 07:00 09/24/19 07:00 Intake & Output 09/23/19 09/24/19 09/25/19 06:59 06:59 06:59 Intake Total 1455 1042 Output Total 4300 1000 Balance -2845 42 Weight 99.4 kg 99.4 kg General appearance: PRESENT: no acute distress, well-developed, well-nourished Head exam: PRESENT: atraumatic, normocephalic Respiratory exam: PRESENT: clear to auscultation kay. ABSENT: rales, rhonchi, wheezes Cardiovascular exam: PRESENT: RRR. ABSENT: diastolic murmur, rubs, systolic murmur GI/Abdominal exam: PRESENT: normal bowel sounds, soft. ABSENT: distended, guarding, mass, organolmegaly, rebound, tenderness Neurological exam: PRESENT: alert, awake, oriented to person, oriented to place, oriented to time, oriented to situation, CN II-XII grossly intact. ABSENT: motor sensory deficit Results Laboratory Results: 09/24/19 05:01 09/24/19 05:01 09/24/19 09/24/19 05:01 05:01 WBC 7.2 RBC 2.68 L Hgb 7.3 L Hct 22.5 L MCV 84 MCH 27.1 MCHC 32.3 RDW 17.6 H Plt Count 330 Seg Neutrophils % 78.5 H Sodium 135.6 L Potassium 4.6 Chloride 106 Carbon Dioxide 23 Anion Gap 7 BUN 63 H Creatinine 5.87 H Est GFR ( Amer) 12 L Glucose 83 Calcium 8.7 Phosphorus 3.8 Magnesium 1.9 09/19/19 09/19/19 12:19 12:19 Troponin I 0.030 NT-Pro-B Natriuret Pep [id number] H Impressions: Chest X-Ray 09/19/19 12:03 IMPRESSION: Left lower lobe pneumonia. Assessment and Plan - Diagnosis (1) Gram-negative bacteremia Is this a current diagnosis for this admission?: Yes Plan: Blood culture from admission growing Acinetobacter species. Repeat blood cultures negative. Day 6 IV antibiotics. Day 2 IV meropenem. Received 1 day of IV cefepime. Received 4 days of IV ceftriaxone. Received 4 days of IV metronidazole. Continue empiric IV antibiotics. Follow-up repeat blood culture. Infectious disease specialist consulted for recommendation or length of therapy. Possible discharge home once stricture disease is recommendation is available. (2) Acute respiratory failure with hypoxia Is this a current diagnosis for this admission?: Yes Plan: Significant improvement postdialysis. SPO2 WNL on 1 L nasal cannula. Most likely due to secondary to aspiration pneumonia complicated by underlying CHF and end-stage renal disease. Day 6 IV antibiotics. Day 2 IV meropenem. Received 1 day of IV cefepime. Received 4 days of IV ceftriaxone. Received 4 days of IV metronidazole. Continue empiric IV antibiotics. Continue supplemental oxygen as needed maintain saturations greater than 89%. (Utilizes 2 L/min at home) Continue BiPAP nightly and as needed. Continue scheduled and as needed nebulizer treatments. Encourage pulmonary toilet. (3) Anemia Qualifiers: Anemia type: due to chronic kidney disease Is this a current diagnosis for this admission?: Yes Plan: Hemoglobin is stable. Likely combination of iron deficiency anemia anemia of chronic disease. Denies any easy bleeding, hematuria, hematochezia, melena, hemoptysis or hematemesis. Received 1 dose of Injectafer on 09/21/2019. Received erythropoietin during hemodialysis on 09/22/2019. Monitor H&H. Avoid transfusion if possible given patient is developing end- stage renal disease and may need kidney transplant in the future. Transfuse if symptomatic or hemoglobin drops below 7. Switch cefepime to meropenem. (4) Acute CHF (congestive heart failure) Qualifiers: Heart failure type: combined systolic and diastolic Qualified Code(s): I50.41 - Acute combined systolic (congestive) and diastolic (congestive) heart failure Is this a current diagnosis for this admission?: Yes Plan: Improving. Compensated. Acute combined systolic and diastolic heart failure. Denies any chest pain. 09/22/2019. 2D echo left ventricular systolic function normal. LVEF 55 to 60%. Right ventricle moderately dilated. Moderate to severe pulmonary hypertension by echo. 10/30/2015. 2D echo left ventricular ejection fraction WNL. Grade 1/4 mild diastolic dysfunction. proBNP 29,900 up from baseline of 10,000. Continue strict in and out, IV diuretics, beta-blockers, will start on MOMO once kidney function stabilizes. (5) Aspiration pneumonia Qualifiers: Aspiration pneumonia type: due to gastric secretions Laterality: left Lung location: lower lobe of lung Qualified Code(s): J69.0 - Pneumonitis due to inhalation of food and vomit Is this a current diagnosis for this admission?: Yes Plan: Plan as per #1. (6) CKD (chronic kidney disease) stage 5, GFR less than 15 ml/min Is this a current diagnosis for this admission?: Yes Plan: Nonoliguric. Status post first hemodialysis 09/22/2019. Strict in and out, monitor electrolytes, monitor vitals, replace electrolytes as needed. Continue calcitriol, avoid nephrotoxic meds. (7) Diabetes Qualifiers: Diabetes mellitus type: type 2 Diabetes mellitus care home insulin use: with care home use Chronic kidney disease stage: stage 5, not on chronic dialysis Is this a current diagnosis for this admission?: Yes Plan: Controlled. Hemoglobin A1c 5.7 as of 2019. Diabetic diet. Sliding scale insulin. Accu-Cheks. Hypoglycemic protocol. Some home meds upon discharge. Outpatient PCP follow-up. Registered dietitian and merchandising intern consulted. (8) Hypertension Qualifiers: Hypertension type: essential hypertension Qualified Code(s): I10 - Essential (primary) hypertension Is this a current diagnosis for this admission?: Yes Plan: Improving. Not optimized. Home medication regiment of amlodipine, metoprolol, clonidine, and hydralazine. Resume home meds. PRN IV hydralazine and beta-blockers. Cardiac diet. Outpatient PCP follow-up. (9) Hyperkalemia Is this a current diagnosis for this admission?: Yes Plan: Resolved. Due to end-stage renal disease. Daily potassium level.
[2019-09-24] MEDS: FLUTICASONE NASAL SPRAY 50 MCG/SPRY 120 SPRAY/16 GM NASL SCH (09:58)
[2019-09-24] MEDS: FLUTICASONE PROPIONATE HFA 110 MCG/PUFF 12 GM MDI IH SCH ×2 (09:58→21:20)
[2019-09-24] MEDS: CLONIDINE HCL 0.1 MG TABLET PO SCH ×2 (09:58→21:23)
[2019-09-24] MEDS: METOPROLOL TARTRATE 50 MG TABLET PO SCH ×2 (09:59→21:23)
[2019-09-24] MEDS: DOCUSATE SODIUM 100 MG CAPSULE PO SCH (09:59)
[2019-09-24] MEDS: CETIRIZINE 10 MG TABLET PO SCH (09:59)
[2019-09-24] MEDS: CALCITRIOL 0.25 MCG CAPSULE PO SCH (09:59)
[2019-09-24] MEDS: FUROSEMIDE 40 MG TABLET PO SCH ×2 (09:59→17:26)
[2019-09-24] MEDS: GUAIFENESIN 600 MG TABLET.SA PO SCH ×2 (09:59→21:22)
[2019-09-24] MEDS: MEROPENEM 500 MG in NORMAL SALINE 50 ML IV SCH (17:26)
[2019-09-24] MEDS: ATORVASTATIN CALCIUM 40 MG TABLET PO SCH (21:23)
[2019-09-24] MEDS: AMLODIPINE BESYLATE 10 MG TABLET PO SCH (21:23)
[2019-09-25] MEDS ORDERED: EPOETIN ALFA-EPBX 2,000 UNIT, EPOETIN ALFA-EPBX 3,000 UNIT, EPOETIN ALFA-EPBX 20,000 UN... IV PRN ×4 (05:00)
[2019-09-25] MEDS: HYDRALAZINE HCL 50 MG TABLET PO SCH ×3 (05:50→21:01)
[2019-09-25] MEDS: PANTOPRAZOLE SODIUM 40 MG TABLET.DR PO SCH (05:50)
[2019-09-25] MEDS: HEPARIN SOD (PORCINE) 5,000 UNIT/ML 1 ML VIAL SUBCUT SCH ×3 (05:51→21:04)
[2019-09-25 05:53] LABS: HEMATOCRIT 22.5 % (37.9-51.0); MEAN CORPUSCULAR HGB CONC 32.1 g/dL (32.0-36.0); MEAN CORPUSCULAR VOLUME 84 fl (80-97); PLATELET COUNT 350 10^3/uL (150-450); RED BLOOD COUNT 2.68 10^6/uL (4.35-5.55); RED CELL DISTRIBUTION WIDTH 17.4 % (11.5-14.0); WHITE BLOOD COUNT 7.3 10^3/uL (4.0-10.5)
[2019-09-25 05:56] LABS: HEMOGLOBIN 7.2 g/dL (13.5-17.0)
[2019-09-25 06:22] LABS: ANION GAP 8 (5-19); BLOOD UREA NITROGEN 65 mg/dL (7-20); CALCIUM 8.9 mg/dL (8.4-10.2); CARBON DIOXIDE 22 mmol/L (22-30); CHLORIDE 106 mmol/L (98-107); GLUCOSE 92 mg/dL (75-110); PHOSPHORUS 4.1 mg/dL (2.5-4.5); POTASSIUM 4.7 mmol/L (3.6-5.0)
[2019-09-25] MEDS: INSULIN LISPRO 100 UNIT/ML 3 ML VIAL SUBCUT SCH ×4 (07:59→22:00)
[2019-09-25] MEDS: GUAIFENESIN 600 MG TABLET.SA PO SCH ×2 (09:38→20:59)
[2019-09-25] MEDS: CLONIDINE HCL 0.1 MG TABLET PO SCH ×2 (09:38→21:01)
[2019-09-25] MEDS: CALCITRIOL 0.25 MCG CAPSULE PO SCH (09:39)
[2019-09-25] MEDS: DOCUSATE SODIUM 100 MG CAPSULE PO SCH (09:39)
[2019-09-25] MEDS: CETIRIZINE 10 MG TABLET PO SCH (09:39)
[2019-09-25] MEDS: FLUTICASONE PROPIONATE HFA 110 MCG/PUFF 12 GM MDI IH SCH ×2 (09:39→22:00)
[2019-09-25] MEDS: FUROSEMIDE 40 MG TABLET PO SCH ×2 (09:39→17:52)
[2019-09-25] MEDS: METOPROLOL TARTRATE 50 MG TABLET PO SCH ×2 (09:39→21:00)
[2019-09-25] MEDS: FLUTICASONE NASAL SPRAY 50 MCG/SPRY 120 SPRAY/16 GM NASL SCH (09:39)
[2019-09-25] MEDS ORDERED: EPOETIN ALFA-EPBX 40,000 UNIT/ML VIAL (RENAL) SUBCUT ONE (12:00)
[2019-09-25] MEDS: FERRIC CARBOXYMALTOSE 750 MG in NORMAL SALINE 100 ML IV ONE ×2 (12:56→13:35)
--- NOTE | 2019-09-25 13:34 | PDOC CONSULTATION ---
Consultation Consult Date: 09/25/19 Attending physician:: DEANNA JO Provider Consulted: CHIQUI OSWALD Consult reason:: Permacatheter placement History of Present Illness Admission Date/PCP: 09/19/19 13:58 KINGSLEY KENNY PA-C History of Present Illness: ESTUARDO HULL is a 64 year old male [place]ro[place] male with a history of a stage V kidney disease, followed by Drs. Jade and Michael is hospitalized for exacerbation of volume overload, mild uremia. Patient had according to his history a left arm AV fistula created in [place] over a year ago. It has never been interrogated, investigated or used. However today the decision was made to attempt dialysis through the fistula, however the puncture was not possible and the patient sustained extravasation and ecchymosis. Dialysis was never started. Dr. Jo has requested a permacatheter. Past Medical History Cardiac Medical History: Reports: Hyperlipidema, Hypertension Denies: Myocardial Infarction Pulmonary Medical History: Reports: Asthma EENT Medical History: Reports: None Neurological Medical History: Reports: None Endocrine Medical History: Reports: Diabetes Mellitus Type 2 - IDDM, Obesity Denies: Hypothyroidism Renal/ Medical History: Reports: Chronic Kidney Disease Malignancy Medical History: Reports: None GI Medical History: Reports: Gastroesophageal Reflux Disease Musculoskeltal Medical History: Reports: None Skin Medical History: Reports: None Psychiatric Medical History: Denies: Depression Traumatic Medical History: Reports: None Hematology: Reports: Anemia Infectious Medical History: Reports: None Past Surgical History Past Surgical History: AV fistula creation 2019 left upper extremity Social History Lives with: Family Smoking Status: Never Smoker Number of Years Smokin Frequency of Alcohol Use: Occasional Hx Recreational Drug Use: No Drugs: None Hx Prescription Drug Abuse: No - Advance Directive Resuscitation Status: Do Not Intubate Family History Family History: None, Reviewed & Not Pertinent, Hypertension. denies: CAD, CVA Parental Family History Reviewed: No Children Family History Reviewed: No Sibling(s) Family History Reviewed.: No Medication/Allergy Home Medications: Hum Insulin NPH/Reg Insulin Hm [Insulin 70-30 (NPH/Reg) 100 unit/mL] 7 unit SUBCUT QPM 10/28/15 Hum Insulin NPH/Reg Insulin Hm [Insulin 70-30 (NPH/Reg) 100 unit/mL] 15 unit SUBCUT QAM 10/28/15 Hydralazine HCl 50 mg PO Q8 #90 tablet 10/31/15 Metoprolol Succinate [Toprol Xl 50 mg Tab.sr] 100 mg PO BID #60 tab.sr.24h 10/31/15 Amlodipine Besylate [Norvasc 10 mg Tablet] 10 mg PO DAILY 09/19/19 Atorvastatin Calcium [Lipitor 20 mg Tablet] 20 mg PO DAILY 09/19/19 Calcitriol [Rocaltrol 0.25 mcg Capsule] 0.25 mcg PO DAILY 09/19/19 Cetirizine HCl 10 mg PO Q48HP PRN 09/19/19 Clonidine HCl [Catapres 0.1 mg Tablet] 0.1 mg PO BID 09/19/19 Flovent Hfa 220 Mcg 1 puff IH BID 09/19/19 Fluticasone Propionate [Flonase Nasal [place] 50 Mcg/[place] 16 gm] 1 applic NASL DAILY 09/19/19 Levofloxacin [Levaquin 500 mg Tablet] 500 mg PO DAILY 09/19/19 Omeprazole 40 mg PO DAILY 09/19/19 Vit B Comp No.3/Folic/C/Biotin [Celina-Kerri Rx Tablet] 1 each PO DAILY 09/19/19 Allergies/Adverse Reactions: No Known Allergies Allergy (Verified 09/14/15 08:13) Review of Systems Constitutional: PRESENT: as per HPI Eyes: PRESENT: other Ears: ABSENT: hearing changes Cardiovascular: PRESENT: other - Shortness of breath, orthopnea Genitourinary: PRESENT: as per HPI Physical Exam Vital Signs: Temp Pulse Resp BP Pulse Ox 97.7 F 78 18 138/58 H 100 09/25/19 08:33 09/25/19 08:33 09/25/19 08:33 09/25/19 08:33 09/25/19 08:33 Intake & Output 09/24/19 09/25/19 09/26/19 06:59 06:59 06:59 Intake Total 1042 1255 Output Total 1000 550 Balance 42 705 Weight 99.4 kg 99.2 kg General appearance: PRESENT: no acute distress Head exam: PRESENT: normocephalic Mouth exam: PRESENT: dry mucosa Neck exam: PRESENT: full ROM Respiratory exam: PRESENT: crackles Cardiovascular exam: PRESENT: RRR Pulses: PRESENT: normal carotid pulses, normal radial pulses, normal femoral pulses GI/Abdominal exam: PRESENT: soft Rectal exam: PRESENT: deferred Extremities exam: PRESENT: other - Left upper extremities abdomen. There is a palpable AV fistula in the left upper arm. I cannot appreciate the anatomic details however. There is diffuse ecchymosis and a subcutaneous fullness consistent with extravasation but not localized Neurological exam: PRESENT: oriented to person, oriented to place, oriented to time, oriented to situation Psychiatric exam: PRESENT: appropriate affect Skin exam: PRESENT: dry Results Laboratory Results: 09/25/19 05:24 09/25/19 05:24 09/25/19 09/25/19 05:24 05:24 WBC 7.3 RBC 2.68 L Hgb 7.2 L Hct 22.5 L MCV 84 MCH 27.0 MCHC 32.1 RDW 17.4 H Plt Count 350 Sodium 136.3 L Potassium 4.7 Chloride 106 Carbon Dioxide 22 Anion Gap 8 BUN 65 H Creatinine 6.22 H Est GFR ( Amer) 11 L Glucose 92 Calcium 8.9 Phosphorus 4.1 Magnesium 1.9 09/19/19 13:30 Blood Blood Culture - Final NO GROWTH IN 5 DAYS 09/19/19 09/19/19 12:19 12:19 Troponin I 0.030 NT-Pro-B Natriuret Pep [id number] H Impressions: Chest X-Ray 09/19/19 12:03 IMPRESSION: Left lower lobe pneumonia. Assessment & Plan - Diagnosis (1) SHI (acute kidney injury) Is this a current diagnosis for this admission?: Yes Plan: Impression: Exacerbation of chronic stage IV kidney disease with mild uremia, volume overload. Patient will require dialysis in the near future. Left arm AV fistula patent however on accessible currently due to blood extravasation. Recommendations: 1. Stay out of left AV fistula until ecchymosis and extravasation resolve; we may bring patient back to [facility], map AV fistula with ultrasound, and marked arm to facilitate future access 2. I spoke with Dr. Jo, as well as patient about insertion of permacatheter which I believe is appropriate for the interim. We will set patient up to have the procedure performed later today. We will keep him n.p.o. and holding Lovenox. 3. I reviewed the mechanics of the procedure, expectations, as well as discussion of the risks benefits and alternatives. I believe the patient understands and agrees to proceed. (2) Acute CHF (congestive heart failure) Qualifiers: Heart failure type: combined systolic and diastolic Qualified Code(s): I50.41 - Acute combined systolic (congestive) and diastolic (congestive) heart f ailure Is this a current diagnosis for this admission?: Yes (3) Diabetes Qualifiers: Diabetes mellitus type: type 2 Diabetes mellitus jail insulin use: with manager terminal use Chronic kidney disease stage: stage 5, not on chronic dialysis Is this a current diagnosis for this admission?: Yes - Time Time Spent: 30 to 50 Minutes Smoking Cessation Education: 3 to 10 minutes Medications reviewed and adjusted accordingly: Yes Anticipated discharge: Home
[2019-09-25] MEDS ORDERED: KETAMINE HCL INJ 500 MG/10 ML VIAL ONE (13:42)
[2019-09-25] MEDS ORDERED: MIDAZOLAM 2 MG/2 ML INJ ONE (13:43)
[2019-09-25] MEDS ORDERED: PROPOFOL INJ 200 MG/20 ML VIAL IV ONE (13:43)
[2019-09-25] MEDS ORDERED: FENTANYL CITRATE INJ/PF 100 MCG/2 ML AMPUL ONE (13:43)
[2019-09-25] MEDS ORDERED: FERRIC CARBOXYMALTOSE 750 MG in NORMAL SALINE 100 ML IV ONE (14:15)
--- NOTE | 2019-09-25 14:41 | PDOC PROGRESS REPORT ---
Subjective Progress Note for:: 09/25/19 Subjective:: ESTUARDO HULL is a 64 year old male with a past medical history of CKD 4 (followed by Dr. Jade), hypertension, chronic respiratory failure (Home O2 @ 2lpm) diabetes, hyperlipidemia, sleep apnea, and obesity (home CPAP) who was admitted for aspiration pneumonia. Patient was seen on afternoon rounds. He was found resting in bed, comfortably, on supplemental oxygen at 2lpm; patient reports he is on his baseline oxygen requirement. He is very frustrated at AV fistula malfunction today. Plan to go to the OR for PermCath placement this afternoon. Otherwise, he states he is feeling well. He denies fever, chest pain, dyspnea, orthopnea, abdominal pain, nausea vom iting. He reports that his peripheral edema significantly improved. No other questions or concerns. No concerns per nursing. Reason For Visit: ACUTE RESPIRATORY FAILURE, ASPIRATION PNA Physical Exam Vital Signs: Temp Pulse Resp BP Pulse Ox 97.7 F 64 18 132/64 H 100 09/25/19 11:50 09/25/19 11:50 09/25/19 11:50 09/25/19 11:50 09/25/19 11:50 Intake & Output 09/24/19 09/25/19 09/26/19 06:59 06:59 06:59 Intake Total 1042 1255 Output Total 1000 550 Balance 42 705 Weight 99.4 kg 99.2 kg General appearance: PRESENT: no acute distress, obese, well-developed, well- nourished Head exam: PRESENT: atraumatic, normocephalic Eye exam: PRESENT: conjunctiva pink, EOMI, PERRLA. ABSENT: scleral icterus Mouth exam: PRESENT: moist, tongue midline Respiratory exam: PRESENT: clear to auscultation kay, symmetrical, unlabored, other - Baseline oxygen requirement. ABSENT: rales, rhonchi, wheezes Cardiovascular exam: PRESENT: RRR. ABSENT: diastolic murmur, rubs, systolic murmur Pulses: PRESENT: normal dorsalis pedis pul Vascular exam: PRESENT: normal capillary refill GI/Abdominal exam: PRESENT: normal bowel sounds, soft. ABSENT: distended, guarding, mass, organolmegaly, rebound, tenderness Rectal exam: PRESENT: deferred Gentrourinary exam: PRESENT: indwelling catheter Extremities exam: PRESENT: full ROM. ABSENT: calf tenderness, clubbing, pedal edema Musculoskeletal exam: PRESENT: ambulatory Neurological exam: PRESENT: alert, awake, oriented to person, oriented to place, oriented to time, oriented to situation, CN II-XII grossly intact. ABSENT: motor sensory deficit Psychiatric exam: PRESENT: agitated, appropriate affect, normal mood. ABSENT: homicidal ideation, suicidal ideation Skin exam: PRESENT: dry, intact, warm. ABSENT: cyanosis, rash Results Laboratory Results: 09/25/19 05:24 09/25/19 05:24 09/25/19 09/25/19 05:24 05:24 WBC 7.3 RBC 2.68 L Hgb 7.2 L Hct 22.5 L MCV 84 MCH 27.0 MCHC 32.1 RDW 17.4 H Plt Count 350 Sodium 136.3 L Potassium 4.7 Chloride 106 Carbon Dioxide 22 Anion Gap 8 BUN 65 H Creatinine 6.22 H Est GFR ( Amer) 11 L Glucose 92 Calcium 8.9 Phosphorus 4.1 Magnesium 1.9 09/19/19 13:30 Blood Blood Culture - Final NO GROWTH IN 5 DAYS 09/19/19 09/19/19 12:19 12:19 Troponin I 0.030 NT-Pro-B Natriuret Pep 36233 H Impressions: Chest X-Ray 09/19/19 12:03 IMPRESSION: Left lower lobe pneumonia. Assessment and Plan - Diagnosis (1) Gram-negative bacteremia Is this a current diagnosis for this admission?: Yes Plan: Blood culture from admission growing Acinetobacter species. Repeat blood cultures negative. Day 7 IV antibiotics. Day 3 IV meropenem. Received 1 day of IV cefepime. Received 4 days of IV ceftriaxone. Received 4 days of IV metronidazole. Continue empiric IV antibiotics. Follow-up repeat blood culture. Infectious disease specialist consulted for recommendation or length of therapy. (2) Acute respiratory failure with hypoxia Is this a current diagnosis for this admission?: Yes Plan: Acute exacerbation has resolved; now on baseline oxygen requirement. Significant improvement postdialysis. Most likely due to secondary to aspiration pneumonia complicated by underlying CHF and end-stage renal disease. Day 7 IV antibiotics. Day 3 IV meropenem. Received 1 day of IV cefepime. Received 4 days of IV ceftriaxone. Received 4 days of IV metronidazole. Continue empiric IV antibiotics. Continue supplemental oxygen as needed maintain saturations greater than 89%. (Utilizes 2 L/min at home) Continue BiPAP nightly and as needed. Continue scheduled and as needed nebulizer treatments. Encourage pulmonary toilet. (3) Aspiration pneumonia Qualifiers: Aspiration pneumonia type: due to gastric secretions Laterality: left Lung location: lower lobe of lung Qualified Code(s): J69.0 - Pneumonitis due to inhalation of food and vomit Is this a current diagnosis for this admission?: Yes Plan: Plan as per #1. (4) Hypertension Qualifiers: Hypertension type: essential hypertension Qualified Code(s): I10 - Essential (primary) hypertension Is this a current diagnosis for this admission?: Yes Plan: Improving. Home medication regiment of amlodipine, metoprolol, clonidine, and hydralazine. PRN IV hydralazine and beta-blockers. Cardiac diet. Outpatient PCP follow-up. 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 Hemoglobin A1c 5.7 as of 2019. Diabetic diet. Sliding scale insulin. Accu-Cheks. Hypoglycemic protocol. Some home meds upon discharge. Registered dietitian and informatics educator consulted. Outpatient PCP follow-up. (6) CKD (chronic kidney disease) stage 5, GFR less than 15 ml/min Is this a current diagnosis for this admission?: Yes Plan: Nonoliguric. Status post first hemodialysis 09/22/2019. Strict in and out, monitor electrolytes, monitor vitals, replace electrolytes as needed. Continue calcitriol, avoid nephrotoxic meds. PermCath placement today r/t AV fistula malfunction. Dialysis per Nephrology's expertise. (7) Acute CHF (congestive heart failure) Qualifiers: Heart failure type: combined systolic and diastolic Qualified Code(s): I50.41 - Acute combined systolic (congestive) and diastolic (congestive) heart failure Is this a current diagnosis for this admission?: Yes Plan: Acute exacerbation has resolved; now compensated. Acute combined systolic and diastolic heart failure. Denies any chest pain. proBNP 29,900 up from baseline of 10,000. 09/22/2019. 2D echo left ventricular systolic function normal. LVEF 55 to 60%. Right ventricle moderately dilated. Moderate to severe pulmonary hypertension by echo. 10/30/2015. 2D echo left ventricular ejection fraction WNL. Grade 1/4 mild diastolic dysfunction. Resumed home antihypertensive regiment of metoprolol, hydralazine, clonidine, amlodipine. Continue home dose atorvastatin. Consider start of MOMO once kidney function has stabilized. Continue strict I&O Cardiac diet. (8) Anemia Qualifiers: Anemia type: due to chronic kidney disease Is this a current diagnosis for this admission?: Yes Plan: Hemoglobin is stable; ~7.5. Likely combination of iron deficiency anemia anemia of chronic disease. Denies any easy bleeding, hematuria, hematochezia, melena, hemoptysis or hematemesis. Received 1 dose of Injectafer on 09/21/2019. Received erythropoietin during hemodialysis on 09/22/2019. Monitor H&H. Avoid transfusion if possible given patient is developing end-stage renal disease and may need kidney transplant in the future. Transfuse if symptomatic or hemoglobin drops below 7 (9) Hyperkalemia Is this a current diagnosis for this admission?: Yes Plan: Resolved. Due to end-stage renal disease. Daily potassium level. - Time Time Spent with patient: 35 or more minutes Medications reviewed and adjusted accordingly: Yes Anticipated discharge: Home Within: within 48 hours
[2019-09-25] MEDS ORDERED: LIDOCAINE 1% INJ-PF (10 MG/ML) 30 ML SDV ONE (15:16)
[2019-09-25] MEDS ORDERED: CEFAZOLIN INJ 1 GM VIAL ONE (15:52)
[2019-09-25] MEDS ORDERED: FENTANYL CITRATE INJ/PF 100 MCG/2 ML AMPUL IV PRN ×3 (16:10)
[2019-09-25] MEDS ORDERED: MEPERIDINE HCL/PF INJ 25 MG/1 ML DISP.SYRIN IV PRN (16:10)
[2019-09-25] MEDS ORDERED: DIPHENHYDRAMINE HCL 50 MG/ML VIAL IV PRN (16:10)
[2019-09-25] MEDS ORDERED: PROMETHAZINE HCL INJ 25 MG/1 ML VIAL IV PRN ×2 (16:10)
[2019-09-25] MEDS ORDERED: HEPARIN SOD (PORCINE) 5,000 UNIT/ML 1 ML VIAL ONE (16:18)
--- NOTE | 2019-09-25 16:32 | Operative Report ---
Operative Report DATE OF SURGERY: 09/25/19 PREOPERATIVE DIAGNOSIS: 1. End-stage renal failure. 2. Volume overload, CHF POSTOPERATIVE DIAGNOSIS: Same OPERATION: 1. Ultrasound directed insertion of a 28 cm, 15.5 [place] dual-lumen permacatheter right internal jugular vein. 2. Interpretation of intraoperative fluoroscopy SURGEON: CHIQUI OSWALD ANESTHESIA: LMAC TISSUE REMOVED OR ALTERED: None COMPLICATIONS: None ESTIMATED BLOOD LOSS: 20 cc INTRAOPERATIVE FINDINGS: See below PROCEDURE: Patient was taken from the holding her to the main operating room where is placed spine position, arms tucked, neck exposed, the neck and chest wall prepped and draped sterile fashion Surgical plan and surgical timeout were conducted. Focused ultrasound placed on the right neck in the right internal jugular vein marked. The skin overlying the right internal jugular vein just above the clavicle was anesthetized 1% plain lidocaine. A 15 blade was used to make a small incision in the neck skin, using ultrasound real-time as a guide, a micro needle and wire were threaded into the right internal jugular vein. A suitable site for of the PermCath was chosen in the right subclavian position. The skin and communicating subcutaneous tissue was anesthetized 1% plain lidocaine. A small incision was made in the skin and the subcutaneous area, and hemostat used to open up the hole. A 28 cm cuff to tip permacatheter was threaded between the 2 incisions. We now switched to the microwire over to a conventional 0.030 inch guidewire all under fluoroscopic guidance. Then a series of dilator were threaded over the guidewire under fluoroscopic guidance without difficulty. The final dilator and introducer sheath were threaded over the guidewire, the wire and final dilator removed, and the catheter threaded into the right internal jugular vein, and the strip away sheath removed uneventfully. Venous pressure was elevated consistent with CHF. The blood was not well oxygenated, and it was nonpulsatile. Our level of confidence that we are in the internal jugular vein was high. Furthermore ultrasound demonstrated wire and catheter tracking into the right side of the chest. The tip of the catheter was now in the SVC right atrial junction. There was no kinking of the catheter. We aspirated and flushed the catheter several times with dilute heparinized saline. We felt the operation was complete. Sponge and counts are correct. Catheter was secured at multiple sites with 2-0 Prolene suture Biopatch and sterile dressing applied at the exit site. The initial stick site of the neck was closed with a 3-0 Vicryl suture and benzoin and Steri-Strips. The patient tolerated the procedure well, taken to recovery room stable condition.
--- NOTE | 2019-09-25 20:33 | Progress Note ---
Provider Note Provider Note: [facility] ID Telephone Advice Consultation Chart reviewed. Patient is a 64-year-old man with CKD stage 4-5 who was admi tted due to respiratory failure. Patient was getting a colonoscopy on 09/18 and desaturated as low as 70s. He recovered but was taken to the ED for evaluation after failed intubation attempts. He was started on a BiPAP and recovered. His blood cultures were positive 1 set with Acinetobacter spp. He was afebrile and HD stable. Mild leukocytosis. BNP above 29k, his potassium was elevated as well. He was evaluated by nephrology for HD. He had an AVF done in 2019. HD was attempted throught eh AVF but it seemed to be stenotic for which he needed a perm cath. New blood cultures on 09/21 remain negative. CXR with evidence of LLL pneumonia. Patient received 1 day of cefepime and he is currently on day 3 of meropenem. TTE is negative for valvular vegetations but there is moderate to severe pulmonary hypertension. ID consulted for recommendations. PMH: CKD stage 5 Hypertension DM2 Hypercholesterolemia [place] Obesity PSH: AVF 2018 Allergies: No Known Allergies Allergy (Verified 09/14/15 08:13) Medications: Hum Insulin NPH/Reg Insulin Hm [Insulin 70-30 (NPH/Reg) 100 unit/mL] 7 unit SUBCUT QPM 10/28/15 Hum Insulin NPH/Reg Insulin Hm [Insulin 70-30 (NPH/Reg) 100 unit/mL] 15 unit SUBCUT QAM 10/28/15 Amlodipine Besylate [Norvasc 10 mg Tablet] 10 mg PO DAILY 09/19/19 Atorvastatin Calcium [Lipitor 20 mg Tablet] 20 mg PO DAILY 09/19/19 Calcitriol [Rocaltrol 0.25 mcg Capsule] 0.25 mcg PO DAILY 09/19/19 Cetirizine HCl 10 mg PO Q48HP PRN 09/19/19 Clonidine HCl [Catapres 0.1 mg Tablet] 0.1 mg PO BID 09/19/19 Flovent Hfa 220 Mcg 1 puff IH BID 09/19/19 Fluticasone Propionate [Flonase Nasal [place] 50 Mcg/[place] 16 gm] 1 applic NASL DAILY 09/19/19 Levofloxacin [Levaquin 500 mg Tablet] 500 mg PO DAILY 09/19/19 Omeprazole 40 mg PO DAILY 09/19/19 Vit B Comp No.3/Folic/C/Biotin [Celina-Kerri Rx Tablet] 1 each PO DAILY 09/19/19 Vital Signs: Temp Pulse Resp BP Pulse Ox 97.9 F 68 12 175/69 H 100 09/25/19 16:56 09/25/19 16:56 09/25/19 16:56 09/25/19 16:56 09/25/19 16:56 Intake & Output 09/24/19 09/25/19 09/26/19 06:59 06:59 06:59 Intake Total 1042 1255 1290 Output Total 1000 550 210 Balance 42 705 1080 Weight 99.4 kg 99.2 kg Weight/Height Weight 99.2 kg Height 5 ft 10 in Laboratories: 09/25/19 05:24 09/25/19 05:24 MCV 84 fl (80-97) 09/25/19 05:24 MCH 27.0 pg (27.0-33.4) 09/25/19 05:24 MCHC 32.1 g/dL (32.0-36.0) 09/25/19 05:24 RDW 17.4 % (11.5-14.0) H 09/25/19 05:24 Seg Neutrophils % 78.5 % (42-78) H 09/24/19 05:01 Retic Count (auto) 1.38 % (0.66-2.85) 09/21/19 05:46 Chloride 106 mmol/L (98-107) 09/25/19 05:24 Carbon Dioxide 22 mmol/L (22-30) 09/25/19 05:24 Anion Gap 8 (5-19) 09/25/19 05:24 Est GFR ( Amer) 11 (>60) L 09/25/19 05:24 Glucose 92 mg/dL (75-110) 09/25/19 05:24 Calcium 8.9 mg/dL (8.4-10.2) 09/25/19 05:24 Phosphorus 4.1 mg/dL (2.5-4.5) 09/25/19 05:24 Magnesium 1.9 mg/dL (1.6-2.3) 09/25/19 05:24 Iron 22.5 ug/dL (49-181) L 09/21/19 05:46 TIBC 259 ug/dL (250-450) 09/21/19 05:46 % Saturation 9 % 09/21/19 05:46 Transferrin 177.77 mg/dL (206.00-381.00) L 09/21/19 05:46 Ferritin 62.70 ng/mL (17.9-464.0) 09/21/19 05:46 Total Bilirubin 0.8 mg/dL (0.2-1.3) 09/19/19 12:19 AST 20 U/L (17-59) 09/19/19 12:19 Alkaline Phosphatase 49 U/L (38-126) 09/19/19 12:19 Total Protein 8.0 g/dL (6.3-8.2) 09/19/19 12:19 Albumin 3.7 g/dL (3.5-5.0) 09/19/19 12:19 Vitamin B12 635.0 pg/mL (239-931) 09/21/19 05:46 Folate 18.50 ng/mL (>2.76) 09/21/19 05:46 PTH Intact 84.3 pg/mL (10.0-65.0) H 09/22/19 06:45 09/19/19 09/19/19 12:19 12:19 Troponin I 0.030 NT-Pro-B Natriuret Pep 60860 H Microbiology: Blood culture: 09/19/19 Acinetobacter spp 09/22/19 NGTD Radiology: Chest X-Ray 09/19/19 12:03 IMPRESSION: Left lower lobe pneumonia. Assessment and Recommendations: Patient with ESRD on HD with Acinetobacter spp in the setting of LLL pneumonia due to aspiration. Patient has been improving, afebrile now, HD stable, no leukocytosis. New blood cultures negative. He has receive 4 days of adequate antibiotic coverage. For GNR bacteremia a total of 10 days is acceptable. Will recommend to continue meropenem and transition to ciprofloxacin 250 mg po daily when ready to be discharged home to complete a total of 10 days (including cefepime and meropenem). Avoid any divalent cations that can interfere with c iprofloxacin absorption. Please call if questions. Freida Bauman MD [facility] ID [phone]
[2019-09-25] MEDS: MEROPENEM 500 MG in NORMAL SALINE 50 ML IV SCH (20:56)
[2019-09-25] MEDS: ATORVASTATIN CALCIUM 40 MG TABLET PO SCH (20:59)
[2019-09-25] MEDS: AMLODIPINE BESYLATE 10 MG TABLET PO SCH (21:02)
--- NOTE | 2019-09-25 21:55 | PDOC PROGRESS REPORT ---
Subjective Progress Note for:: 09/25/19 Subjective:: Earlier this morning we attempted to start dialysis on the patient again today was unsuccessful after about 15 minutes on the machine. His AV fistula got infiltrated and unfortunately her dialysis nurse was unable to cannulate his access anymore so we need to hold dialysis for today. Patient states that he feels fine. He denies any shortness of breath, cough, nausea no vomiting. His appetite is fair but not the greatest. His urine output has decreased somehow at 550 mL for the past 24 hours and is been most a liter 2 days ago. He thinks that his swelling in his legs and arms slightly better compared to when he came in. Reason For Visit: ACUTE RESPIRATORY FAILURE, ASPIRATION PNA Physical Exam Vital Signs: Temp Pulse Resp BP Pulse Ox 97.7 F 78 18 138/58 H 100 09/25/19 08:33 09/25/19 08:33 09/25/19 08:33 09/25/19 08:33 09/25/19 08:33 Intake & Output 09/24/19 09/25/19 09/26/19 06:59 06:59 06:59 Intake Total 1042 1255 Output Total 1000 550 Balance 42 705 Weight 99.4 kg 99.2 kg Exam: General appearance: PRESENT: no acute distress, cooperative, well-developed, well-nourished Head exam: PRESENT: atraumatic, normocephalic Eye exam: PRESENT: conjunctiva slightly pale, PERRLA. ABSENT: scleral icterus Neck exam: ABSENT: JVD Respiratory exam: PRESENT: Normal breath sounds. ABSENT: crackles, rales, rhonchi, unlabored, wheezes Cardiovascular exam: PRESENT: Regular rate rhythm -+S1, +S2. ABSENT: diastolic murmur, systolic murmur GI/Abdominal exam: PRESENT: normal bowel sounds, soft. Mild subcutaneous edema ABSENT: guarding, mass, tenderness Extremities exam: Significant grade 2 lower extremity bilateral pitting edema; his AV fistula has a good thrill but is not well-developed Neurological exam: PRESENT: alert, awake, oriented to person, place and time. Skin exam: PRESENT: dry, warm, Cardiovascular exam: PRESENT: +S1, +S2, systolic murmur GI/Abdominal exam: PRESENT: normal bowel sounds, soft. ABSENT: organomegaly, tenderness Results Laboratory Results: 09/25/19 05:24 09/25/19 05:24 09/25/19 09/25/19 05:24 05:24 WBC 7.3 RBC 2.68 L Hgb 7.2 L Hct 22.5 L MCV 84 MCH 27.0 MCHC 32.1 RDW 17.4 H Plt Count 350 Sodium 136.3 L Potassium 4.7 Chloride 106 Carbon Dioxide 22 Anion Gap 8 BUN 65 H Creatinine 6.22 H Est GFR ( Amer) 11 L Glucose 92 Calcium 8.9 Phosphorus 4.1 Magnesium 1.9 09/19/19 13:30 Blood Blood Culture - Final NO GROWTH IN 5 DAYS 09/19/19 09/19/19 12:19 12:19 Troponin I 0.030 NT-Pro-B Natriuret Pep 03165 H Impressions: Chest X-Ray 09/19/19 12:03 IMPRESSION: Left lower lobe pneumonia. Assessment & Plan - Diagnosis (1) End stage renal disease Is this a current diagnosis for this admission?: Yes Plan: Patient presented with uremia and fluid overload so he was initiated on hemodialysis last Wednesday, 09/21. His kidney disease is deemed to be secondary to diabetes. His urine output has been decreasing. Patient will be arranged for chronic hemodialysis treatment moving forward. Since the patient's AV fistula is not mature enough chronic hemodialysis treatment, I consulted vascular surgeon, Dr. Constantino place a central venous catheter as a backup for his hemodialysis. As an outpatient patient will be referred for a fistulogram to optimize his current AV fistula. Dr. Constantino is planning to place the central venous catheter sometime today. Discussed the plan with the patient and he agreed to proceed. Meanwhile we will monitor the patient since he did not have dialysis today. Patient does not appear to be in respiratory distress and his electrolytes are acceptable so I think we can skip dialysis today. We will also have the case management service to arrange outpatient dialysis at [facility]. (2) Acute respiratory failure with hypoxia Is this a current diagnosis for this admission?: Yes Plan: Due to a combination of aspiration and congestive heart failure. Defer to hospitalist service. (3) Acute CHF (congestive heart failure) Qualifiers: Heart failure type: combined systolic and diastolic Qualified Code(s): I50.41 - Acute combined systolic (congestive) and diastolic (congestive) heart failure Is this a current diagnosis for this admission?: Yes Plan: Slowly improving with initiation of hemodialysis. (4) Aspiration pneumonia Qualifiers: Aspiration pneumonia type: due to gastric secretions Laterality: left Lung location: lower lobe of lung Qualified Code(s): J69.0 - Pneumonitis due to inhalation of food and vomit Is this a current diagnosis for this admission?: Yes Plan: Currently on IV meropenem per hospitalist service. (5) Gram-negative bacteremia Is this a current diagnosis for this admission?: Yes (6) Diabetes mellitus type 2 in obese Is this a current diagnosis for this admission?: Yes (7) Anemia in chronic kidney disease (CKD) Is this a current diagnosis for this admission?: Yes Plan: We will give Retacrit today since he did not receive it during dialysis. (8) Iron deficiency anemia Is this a current diagnosis for this admission?: Yes Plan: We will give the patient IV Injectafer x1 dose today. (9) Chronic kidney disease-mineral and bone disorder Is this a current diagnosis for this admission?: Yes Plan: On calcitriol. (10) Hypertension Qualifiers: Hypertension type: essential hypertension Qualified Code(s): I10 - Essential (primary) hypertension Is this a current diagnosis for this admission?: Yes - Time Time with patient: 15-25 minutes
[2019-09-26] MEDS: PANTOPRAZOLE SODIUM 40 MG TABLET.DR PO SCH (06:13)
[2019-09-26] MEDS: HYDRALAZINE HCL 50 MG TABLET PO SCH ×3 (06:13→22:10)
[2019-09-26 06:14] LABS: HEMATOCRIT 22.8 % (37.9-51.0); MEAN CORPUSCULAR HEMOGLOBIN 27.5 pg (27.0-33.4); MEAN CORPUSCULAR HGB CONC 32.5 g/dL (32.0-36.0); MEAN CORPUSCULAR VOLUME 85 fl (80-97); PLATELET COUNT 389 10^3/uL (150-450); RED BLOOD COUNT 2.69 10^6/uL (4.35-5.55); RED CELL DISTRIBUTION WIDTH 17.4 % (11.5-14.0); WHITE BLOOD COUNT 8.7 10^3/uL (4.0-10.5)
[2019-09-26] MEDS: HEPARIN SOD (PORCINE) 5,000 UNIT/ML 1 ML VIAL SUBCUT SCH ×3 (06:14→22:04)
[2019-09-26 06:26] LABS: HEMOGLOBIN 7.4 g/dL (13.5-17.0)
[2019-09-26 06:27] LABS: ANION GAP 6 (5-19); BLOOD UREA NITROGEN 64 mg/dL (7-20); CARBON DIOXIDE 24 mmol/L (22-30); CHLORIDE 107 mmol/L (98-107); GLUCOSE 100 mg/dL (75-110); POTASSIUM 4.8 mmol/L (3.6-5.0)
[2019-09-26 07:13] LABS: ABSOLUTE LYMPHOCYTES# (MANUAL) 0.3 10^3/uL (0.5-4.7); BASOPHILS % (MANUAL) 0 % (0-2); EOSINOPHILS % (MANUAL) 1 % (0-6); LYMPHOCYTES % (MANUAL) 3 % (13-45); MONOCYTES % (MANUAL) 11 % (3-13); SEGMENTED NEUTROPHILS % (MAN) 85 % (42-78); TOTAL CELLS COUNTED 100
[2019-09-26 07:16] LABS: ANISOCYTOSIS 1+; BURR CELLS SLIGHT; PLATELET COMMENT ADEQUATE; POLYCHROMASIA SLIGHT
[2019-09-26] MEDS: INSULIN LISPRO 100 UNIT/ML 3 ML VIAL SUBCUT SCH ×4 (08:14→21:59)
--- NOTE | 2019-09-26 09:11 | PDOC PROGRESS REPORT ---
Subjective Progress Note for:: 09/26/19 Subjective:: Patient underwent PermCath placement yesterday by Dr. Espino'chrissy which she was uneventful. Currently he said he is doing fine. He denies any shortness of breath or chest pains. He does report some diarrhea starting yesterday described as watery. He denies any nausea or vomiting. His appetite is fair. He made only about 475 mL of urine output yesterday. Reason For Visit: ACUTE RESPIRATORY FAILURE, ASPIRATION PNA Physical Exam Vital Signs: Temp Pulse Resp BP Pulse Ox 98.1 F 82 18 157/74 H 100 09/26/19 08:01 09/26/19 08:01 09/26/19 08:01 09/26/19 08:01 09/26/19 08:01 Intake & Output 09/25/19 09/26/19 09/27/19 06:59 06:59 06:59 Intake Total 1255 1740 Output Total 550 485 Balance 705 1255 Weight 99.2 kg 99.2 kg Exam: General appearance: PRESENT: no acute distress, cooperative, well-developed, well-nourished Head exam: PRESENT: atraumatic, normocephalic Eye exam: PRESENT: conjunctiva slightly pale, PERRLA. ABSENT: scleral icterus Neck exam: ABSENT: JVD; right permacath in place Respiratory exam: PRESENT: Normal breath sounds. ABSENT: crackles, rales, rhonchi, unlabored, wheezes Cardiovascular exam: PRESENT: Regular rate rhythm -+S1, +S2. Absent: Diastolic nor systolic murmur GI/Abdominal exam: PRESENT: normal bowel sounds, soft. Subcutaneous edema ABSENT: guarding, mass, tenderness Extremities exam: Grade 1 bilateral lower extremity pitting edema; left upper arm AV fistula has good bruit and thrill Neurological exam: PRESENT: alert, awake, oriented to person, place and time. Skin exam: PRESENT: dry, warm, Cardiovascular exam: PRESENT: +S1, +S2, systolic murmur GI/Abdominal exam: PRESENT: normal bowel sounds, soft. ABSENT: organomegaly, tenderness Results Laboratory Results: 09/26/19 05:22 09/26/19 05:22 09/26/19 09/26/19 05:22 05:22 WBC 8.7 RBC 2.69 L Hgb 7.4 L Hct 22.8 L MCV 85 MCH 27.5 MCHC 32.5 RDW 17.4 H Plt Count 389 Seg Neutrophils % Not Reportable Sodium 137.0 Potassium 4.8 Chloride 107 Carbon Dioxide 24 Anion Gap 6 BUN 64 H Creatinine 6.28 H Est GFR ( Amer) 11 L Glucose 100 Calcium 9.0 09/19/19 09/19/19 12:19 12:19 Troponin I 0.030 NT-Pro-B Natriuret Pep 42960 H Impressions: Chest X-Ray 09/19/19 12:03 IMPRESSION: Left lower lobe pneumonia. Assessment & Plan - Diagnosis (1) End stage renal disease Is this a current diagnosis for this admission?: Yes Plan: Patient presented with uremia and fluid overload so he was initiated on hemodialysis last Wednesday, 09/21. His kidney disease is deemed to be secondary to diabetes. His urine output has been decreasing. Patient will be arranged for chronic hemodialysis treatment moving forward. Since the patient's AV fistula is not mature enough chronic hemodialysis treatment, I consulted vascular surgeon, Dr. Constantino who placed a central venous catheter as a backup for his hemodialysis. As an outpatient patient will be referred for a fistulogram to optimize his current AV fistula. Patient does not appear to be in respiratory distress and his electrolytes are acceptable so I think we can skip dialysis today. We will also have the case management service to arrange outpatient dialysis at [facility]. Plan for dialysis tomorrow. From nephrology standpoint I think he can be discharged once [facility] has accepted the patient for dialysis. (2) Acute respiratory failure with hypoxia Is this a current diagnosis for this admission?: Yes Plan: Due to a combination of aspiration and congestive heart failure. Defer to hospitalist service. (3) Acute CHF (congestive heart failure) Qualifiers: Heart failure type: combined systolic and diastolic Qualified Code(s): I50.41 - Acute combined systolic (congestive) and diastolic (congestive) heart failure Is this a current diagnosis for this admission?: Yes Plan: Slowly improving with initiation of hemodialysis. (4) Aspiration pneumonia Qualifiers: Aspiration pneumonia type: due to gastric secretions Laterality: left Lung location: lower lobe of lung Qualified Code(s): J69.0 - Pneumonitis due to inhalation of food and vomit Is this a current diagnosis for this admission?: Yes Plan: Currently on IV meropenem per hospitalist service. (5) Gram-negative bacteremia Is this a current diagnosis for this admission?: Yes Plan: 1 blood cultures positive for Acinetobacter species. Infectious disease agreed with IV meropenem for now (6) Diabetes mellitus type 2 in obese Is this a current diagnosis for this admission?: Yes (7) Anemia in chronic kidney disease (CKD) Is this a current diagnosis for this admission?: Yes Plan: We will give Retacrit during dialysis. (8) Iron deficiency anemia Is this a current diagnosis for this admission?: Yes Plan: Patient has had 2 doses of IV Injectafer. (9) Chronic kidney disease-mineral and bone disorder Is this a current diagnosis for this admission?: Yes Plan: On calcitriol. (10) Hypertension Qualifiers: Hypertension type: essential hypertension Qualified Code(s): I10 - Ess ential (primary) hypertension Is this a current diagnosis for this admission?: Yes Plan: Unchanged and stable. - Time Time with patient: 15-25 minutes
[2019-09-26] MEDS: FLUTICASONE NASAL SPRAY 50 MCG/SPRY 120 SPRAY/16 GM NASL SCH (09:24)
[2019-09-26] MEDS: METOPROLOL TARTRATE 50 MG TABLET PO SCH ×2 (09:24→22:05)
[2019-09-26] MEDS: CETIRIZINE 10 MG TABLET PO SCH (09:24)
[2019-09-26] MEDS: GUAIFENESIN 600 MG TABLET.SA PO SCH ×2 (09:24→22:04)
[2019-09-26] MEDS: CALCITRIOL 0.25 MCG CAPSULE PO SCH (09:24)
[2019-09-26] MEDS: FLUTICASONE PROPIONATE HFA 110 MCG/PUFF 12 GM MDI IH SCH ×2 (09:26→22:09)
[2019-09-26] MEDS: CLONIDINE HCL 0.1 MG TABLET PO SCH ×2 (09:28→22:05)
[2019-09-26] MEDS: DOCUSATE SODIUM 100 MG CAPSULE PO SCH (09:28)
[2019-09-26] MEDS: FUROSEMIDE 40 MG TABLET PO SCH ×2 (09:28→17:19)
--- NOTE | 2019-09-26 09:41 | RADIOLOGY REPORT (SQ) ---
EXAM DESCRIPTION: FLUORO/CV PLACEMENT; CHEST SINGLE VIEW IMAGES COMPLETED DATE/TIME: 09/25/2019 5:44 pm; 09/25/2019 5:43 pm REASON FOR STUDY: PERM CATH FLUOROSCOPY TIME: 0.8 minutes 3 digital fluoroscopic images saved to PACS. TECHNIQUE: Intra-operative images acquired during surgical procedure to evaluate progress. NUMBER OF IMAGES: 3 digital fluoroscopic images LIMITATIONS: None. FINDINGS: Intra procedural imaging and fluoro during central venous dialysis catheter placement in t he OR by Dr. Constantino IMPRESSION: IMAGE(S) OBTAINED DURING PROCEDURE. COMMENT: Quality ID [id number]: Final reports for procedures using fluoroscopy that document radiation exp osure indices, or exposure time and number of fluorographic images (if radiation exposure indices are not available) Please consult full operative report of the attending physician for description of the procedure. TECHNICAL DOCUMENTATION: JOB ID: [id number] 2010 [employer]- All Rights Reserved COMPARISON: None. AP chest 09/19/2019 Reading location - IP/workstation name: [email or web address]
--- NOTE | 2019-09-26 09:41 | RADIOLOGY REPORT (SQ) ---
EXAM DESCRIPTION: FLUORO/CV PLACEMENT; CHEST SINGLE VIEW IMAGES COMPLETED DATE/TIME: 09/25/2019 5:44 pm; 09/25/2019 5:43 pm REASON FOR STUDY: PERM CATH FLUOROSCOPY TIME: 0.8 minutes 3 digital fluoroscopic images saved to PACS. TECHNIQUE: Intra-operative images acquired during surgical procedure to evaluate progress. NUMBER OF IMAGES: 3 digital fluoroscopic images LIMITATIONS: None. FINDINGS: Intra procedural imaging and fluoro during central venous dialysis catheter placement in t he OR by Dr. Constantino IMPRESSION: IMAGE(S) OBTAINED DURING PROCEDURE. COMMENT: Quality ID [id number]: Final reports for procedures using fluoroscopy that document radiation exp osure indices, or exposure time and number of fluorographic images (if radiation exposure indices are not available) Please consult full operative report of the attending physician for description of the procedure. TECHNICAL DOCUMENTATION: JOB ID: [id number] 2010 [employer]- All Rights Reserved COMPARISON: None. AP chest 09/19/2019 Reading location - IP/workstation name: [email or web address]
[2019-09-26] MEDS: MEROPENEM 500 MG in NORMAL SALINE 50 ML IV SCH (17:18)
--- NOTE | 2019-09-26 17:25 | PDOC PROGRESS REPORT ---
Subjective Progress Note for:: 09/26/19 Subjective:: ESTUARDO HULL is a 64 year old male with a past medical history of CKD 4 (followed by Dr. Jade), hypertension, chronic respiratory failure (Home O2 @ 2lpm) diabetes, hyperlipidemia, sleep apnea, and obesity (home CPAP) who was admitted for aspiration pneumonia. Patient was seen on morning rounds. He was found resting in bed, comfortably, on supplemental oxygen at 2lpm; patient reports he is on his baseline oxygen requirement. States he is feeling well. Hopeful to d/c home soon. Somewhat anxious about continuing work while on dialysis and oxygen. Otherwise, expresses no concerns today. He denies fever, chest pain, dyspnea, orthopnea, abdominal pain, nausea vomiting. He reports that his peripheral edema significantly improved. No other questions or concerns. No concerns per nursing. Reason For Visit: ACUTE RESPIRATORY FAILURE, ASPIRATION PNA Physical Exam Vital Signs: Temp Pulse Resp BP Pulse Ox 97.8 F 80 18 159/74 H 100 09/26/19 15:55 09/26/19 15:55 09/26/19 15:55 09/26/19 15:55 09/26/19 15:55 Intake & Output 09/25/19 09/26/19 09/27/19 06:59 06:59 06:59 Intake Total 1255 1740 Output Total 550 485 Balance 705 1255 Weight 99.2 kg 99.2 kg General appearance: PRESENT: no acute distress, cooperative, obese, well- developed, well-nourished Head exam: PRESENT: atraumatic, normocephalic Eye exam: PRESENT: conjunctiva pink, EOMI, PERRLA. ABSENT: scleral icterus Mouth exam: PRESENT: moist, tongue midline Respiratory exam: PRESENT: clear to auscultation kay, symmetrical, unlabored, other - supplemental oxygen. ABSENT: rales, rhonchi, wheezes Cardiovascular exam: PRESENT: RRR. ABSENT: diastolic murmur, rubs, systolic murmur Pulses: PRESENT: normal dorsalis pedis pul Vascular exam: PRESENT: normal capillary refill Rectal exam: PRESENT: deferred Extremities exam: PRESENT: full ROM. ABSENT: calf tenderness, clubbing, pedal edema Musculoskeletal exam: PRESENT: ambulatory Neurological exam: PRESENT: alert, awake, oriented to person, oriented to place, oriented to time, oriented to situation, CN II-XII grossly intact. ABSENT: motor sensory deficit Psychiatric exam: PRESENT: appropriate affect, normal mood. ABSENT: homicidal ideation, suicidal ideation Skin exam: PRESENT: dry, intact, warm. ABSENT: cyanosis, rash Results Laboratory Results: 09/26/19 05:22 09/26/19 05:22 09/26/19 09/26/19 05:22 05:22 WBC 8.7 RBC 2.69 L Hgb 7.4 L Hct 22.8 L MCV 85 MCH 27.5 MCHC 32.5 RDW 17.4 H Plt Count 389 Seg Neutrophils % Not Reportable Sodium 137.0 Potassium 4.8 Chloride 107 Carbon Dioxide 24 Anion Gap 6 BUN 64 H Creatinine 6.28 H Est GFR ( Amer) 11 L Glucose 100 Calcium 9.0 09/19/19 09/19/19 12:19 12:19 Troponin I 0.030 NT-Pro-B Natriuret Pep 23598 H Impressions: Chest X-Ray 09/25/19 00:00 IMPRESSION: IMAGE(S) OBTAINED DURING PROCEDURE. Guidance Fluoroscopy 09/25/19 00:00 IMPRESSION: IMAGE(S) OBTAINED DURING PROCEDURE. Assessment and Plan - Diagnosis (1) Gram-negative bacteremia Is this a current diagnosis for this admission?: Yes Plan: Blood culture from admission growing Acinetobacter species. Repeat blood cultures negative. Day 4 IV meropenem. Received 1 day of IV cefepime. Received 4 days of IV ceftriaxone. Received 4 days of IV metronidazole. Continue empiric IV antibiotics. Infectious disease specialist consulted for recommendation or length of therapy; recommending transition to p.o. Cipro 250 mg daily at discharge for total of 10 days of therapy. (2) Acute respiratory failure with hypoxia Is this a current diagnosis for this admission?: Yes Plan: Acute exacerbation has resolved; now on baseline oxygen requirement. Significant improvement postdialysis. Most likely due to secondary to aspiration pneumonia complicated by underlying CHF and end-stage renal disease. Day 8 IV antibiotics. Day 4 IV meropenem. Received 1 day of IV cefepime. Received 4 days of IV ceftriaxone. Received 4 days of IV metronidazole. Continue empiric IV antibiotics. Continue supplemental oxygen as needed maintain saturations greater than 89%. (Utilizes 2 L/min at home) Continue BiPAP nightly and as needed. Continue scheduled and as needed nebulizer treatments. Encourage pulmonary toilet. (3) Aspiration pneumonia Qualifiers: Aspiration pneumonia type: due to gastric secretions Laterality: left Lung location: lower lobe of lung Qualified Code(s): J69.0 - Pneumonitis due to inhalation of food and vomit Is this a current diagnosis for this admission?: Yes Plan: Plan as per #1. (4) Hypertension Qualifiers: Hypertension type: essential hypertension Qualified Code(s): I10 - Essential (primary) hypertension Is this a current diagnosis for this admission?: Yes Plan: Improving. Home medication regiment of amlodipine, metoprolol, clonidine, and hydralazine. PRN IV hydralazine and beta-blockers. Cardiac diet. Outpatient PCP follow-up. (5) Diabetes Qualifiers: Diabetes mellitus type: type 2 Diabetes mellitus penitentiary insulin use: with penitentiary use Chronic kidney disease stage: stage 5, not on chronic dialysis Is this a current diagnosis for this admission?: Yes Plan: Controlled. Hemoglobin A1c 5.7 as of 2019. Diabetic diet. Sliding scale insulin. Accu-Cheks. Hypoglycemic protocol. Some home meds upon discharge. Registered dietitian and perioperative educator consulted. Outpatient PCP follow-up. (6) CKD (chronic kidney disease) stage 5, GFR less than 15 ml/min Is this a current diagnosis for this admission?: Yes Plan: Nonoliguric. Status post first hemodialysis 09/22/2019. Strict in and out, monitor electrolytes, monitor vitals, replace electrolytes as needed. Continue calcitriol, avoid nephrotoxic meds. PermCath placement today r/t AV fistula malfunction. Dialysis per Nephrology's expertise. (7) Acute CHF (congestive heart failure) Qualifiers: Heart failure type: combined systolic and diastolic Qualified Code(s): I50.41 - Acute combined systolic (congestive) and diastolic (congestive) heart failure Is this a current diagnosis for this admission?: Yes Plan: Acute exacerbation has resolved; now compensated. Acute combined systolic and diastolic heart failure. Denies any chest pain. proBNP 29,900 up from baseline of 10,000. 09/22/2019. 2D echo left ventricular systolic function normal. LVEF 55 to 60%. Right ventricle moderately dilated. Moderate to severe pulmonary hypertension by echo. 10/30/2015. 2D echo left ventricular ejection fraction WNL. Grade 1/4 mild diastolic dysfunction. Resumed home antihypertensive regiment of metoprolol, hydralazine, clonidine, amlodipine. Continue home dose atorvastatin. Consider start of MOMO once kidney function has stabilized. Continue strict I&O Cardiac diet. (8) Anemia Qualifiers: Anemia type: due to chronic kidney disease Is this a current diagnosis for this admission?: Yes Plan: Hemoglobin is stable; ~7.5. Likely combination of iron deficiency anemia anemia of chronic disease. Denies any easy bleeding, hematuria, hematochezia, melena, hemoptysis or hematemesis. Received 1 dose of Injectafer on 09/21/2019. Received erythropoietin during hemodialysis on 09/22/2019. Monitor H&H. Avoid transfusion if possible given patient is developing end-stage renal dise ase and may need kidney transplant in the future. Transfuse if symptomatic or hemoglobin drops below 7 (9) Hyperkalemia Is this a current diagnosis for this admission?: Yes Plan: Resolved. Due to end-stage renal disease. Daily potassium level. - Time Time Spent with patient: 25-34 minutes Medications reviewed and adjusted accordingly: Yes Anticipated discharge: Home Within: within 24 hours - following dialysis
[2019-09-26] MEDS: AMLODIPINE BESYLATE 10 MG TABLET PO SCH (22:04)
[2019-09-26] MEDS: ATORVASTATIN CALCIUM 40 MG TABLET PO SCH (22:04)
[2019-09-27] MEDS ORDERED: NORMAL SALINE 1000 ML 1,000 ML IV PRN (05:00)
[2019-09-27] MEDS ORDERED: EPOETIN ALFA-EPBX 20,000 UNIT in SYRINGE, DISPOSABLE, 1 EACH IV PRN (05:00)
[2019-09-27] MEDS ORDERED: HEPARIN SOD (PORCINE) 1,000 UNIT/ML 10 ML VIAL IV PRN (05:00)
[2019-09-27 05:03] LABS: HEMATOCRIT 22.5 % (37.9-51.0); MEAN CORPUSCULAR HEMOGLOBIN 27.9 pg (27.0-33.4); MEAN CORPUSCULAR HGB CONC 32.3 g/dL (32.0-36.0); MEAN CORPUSCULAR VOLUME 86 fl (80-97); PLATELET COUNT 388 10^3/uL (150-450); RED BLOOD COUNT 2.61 10^6/uL (4.35-5.55); WHITE BLOOD COUNT 9.5 10^3/uL (4.0-10.5)
[2019-09-27] MEDS: HEPARIN SOD (PORCINE) 5,000 UNIT/ML 1 ML VIAL SUBCUT SCH (05:20)
[2019-09-27] MEDS: HYDRALAZINE HCL 50 MG TABLET PO SCH (05:20)
[2019-09-27] MEDS: PANTOPRAZOLE SODIUM 40 MG TABLET.DR PO SCH (05:20)
[2019-09-27 05:21] LABS: ANION GAP 6 (5-19); BLOOD UREA NITROGEN 64 mg/dL (7-20); CALCIUM 8.9 mg/dL (8.4-10.2); CARBON DIOXIDE 24 mmol/L (22-30); CHLORIDE 106 mmol/L (98-107); GLUCOSE 101 mg/dL (75-110); POTASSIUM 4.7 mmol/L (3.6-5.0)
[2019-09-27 05:28] LABS: ABSOLUTE LYMPHOCYTES# (MANUAL) 0.7 10^3/uL (0.5-4.7); ABSOLUTE MONOCYTES # (MANUAL) 0.4 10^3/uL (0.1-1.4); BASOPHILS % (MANUAL) 0 % (0-2); EOSINOPHILS % (MANUAL) 1 % (0-6); LYMPHOCYTES % (MANUAL) 6 % (13-45); MONOCYTES % (MANUAL) 4 % (3-13); SEGMENTED NEUTROPHILS % (MAN) 88 % (42-78); TOTAL CELLS COUNTED 100
[2019-09-27 05:29] LABS: ANISOCYTOSIS 1+
[2019-09-27 05:30] LABS: HYPOCHROMASIA SLIGHT; OVALOCYTES 1+; PLATELET COMMENT ADEQUATE
[2019-09-27 05:33] LABS: BURR CELLS SLIGHT; POIKILOCYTOSIS SLIGHT; SICKLE RED CELLS SLIGHT
[2019-09-27 05:36] LABS: HEMOGLOBIN 7.3 g/dL (13.5-17.0)
[2019-09-27] MEDS: INSULIN LISPRO 100 UNIT/ML 3 ML VIAL SUBCUT SCH ×2 (08:39→11:19)
[2019-09-27] MEDS: FLUTICASONE NASAL SPRAY 50 MCG/SPRY 120 SPRAY/16 GM NASL SCH (10:08)
[2019-09-27] MEDS: CLONIDINE HCL 0.1 MG TABLET PO SCH (10:09)
[2019-09-27] MEDS: CETIRIZINE 10 MG TABLET PO SCH (10:09)
[2019-09-27] MEDS: METOPROLOL TARTRATE 50 MG TABLET PO SCH (10:09)
[2019-09-27] MEDS: CALCITRIOL 0.25 MCG CAPSULE PO SCH (10:09)
[2019-09-27] MEDS: FUROSEMIDE 40 MG TABLET PO SCH (10:09)
[2019-09-27] MEDS: GUAIFENESIN 600 MG TABLET.SA PO SCH (10:09)
[2019-09-27] MEDS: FLUTICASONE PROPIONATE HFA 110 MCG/PUFF 12 GM MDI IH SCH (10:09)
[2019-09-27] MEDS: DOCUSATE SODIUM 100 MG CAPSULE PO SCH (10:10)
--- NOTE | 2019-09-27 11:02 | PDOC PROGRESS REPORT ---
Subjective Progress Note for:: 09/27/19 Subjective:: I am seeing the patient during dialysis this morning. We are using his PermCath for dialysis this morning. He still pretty bruised on his left upper arm AV fistula and was hurting so bad after the infiltration on Wednesday so we are not able to even try 1 needle into the fistula. Otherwise patient states that he is feeling good. He denies any shortness of breath. He is eating. He is tolerating dialysis well. Reason For Visit: ACUTE RESPIRATORY FAILURE, ASPIRATION PNA Physical Exam Vital Signs: Temp Pulse Resp BP Pulse Ox 97.4 F 76 22 H 152/62 H 100 09/27/19 03:23 09/27/19 07:00 09/27/19 03:23 09/27/19 03:23 09/27/19 03:23 Intake & Output 09/26/19 09/27/19 09/28/19 06:59 06:59 06:59 Intake Total 1740 952 Output Total 840 035 6406 Balance 1255 248 -3000 Weight 99.2 kg 100 kg Vitals during dialysis: Blood pressure 170/81, heart rate of 73, blood flow rate of 250 mL/min and dialysate flow rate of 600 mL/min. Exam: General appearance: PRESENT: no acute distress, cooperative, well-developed, well-nourished Head exam: PRESENT: atraumatic, normocephalic Eye exam: PRESENT: conjunctiva pale, PERRLA. ABSENT: scleral icterus Neck exam: ABSENT: JVD Respiratory exam: PRESENT: Normal breath sounds. ABSENT: crackles, rales, rhonchi, unlabored, wheezes Cardiovascular exam: PRESENT: Regular rate rhythm -+S1, +S2. ABSENT: diastolic murmur, systolic murmur GI/Abdominal exam: PRESENT: normal bowel sounds, soft. ABSENT: guarding, mass, tenderness Extremities exam: Slightly improved grade 1 bilateral lower extremity pitting edema Neurological exam: PRESENT: alert, awake, oriented to person, place and time. Skin exam: PRESENT: dry, warm, Cardiovascular exam: PRESENT: +S1, +S2, systolic murmur GI/Abdominal exam: PRESENT: normal bowel sounds, soft. ABSENT: organomegaly, tenderness Results Laboratory Results: 09/27/19 04:38 09/27/19 04:38 09/27/19 09/27/19 04:38 04:38 WBC 9.5 RBC 2.61 L Hgb 7.3 L Hct 22.5 L MCV 86 MCH 27.9 MCHC 32.3 RDW 17.0 H Plt Count 388 Seg Neutrophils % Not Reportable Sodium 136.1 L Potassium 4.7 Chloride 106 Carbon Dioxide 24 Anion Gap 6 BUN 64 H Creatinine 6.54 H Est GFR ( Amer) 10 L Glucose 101 Calcium 8.9 09/19/19 09/19/19 12:19 12:19 Troponin I 0.030 NT-Pro-B Natriuret Pep 83479 H Impressions: Chest X-Ray 09/25/19 00:00 IMPRESSION: IMAGE(S) OBTAINED DURING PROCEDURE. Guidance Fluoroscopy 09/25/19 00:00 IMPRESSION: IMAGE(S) OBTAINED DURING PROCEDURE. Assessment & Plan - Diagnosis (1) End stage renal disease Is this a current diagnosis for this admission?: Yes Plan: Patient presented with uremia and fluid overload so he was initiated on hemodialysis last Wednesday, 09/21. His kidney disease is deemed to be secondary to diabetes. His urine output has been decreasing. Patient will be arranged for chronic hemodialysis treatment moving forward. Since the patient's AV fistula is not mature enough chronic hemodialysis treatment, I consulted vascular surgeon, Dr. Constantino who placed a central venous catheter as a backup for his hemodialysis. As an outpatient patient will be referred for a fistulogram to optimize his current AV fistula. We will do dialysis today for 2.5 hours, using the patient's PermCath, with 2 potassium bath, blood flow rate of 250 mL per minute, dialysate flow rate of 600 mL per minute, ultrafiltration 2 to 3 L as tolerated, no heparin and Retacrit with 20,000 units during dialysis intravenously. Patient is being monitored very closely during dialysis treatment as this is his second treatment. We will adjust accordingly. Patient is now arranged to do outpatient dialysis at [facility]. From nephrology standpoint I think the patient can be safely discharged home. Next dialysis will be on Wednesday at [facility] if discharged. (2) Acute respiratory failure with hypoxia Is this a current diagnosis for this admission?: Yes Plan: Due to a combination of aspiration and congestive heart failure. Defer to hospitalist service. Now resolving. (3) Acute CHF (congestive heart failure) Qualifiers: Heart failure type: combined systolic and diastolic Qualified Code(s): I50.41 - Acute combined systolic (congestive) and diastolic (congestive) heart failure Is this a current diagnosis for this admission?: Yes Plan: Slowly improving with initiation of hemodialysis. (4) Aspiration pneumonia Qualifiers: Aspiration pneumonia type: due to gastric secretions Laterality: left Lung location: lower lobe of lung Qualified Code(s): J69.0 - Pneumonitis due to inhalation of food and vomit Is this a current diagnosis for this admission?: Yes Plan: Currently on IV meropenem per hospitalist service. (5) Gram-negative bacteremia Is this a current diagnosis for this admission?: Yes Plan: 1 blood cultures positive for Acinetobacter species. Infectious disease agreed with IV meropenem for now (6) Diabetes mellitus type 2 in obese Is this a current diagnosis for this admission?: Yes (7) Anemia in chronic kidney disease (CKD) Is this a current diagnosis for this admission?: Yes Plan: We will give Retacrit during dialysis. (8) Iron deficiency anemia Is this a current diagnosis for this admission?: Yes Plan: Patient has had 2 doses of IV Injectafer. (9) Chronic kidney disease-mineral and bone disorder Is this a current diagnosis for this admission?: Yes Plan: On calcitriol. (10) Hypertension Qualifiers: Hypertension type: essential hypertension Qualified Code(s): I10 - Essential (primary) hypertension Is this a current diagnosis for this admission?: Yes Plan: Unchanged and stable. Continue the same blood pressure regimen. - Time Time with patient: 15-25 minutes
[2019-09-27 12:15] VITALS: BP 172/81
--- NOTE | 2019-09-27 13:01 | PDOC DISCHARGE SUMMARY ---
Impression - Admit/DC Date/PCP Admission Date/Primary Care Provider: 09/19/19 13:58 KINGSLEY KENNY PA-C Discharge Date: 09/27/19 - Discharge Diagnosis (1) Gram-negative bacteremia Is this a current diagnosis for this admission?: Yes (2) Acute respiratory failure with hypoxia Is this a current diagnosis for this admission?: Yes (3) Aspiration pneumonia Is this a current diagnosis for this admission?: Yes (4) Hypertension Is this a current diagnosis for this admission?: Yes (5) Diabetes Is this a current diagnosis for this admission?: Yes (6) CKD (chronic kidney disease) stage 5, GFR less than 15 ml/min Is this a current diagnosis for this admission?: Yes (7) Acute CHF (congestive heart failure) Is this a current diagnosis for this admission?: Yes (8) Anemia Is this a current diagnosis for this admission?: Yes (9) Hyperkalemia Is this a current diagnosis for this admission?: Yes - Additional Information Resuscitation Status: Do Not Intubate Discharge Diet: Cardiac, Diabetic, Other (Comments) Discharge Activity: Activity As Tolerated, Balance Activity w/Rest, Weigh Daily Referrals: KINGSLEY KENNY PA-C [Primary Care Provider] - 09/29/19 10:30 am (Gerardo or DR. Rodriguez will see the patient at Dialysis on Wednesday.) Prescriptions: Ciprofloxacin HCl [Cipro] 250 mg PO DAILY #3 tablet Home Medications: Hum Insulin NPH/Reg Insulin Hm [Insulin 70-30 (NPH/Reg) 100 unit/mL] 7 unit SUBCUT QPM 10/28/15 Hum Insulin NPH/Reg Insulin Hm [Insulin 70-30 (NPH/Reg) 100 unit/mL] 15 unit SUBCUT QAM 10/28/15 Hydralazine HCl 50 mg PO Q8 #90 tablet 10/31/15 Metoprolol Succinate [Toprol Xl 50 mg Tab.sr] 100 mg PO BID #60 tab.sr.24h 10/31/15 Amlodipine Besylate [Norvasc 10 mg Tablet] 10 mg PO DAILY 09/19/19 Atorvastatin Calcium [Lipitor 20 mg Tablet] 20 mg PO DAILY 09/19/19 Calcitriol [Rocaltrol 0.25 mcg Capsule] 0.25 mcg PO DAILY 09/19/19 Cetirizine HCl 10 mg PO Q48HP PRN 09/19/19 Clonidine HCl [Catapres 0.1 mg Tablet] 0.1 mg PO BID 09/19/19 Flovent Hfa 220 Mcg 1 puff IH BID 09/19/19 Fluticasone Propionate [Flonase Nasal [place] 50 Mcg/[place] 16 gm] 1 applic NASL DAILY 09/19/19 Omeprazole 40 mg PO DAILY 09/19/19 Vit B Comp No.3/Folic/C/Biotin [Celina-Kerri Rx Tablet] 1 each PO DAILY 09/19/19 Acetaminophen [Tylenol 325 mg Tablet] 650 mg PO Q4HP PRN tablet 09/27/19 Ciprofloxacin HCl [Cipro] 250 mg PO DAILY #3 tablet 09/27/19 History of Present Illiness History of Present Illness: ESTUARDO HULL is a 64 year old male with a past medical history of CKD 4 (followed by Dr. Jade), hypertension, chronic respiratory failure (Home O2 @ 2lpm) diabetes, hyperlipidemia, sleep apnea, and obesity (home CPAP) who presented to the emergency department today via EMS from the [facility] where he was undergoing a colonoscopy had a desaturation event into the 70s requiring airway support with BVM. Two separate attempts were made to intubate the patient but were unsuccessful. Per surgical clinic staff, there was high suspicion for aspiration event. Fortunately, the patient's mentation improved; he became alert and was able to maintain his own airway, though with continued hypoxia. Evaluation in the emergency department revealed hypertension (182/84) tachypnea (RR 28), hypoxia on room air, leukocytosis (WBC is 10.8) baseline anemia (hemoglobin 9.4), SHI/CKD (Cr 7.37/BUN 81), and chest x-ray showing left lower lobe pneumonia. He was placed on BiPAP and provided IV Rocephin and metronidazole. He is referred to the hospitalist service for admission and management of the above-stated complaints and findings. Hospital Course Hospital Course: (1) Gram-negative bacteremia Blood culture from admission grew Acinetobacter species (1 of 4 bottles) Repeat blood cultures negative. Received 5 days of meropenem Infectious disease specialist consulted for recommendation or length of therapy; recommend transition to p.o. Cipro 250 mg daily at discharge for total of 10 days of therapy. (2) Acute respiratory failure with hypoxia Acute exacerbation has resolved; now on baseline oxygen requirement. Significant improvement postdialysis. Most likely due to secondary to aspiration pneumonia complicated by underlying CHF and end-stage renal disease. He is discharged home on supplemental oxygen Encourage pulmonary toilet. (3) Aspiration pneumonia Received full course of antibiotics for treatment of aspiration pneumonia. Afebrile, WBC nml. He was further supported with supplemental oxyge, BiPAP, scheduled/as needed nebulizer treatments, and aggressive pulmonary toilet. (4) Hypertension Improving. Home medication regiment of amlodipine, metoprolol, clonidine, and hydralazine. Cardiac diet. Outpatient PCP follow-up. (5) Diabetes Controlled. Hemoglobin A1c 5.7 as of 2019. Resume outpatient regiment at discharge. Outpatient PCP follow-up. (6) CKD (chronic kidney disease) stage 5, GFR less than 15 ml/min Nonoliguric. Status post first hemodialysis 09/22/2019. Continue calcitriol, PermCath placement r/t AV fistula malfunction. Dialysis per Nephrology's expertise. Scheduled to have dialysis at [facility] Wednesday morning. (7) Acute CHF (congestive heart failure) Acute exacerbation has resolved; now compensated. Acute combined systolic and diastolic heart failure. Denies any chest pain. proBNP 29,900 up from baseline of 10,000. 09/22/2019. 2D echo left ventricular systolic function normal. LVEF 55 to 60%. Right ventricle moderately dilated. Moderate to severe pulmonary hypertension by echo. 10/30/2015. 2D echo left ventricular ejection fraction WNL. Grade 1/4 mild diastolic dysfunction. Resumed home antihypertensive regiment of metoprolol, hydralazine, clonidine, amlodipine. Continue home dose atorvastatin. Cardiac diet. (8) Anemia Hemoglobin is stable; ~7.5. Likely combination of iron deficiency anemia anemia of chronic disease. Denies any easy bleeding, hematuria, hematochezia, melena, hemoptysis or hematemesis. Received 1 dose of Injectafer on 09/21/2019. Received erythropoietin during hemodialysis on 09/22/2019. (9) Hyperkalemia Resolved. Due to end-stage renal disease. Daily potassium level. Physical Exam Vital Signs: Temp Pulse Resp BP Pulse Ox 97.7 F 76 20 172/81 H 99 09/27/19 12:14 09/27/19 12:14 09/27/19 12:14 09/27/19 12:14 09/27/19 12:14 Intake & Output 09/26/19 09/27/19 09/28/19 06:59 06:59 06:59 Intake Total 1740 952 240 Output Total 949 028 8818 Balance 1255 248 -2760 Weight 99.2 kg 100 kg General appearance: PRESENT: no acute distress, cooperative, obese, well- developed, well-nourished Head exam: PRESENT: atraumatic, normocephalic Eye exam: PRESENT: conjunctiva pink, EOMI, PERRLA. ABSENT: scleral icterus Mouth exam: PRESENT: moist, tongue midline Respiratory exam: PRESENT: clear to auscultation kay, symmetrical, unlabored, other - supplemental O2. ABSENT: rales, rhonchi, wheezes Cardiovascular exam: PRESENT: RRR. ABSENT: diastolic murmur, rubs, systolic murmur Vascular exam: PRESENT: normal capillary refill Extremities exam: PRESENT: full ROM. ABSENT: calf tenderness, clubbing, pedal edema Musculoskeletal exam: PRESENT: ambulatory Neurological exam: PRESENT: alert, awake, oriented to person, oriented to place, oriented to time, oriented to situation, CN II-XII grossly intact. ABSENT: motor sensory deficit Psychiatric exam: PRESENT: appropriate affect, normal mood. ABSENT: homicidal ideation, suicidal ideation Skin exam: PRESENT: dry, intact, warm. ABSENT: cyanosis, rash Results Laboratory Results: WBC 9.5 10^3/uL (4.0-10.5) 09/27/19 04:38 RBC 2.61 10^6/uL (4.35-5.55) L 09/27/19 04:38 Hgb 7.3 g/dL (13.5-17.0) L 09/27/19 04:38 Hct 22.5 % (37.9-51.0) L 09/27/19 04:38 MCV 86 fl (80-97) 09/27/19 04:38 MCH 27.9 pg (27.0-33.4) 09/27/19 04:38 MCHC 32.3 g/dL (32.0-36.0) 09/27/19 04:38 RDW 17.0 % (11.5-14.0) H 09/27/19 04:38 Plt Count 388 10^3/uL (150-450) 09/27/19 04:38 Lymph % (Auto) Not Reportable 09/27/19 04:38 [place] % (Auto) Not Reportable 09/27/19 04:38 Eos % (Auto) Not Reportable 09/27/19 04:38 Baso % (Auto) Not Reportable 09/27/19 04:38 Reticulocyte # 0.038 10^6/uL (0.028-0.122) 09/21/19 05:46 Absolute Neuts (auto) Not Reportable 09/27/19 04:38 Absolute Lymphs (auto) Not Reportable 09/27/19 04:38 Absolute Monos (auto) Not Reportable 09/27/19 04:38 Absolute Eos (auto) Not Reportable 09/27/19 04:38 Absolute Basos (auto) Not Reportable 09/27/19 04:38 Total Counted 100 09/27/19 04:38 Seg Neutrophils % Not Reportable 09/27/19 04:38 Seg Neuts % (Manual) 88 % (42-78) H 09/27/19 04:38 Band Neutrophils % 1 % (3-5) L 09/19/19 12:19 Lymphocytes % (Manual) 6 % (13-45) L 09/27/19 04:38 Atypical Lymphs % 1 % (0) 09/27/19 04:38 Monocytes % (Manual) 4 % (3-13) 09/27/19 04:38 Eosinophils % (Manual) 1 % (0-6) 09/27/19 04:38 Basophils % (Manual) 0 % (0-2) 09/27/19 04:38 Abs Neuts (Manual) 8.4 10^3/uL (1.7-8.2) H 09/27/19 04:38 Abs Lymphs (Manual) 0.7 10^3/uL (0.5-4.7) 09/27/19 04:38 Abs Monocytes (Manual) 0.4 10^3/uL (0.1-1.4) 09/27/19 04:38 Absolute Eos (Manual) 0.1 10^3/uL (0.0-0.6) 09/27/19 04:38 Abs Basophils (Manual) 0.0 10^3/uL (0.0-0.2) 09/27/19 04:38 Toxic Granulation SLIGHT 09/20/19 05:29 Clumped Platelets PRESENT 09/19/19 12:19 Platelet Comment ADEQUATE 09/27/19 04:38 Polychromasia SLIGHT 09/26/19 05:22 Hypochromasia SLIGHT 09/27/19 04:38 Poikilocytosis SLIGHT 09/27/19 04:38 Anisocytosis 1+ 09/27/19 04:38 Sickle Cells SLIGHT 09/27/19 04:38 Tear Drop Cells SLIGHT 09/20/19 05:29 Ovalocytes 1+ 09/27/19 04:38 [place] Cells SLIGHT 09/27/19 04:38 Schistocytes SLIGHT 09/20/19 05:29 Retic Count (auto) 1.38 % (0.66-2.85) 09/21/19 05:46 Sodium 136.1 mmol/L (137-145) L 09/27/19 04:38 Potassium 4.7 mmol/L (3.6-5.0) 09/27/19 04:38 Chloride 106 mmol/L (98-107) 09/27/19 04:38 Carbon Dioxide 24 mmol/L (22-30) 09/27/19 04:38 Anion Gap 6 (5-19) 09/27/19 04:38 BUN 64 mg/dL (7-20) H 09/27/19 04:38 Creatinine 6.54 mg/dL (0.52-1.25) H 09/27/19 04:38 Est GFR ( Amer) 10 (>60) L 09/27/19 04:38 Est GFR (MDRD) Non-Af 9 (>60) L 09/27/19 04:38 Glucose 101 mg/dL (75-110) 09/27/19 04:38 POC Glucose 109 mg/dL (70-110) 09/27/19 11:07 Calcium 8.9 mg/dL (8.4-10.2) 09/27/19 04:38 Phosphorus 4.1 mg/dL (2.5-4.5) 09/25/19 05:24 Magnesium 1.9 mg/dL (1.6-2.3) 09/25/19 05:24 Iron 22.5 ug/dL (49-181) L 09/21/19 05:46 TIBC 259 ug/dL (250-450) 09/21/19 05:46 % Saturation 9 % 09/21/19 05:46 Transferrin 177.77 mg/dL (206.00-381.00) L 09/21/19 05:46 Ferritin 62.70 ng/mL (17.9-464.0) 09/21/19 05:46 Total Bilirubin 0.8 mg/dL (0.2-1.3) 09/19/19 12:19 Direct Bilirubin 0.3 mg/dL (0.0-0.4) 09/19/19 12:19 Neonat Total Bilirubin Not Reportable 09/19/19 12:19 Neonat Direct Bilirubin Not Reportable 09/19/19 12:19 Neonat Indirect Bili Not Reportable 09/19/19 12:19 AST 20 U/L (17-59) 09/19/19 12:19 ALT 14 U/L (<50) 09/19/19 12:19 Alkaline Phosphatase 49 U/L (38-126) 09/19/19 12:19 Troponin I 0.030 ng/mL 09/19/19 12:19 NT-Pro-B Natriuret Pep 54385 pg/mL (<125) H 09/19/19 12:19 Total Protein 8.0 g/dL (6.3-8.2) 09/19/19 12:19 Albumin 3.7 g/dL (3.5-5.0) 09/19/19 12:19 Vitamin B12 635.0 pg/mL (239-931) 09/21/19 05:46 Folate 18.50 ng/mL (>2.76) 09/21/19 05:46 PTH Intact 84.3 pg/mL (10.0-65.0) H 09/22/19 06:45 Hep Bs Antigen Negative (Negative) 09/21/19 05:46 Hep Bs Antibody, Quant <3.1 mIU/mL (Immunity>9) L 09/21/19 05:46 Hep B Core Total Ab Negative (Negative) 09/21/19 05:46 HCV Quantitation HCV Not Detected IU/mL (.) 09/21/19 05:46 HCV RNA PCR Test Info Comment (.) 09/21/19 05:46 SARS-CoV-2 (PCR) NEGATIVE (NEGATIVE) 09/25/19 11:50 09/19/19 09/19/19 12:19 12:19 Troponin I 0.030 NT-Pro-B Natriuret Pep 58918 H Impressions: Chest X-Ray 09/19/19 12:03 IMPRESSION: Left lower lobe pneumonia. Chest X-Ray 09/25/19 00:00 IMPRESSION: IMAGE(S) OBTAINED DURING PROCEDURE. Guidance Fluoroscopy 09/25/19 00:00 IMPRESSION: IMAGE(S) OBTAINED DURING PROCEDURE. Plan Plan of Treatment: Follow-up with primary care provider within 1 week. Keep dialysis appointment at [facility] on Wednesday morning. Complete full course of antibiotic therapy. Take other medications as prescribed. Eat a heart healthy/dialysis diet. Do NOT smoke. Return to emergency department as needed for concerning symptoms. Goals: Gerardo or DR. Rodriguez will see the patient at Dialysis on Wednesday. Time Spent: Greater than 30 Minutes Stroke Is this a Stroke Patient?: No Acute Heart Failure - Is this a Heart Failure Patient?: Yes Documentation of LVEF assessment?: Yes LVEF: LVEF Greater Than 40% Anticoagulant Therapy: N/A Discharged on Evidence-Based Beta Blockers: Yes Discharged on ARNI?: No-Document Contraindications Reason(s) not discharged on ARNI: Impaired/worsening renal functions Discharged on ARB?: No-document contraindications Reason(s) not Discharged on ARB: Impaired/worsening renal functions Discharged on ACEI?: N/A Discharged on ARNI Reason(s) not Discharged on ACEI: Impaied/worsening renal function For LVEF <35%, discharged on Aldosterone Antagonist?: N/A (LVEF > or = 35%) Follow-up Appointment scheduled within 7 days?: Yes
== END 2019-09-27 12:57 | disposition home or self-care (01) | DRG 189 ==
LOC: ER 11:45 → EH 13:58 → 3W 15:46
PROVIDERS: ADMIT Family Medicine; ATTEND Registered Nurse
PROC: 5A09557 Assistance with Respiratory Ventilation, Greater than 96 Consecutive Hours, Continuous Positive Airway Pressure (ICD-10-PCS; principal; 2019-09-19)
PROC: B24BZZ4 Ultrasonography of Heart with Aorta, Transesophageal (ICD-10-PCS; 2019-09-21)
PROC: 5A1D70Z Performance of Urinary Filtration, Intermittent, Less than 6 Hours Per Day (ICD-10-PCS; 2019-09-22)
PROC: 02HV33Z Insertion of Infusion Device into Superior Vena Cava, Percutaneous Approach (ICD-10-PCS; 2019-09-25)
PROC: B548ZZA Ultrasonography of Superior Vena Cava, Guidance (ICD-10-PCS; 2019-09-25)
PROC: B518ZZA Fluoroscopy of Superior Vena Cava, Guidance (ICD-10-PCS; 2019-09-25)
DX: J96.21 Acute and chronic respiratory failure with hypoxia (principal); J69.0 Pneumonitis due to inhalation of food and vomit; I50.43 Acute on chronic combined systolic (congestive) and diastolic (congestive) heart failure; R78.81 Bacteremia; I13.2 Hypertensive heart and chronic kidney disease with heart failure and with stage 5 chronic kidney disease, or end stage renal disease; N18.5 Chronic kidney disease, stage 5; N17.9 Acute kidney failure, unspecified; Z99.2 Dependence on renal dialysis; Z20.828 Contact with and (suspected) exposure to other viral communicable diseases; B96.89 Other specified bacterial agents as the cause of diseases classified elsewhere; E11.22 Type 2 diabetes mellitus with diabetic chronic kidney disease; D63.1 Anemia in chronic kidney disease; E87.5 Hyperkalemia; E78.5 Hyperlipidemia, unspecified; E66.9 Obesity, unspecified; Z66 Do not resuscitate; G47.30 Sleep apnea, unspecified; K21.9 Gastro-esophageal reflux disease without esophagitis; E78.00 Pure hypercholesterolemia, unspecified; E83.89 Other disorders of mineral metabolism; Z79.4 Long term (current) use of insulin; Z79.899 Other long term (current) drug therapy; Z99.81 Dependence on supplemental oxygen
CPT/HCPCS: 36415; 532; 71045; 77001; 80048; 80053; 82607; 82728; 82746; 82962; 83540; 83550; 83735; 83880; 83970; 84100; 84466; 84484; 85025; 85027; 85045; 86317; 86704; 87040; 87077; 87150; 87186; 87340; 87522; 87635; 93005; 93010; 93306; 94660; 94799; 96374; 99140; 99291; C1713; C9803; J0690; J0692; J0696; J1439; J1642; J1644; J1815; J1940; J2185; J2250; J2704; J3010; J3490; J7030; J7050; Q5105

== ENCOUNTER 2019-09-29 21:14 | Emergency (ER) | payer MEDICARE, MEDICAID ==
[2019-09-29] MEDS ORDERED: TRANEXAMIC ACID INJ/PF 1,000 MG/10 ML SDV IV ONE (23:26)
--- NOTE | 2019-09-29 23:58 | RADIOLOGY REPORT (SQ) ---
EXAM DESCRIPTION: XR CHEST 1 VIEW COMPLETED DATE/TME: 09/29/2019 23:12 CLINICAL HISTORY: 64 years, Male, weakness COMPARISON: None. NUMBER OF VIEWS: TECHNIQUE: LIMITATIONS: None. FINDINGS: There is cardiomegaly. There may be cephalization of pulmonary blood flow, raising the possibility of mild pulmonary vascular congestion. No evidence of pulmonary consolidation or pleural effusion. The mediastinum is unremarkable. The tip of the right-sided central venous catheter is in the right atrium. IMPRESSION: Cardiomegaly with possible mild pulmonary vascular congestion. copyright [address] [employer]- All Rights Reserved
[2019-09-30 00:48] LABS: ABSOLUTE LYMPHOCYTES (AUTO) 0.4 10^3/uL (0.5-4.7); ABSOLUTE MONOCYTES (AUTO) 0.9 10^3/uL (0.1-1.4); BASOPHILS % (AUTO) 0.4 % (0-2); EOSINOPHILS % (AUTO) 0.5 % (0-6); HEMATOCRIT 24.7 % (37.9-51.0); LYMPHOCYTES % (AUTO) 5.1 % (13-45); MEAN CORPUSCULAR HEMOGLOBIN 28.4 pg (27.0-33.4); MEAN CORPUSCULAR VOLUME 89 fl (80-97); MONOCYTES % (AUTO) 10.3 % (3-13); PLATELET COUNT 397 10^3/uL (150-450); RED BLOOD COUNT 2.78 10^6/uL (4.35-5.55); RED CELL DISTRIBUTION WIDTH 17.9 % (11.5-14.0); SEGMENTED NEUTROPHILS % (AUTO) 83.7 % (42-78); TOTAL CELLS COUNTED % (AUTO) 100 %; WHITE BLOOD COUNT 8.4 10^3/uL (4.0-10.5)
[2019-09-30 00:57] LABS: INTERNATIONAL RATION (INR) 1.13; PROTHROMBIN TIME 14.6 SEC (11.4-15.4)
[2019-09-30 00:58] LABS: PARTIAL THROMBOPLASTIN TIME 36.5 SEC (23.5-35.8)
[2019-09-30 01:02] LABS: HEMOGLOBIN 7.9 g/dL (13.5-17.0)
[2019-09-30 01:04] LABS: ALBUMIN 3.5 g/dL (3.5-5.0); ALKALINE PHOSPHATASE 63 U/L (38-126); ANION GAP 6 (5-19); ASPARTATE AMINO TRANSFERASE 39 U/L (17-59); BILIRUBIN,DIRECT 0.1 mg/dL (0.0-0.4); BILIRUBIN,TOTAL 0.7 mg/dL (0.2-1.3); BLOOD UREA NITROGEN 25 mg/dL (7-20); CALCIUM 8.5 mg/dL (8.4-10.2); CARBON DIOXIDE 32 mmol/L (22-30); CHLORIDE 100 mmol/L (98-107); GLUCOSE 103 mg/dL (75-110); POTASSIUM 3.9 mmol/L (3.6-5.0); TOTAL PROTEIN 7.8 g/dL (6.3-8.2)
--- NOTE | 2019-09-30 01:26 | ER Document Report ---
Entered by AMANDA MARINELLI SCRIBE 09/29/19 7005 Acting as scribe for:MALINI WILCOX IV, MD ED General - General Chief Complaint: Post Surgical Bleeding Stated Complaint: PORT ISSUES Time Seen by Provider: 09/29/19 23:04 Primary Care Provider: KINGSLEY KENNY PA-C [Primary Care Provider] - Follow up as needed Mode of Arrival: Ambulatory Information source: Patient Notes: This 64 year old male patient with a history of ESRD, CKD stage V, hypertension, and diabetes presents to the ED today with complaints of bleeding from his dialysis port that started prior to arrival. Patient had a 15.5 [place] dual- lemen permacatheter placed to his right internal jugular vein by Dr. Constantino on 09/25/2019. He reports that he had dialysis for the first time today using the new port and he has been feeling weak since. TRAVEL OUTSIDE OF THE [place] IN LAST 30 DAYS: No - Related Data Allergies/Adverse Reactions: No Known Allergies Allergy (Verified 09/14/15 08:13) Past Medical History - General Information source: Patient, [facility] Records - Social History Smoking Status: Former Smoker Cigarette use (# per day): No Chew tobacco use (# tins/day): No Smoking Education Provided: No Frequency of alcohol use: None Drug Abuse: None Family History: Reviewed & Not Pertinent, Hypertension Patient has suicidal ideation: No Patient has homicidal ideation: No - Past Medical History Cardiac Medical History: Reports: Hx Hypercholesterolemia, Hx Hypertension Pulmonary Medical History: Reports: Hx Asthma Endocrine Medical History: Reports: Hx Diabetes Mellitus Type 2 Renal/ Medical History: Reports: Hx End Stage Renal Disease, Hx Hemodialysis, Hx Renal Insufficiency GI Medical History: Reports: Hx Gastroesophageal Reflux Disease - Immunizations Immunizations up to date: Yes Review of Systems - Review of Systems Constitutional: See HPI, Weakness EENT: No symptoms reported Cardiovascular: No symptoms reported Respiratory: No symptoms reported Gastrointestinal: No symptoms reported Genitourinary: No symptoms reported Male Genitourinary: No symptoms reported Musculoskeletal: No symptoms reported Skin: No symptoms reported Hematologic/Lymphatic: See HPI, Other - Bleeding from dialysis port Neurological/Psychological: No symptoms reported -: Yes All other systems reviewed and negative Physical Exam - Vital signs Vitals: Temp 99.9 F 09/29/19 21:16 - General General appearance: Alert In distress: None - HEENT Head: Normocephalic, Atraumatic Eyes: Normal Pupils: PERRL - Respiratory Respiratory status: No respiratory distress Chest status: Other - Dual lumen permacath to right chest. Mainly coagulated blood noted at the site of insertion. Breath sounds: Normal Chest palpation: Normal - Cardiovascular Rhythm: Regular Heart sounds: Normal auscultation Murmur: No Friction rub: No Gallop: None auscultated - Abdominal Inspection: Normal Distension: No distension Bowel sounds: Normal Tenderness: Nontender - Abdomen soft Organomegaly: No organomegaly - Back Back: Normal, Nontender - Extremities General upper extremity: Normal inspection General lower extremity: Normal inspection - Neurological Neuro grossly intact: Yes Orientation: AAOx4 - Psychological Associated symptoms: Normal affect, Normal mood - Skin Skin Temperature: Warm Skin Moisture: Dry Skin Color: Normal Course - Re-evaluation Re-evalutation: 09/30/19 01:45 Results of ED MSE discussed with patient. Prior H&H reviewed. There the nurse to be no subcutaneous hematoma. The catheter insertion site appears hemostatic at this time with the TXA soaked combat gauze (2 x 2 square) placed to the insertion site and covered with Tegaderm. All questions were answered prior to discharge. Emergency signs and symptoms, reasons to return to the emergency department discussed with patient. - Vital Signs Vital signs: Temp Pulse Resp BP Pulse Ox 98.2 F 86 22 H 140/69 H 99 09/30/19 00:00 09/29/19 21:23 09/30/19 00:00 09/29/19 23:58 09/30/19 00:00 - Laboratory Result Diagrams: 09/30/19 00:10 09/30/19 00:10 Laboratory results interpreted by me: 09/30/19 09/30/19 09/30/19 00:10 00:10 00:10 RBC 2.78 L Hgb 7.9 L Hct 24.7 L RDW 17.9 H Lymph % (Auto) 5.1 L Absolute Lymphs (auto) 0.4 L Seg Neutrophils % 83.7 H APTT 36.5 H Carbon Dioxide 32 H BUN 25 H Creatinine 3.52 H Est GFR ( Amer) 21 L Est GFR (MDRD) Non-Af 17 L - Diagnostic Test Radiology reviewed: Reports reviewed - Consults DR SALINAS, SURGERY Time consulted: 01:47 - DR. SALINAS STATED THAT GIVEN H/H IS STABLE AND SITE APPEARS HEMOSTATIC, PT MAY BE DISCHARGED AND FOLLOW UP WITH DR. CONSTANTINO 10/02/2019 Reason for consultation: 09/30/19 01:47 BLEEDING CATHETER SITE, CATHETER PLACED [address] CONSTANTINO Discharge - Discharge Clinical Impression: Bleeding due to dialysis catheter placement Qualifiers: Encounter type: initial encounter Qualified Code(s): T82.838A - Hemorrhage due to vascular prosthetic devices, implants and grafts, initial encounter Condition: Good Disposition: HOME, SELF-CARE Additional Instructions: Return to the Emergency Department without delay if any worse. HOME CARE INSTRUCTIONS & INFORMATION: Thank you for choosing us for your medical needs. We hope you're satisfied with the care you received. After you leave, you must properly care for your problem and, at the same time, observe its progress. Any condition can change. Some illnesses can change rapidly over hours or days. If your condition worsens, return to the Emergency Department or see your physician promptly. ABOUT YOUR X-RAYS AND EKG'S: If you had an EKG or X-rays taken, they have been read by the Emergency Physician. The X-rays and EKG's will also be read by a Radiologist or Transporter Radiology within 24 hours. If discrepancies are noted, you will be notified by telephone. Please be certain the ED has a correct telephone number & address where you can be reached. Also, realize that some fractures or abnormalities do not show up on initial X-rays. If your symptoms continue, see your physician. ABOUT YOUR LABORATORY TEST: If you had laboratory tests, the results have been reviewed by the Emergency Physician. Some test results (for example cultures) may not be available for several days. You will be contacted if any test result shows you need additional treatment. Please be certain the ED has a correct telephone number and address where you can be reached. ABOUT YOUR MEDICATIONS: You will receive instructions on how to take your medicine on the prescription label you receive. Additional information may be provided by the Pharmacy. If you have questions afterwards, call the ED for clarification or further instructions. Some prescribed medications may cause drowsiness. Do not perform tasks such as driving a car or operating machinery without consulting your Pharmacist. If you feel you need a refill of pain medication, your condition will need re-evaluation. Please do not call for a refill of any medication. ABOUT YOUR SIGNATURE: Signature of this document acknowledges to followin. Understanding that you received emergency treatment and that you may be released before al medical problems are known or treated. Please be certain the ED has a correct phone number & address where you can be reached. 2. Acknowledgement that you will arrange for follow-up care as recommended. 3. Authorization for the Emergency Physician to provide information to your follow-up Physician in order to maximize your care. AT ANY TIME, IF YOUR SYMPTOMS CHANGE SIGNIFICANTLY OR WORSEN OR YOU DEVELOP NEW SYMPTOMS, RETURN TO THE EMERGENCY DEPARTMENT IMMEDIATELY FOR RE-EVALUATION. OUR GOAL IS TO PROVIDE EXCELLENT MEDICAL CARE! WE HOPE THAT WE HAVE MET YOUR EXPECTATIONS DURING YOUR EMERGENCY DEPARTMENT VISIT AND THAT YOU FEEL YOU HAVE RECEIVED EXCELLENT CARE! Referrals: KINGSLEY KENNY PA-C [Primary Care Provider] - Follow up as needed CHIQUI CONSTANTINO MD [ACTIVE STAFF] - 10/02/19 I personally performed the services described in the documentation, reviewed and edited the documentation which was dictated to the scribe in my presence, and it accurately records my words and actions.
[2019-09-30 02:41] VITALS: BP 162/81
== END 2019-09-30 02:38 | disposition home or self-care (01) ==
LOC: ER 21:14
DX: T82.838A Hemorrhage due to vascular prosthetic devices, implants and grafts, initial encounter (principal); I12.0 Hypertensive chronic kidney disease with stage 5 chronic kidney disease or end stage renal disease; E11.22 Type 2 diabetes mellitus with diabetic chronic kidney disease; N18.6 End stage renal disease; R53.1 Weakness; Z99.2 Dependence on renal dialysis
CPT/HCPCS: 99283; 96374; 36415; 87040; 85025; 85610; 85730; 87077; 80053; 87150 ×26; 71045; J3490